=== PATIENT | female | born 1955 | race Caucasian/White ===

== ENCOUNTER 2022-12-13 09:46 | Outpatient (OUT) | payer MEDICARE, SELFPAY ==
--- NOTE | 2022-12-13 09:50 | US_ITS ---
[address] [address] Patient Name: NATHALY FOSTER MRN: [id number] date: 1955 Sex: F Assigned Patient Location: Current Patient Location: US Accession/Order Number: [id number] Exam Date: 12/13/2022 09:51 Report Date: 12/13/2022 12:19 At the request of: JULY SHAW Procedure: US abdomen complete PROCEDURE: US abdomen complete DATE: 12/13/2022 8:51 AM CDT COMPARISONS: None. INDICATION FOR EXAMINATION: 66 years Female Right Upper Quadrant Pain TECHNIQUE: Grayscale and color Doppler technique were utilized to evaluate the abdomen. FINDINGS: LIVER: There is no evidence of focal hepatic abnormalities. Hepatic echogenicity is within normal limits. PIPO HEPATIS: The common bile duct measures 3 mm in diameter. There is no evidence of intrahepatic biliary dilatation. The portal vein is patent with appropriate hepatopedal flow direction. GALLBLADDER: No calculi are identified within the gallbladder. The gallbladder wall thickness is within normal limits. There is no evidence of pericholecystic fluid. Sonographic Serrano sign is absent. PANCREAS: The visualized portions of the pancreas show no evidence of ultrasonic abnormality. KIDNEYS: The right kidney measures 10.0 x 5.0 x 4.6 cm. The left kidney measures 10.9 x 4.8 x 4.7 cm. There is no evidence of hydronephrosis. There is no ultrasonic evidence of solid focal renal masses or other significant renal parenchymal abnormalities. SPLEEN: The spleen is within normal limits in size. Spleen measures up to 9.6 cm in greatest dimension. There is no evidence of focal splenic abnormalities. THE AORTA AND INFERIOR VENA CAVA: The visualized portions of the abdominal aorta are normal in caliber. The visualized portion of the inferior vena cava is patent to Doppler interrogation. ASSESSMENT: These ultrasound images of the abdomen show no evidence of abnormalities. Electronically authenticated by: CATHERINE BE Date: 12/13/2022 12:19
== END 2022-12-13 09:47 | disposition home or self-care (01) ==
PROVIDERS: PCP Nurse Practitioner; Visit Provider Nurse Practitioner
DX: R10.11 Right upper quadrant pain (principal)
CPT/HCPCS: 76700

== ENCOUNTER 2023-04-23 07:32 | Outpatient (OUT) | payer MEDICARE, SELFPAY ==
--- NOTE | 2023-04-23 | MM_ITS ---
Patient Name: NATHALY FOSTER MR#: [id number] : 1955 Exam Date: 04/23/2023 Ordering Doctor: DR. DARRYL Crow REPORT PROCEDURE: MM TOMOSYNTHESIS SCREENING BI COMPARISON: MG MAMM SCREEN 3D [place]OR[place]ZO CAD, 04/06/2021. MG MAMM SCREEN 3D [place] CAD, 04/19/2022. INDICATIONS: Lorenzo Screening Mammogram Calculator Name NCI Breast Cancer Risk Assessment Tool 5 Year Breast Cancer Risk 1.20% Lifetime Breast Cancer Risk 4.60% Personal Breast Cancer No Personal Ovarian Cancer No Treatments None Family Cancers None LOCATION: [facility] BREAST COMPOSITION: Scattered areas fibroglandular density. FINDINGS: DIAGNOSTIC CATEGORY 2--BENIGN FINDING. NO CHANGE FROM COMPARISON. Scattered benign-appearing calcifications are present. Scattered benign-appearing lymph nodes are present. RIGHT BREAST: No significant suspicious finding. LEFT BREAST: No significant suspicious finding. RECOMMENDATIONS: ROUTINE MAMMOGRAM AND CLINICAL EVALUATION IN 12 MONTHS. PLEASE NOTE: A NORMAL MAMMOGRAM DOES NOT EXCLUDE THE POSSIBILITY OF BREAST CANCER. A CLINICALLY SUSPICIOUS PALPABLE LUMP SHOULD BE BIOPSIED. Dictated by: Shaun Patton MD on 04/23/2023 at 14:39 Approved by: Shaun Patton MD on 04/23/2023 at 14:41
== END 2023-04-23 07:33 | disposition home or self-care (01) ==
LOC: MAMMO 07:33
PROVIDERS: PCP Nurse Practitioner; Visit Provider Obstetrics & Gynecology
DX: Z12.31 Encounter for screening mammogram for malignant neoplasm of breast (principal)
CPT/HCPCS: 77063; 77067

== ENCOUNTER 2024-04-25 07:15 | Outpatient (OUT) | payer MEDICARE, SELFPAY ==
--- OUTSIDE RECORDS SUMMARY | 2024-04-25 07:17 | XMS_ITS | CCD ---
Author Organization [facility] Care Team Providers Care Metal Annealer Name Role Phone REQUEST, NONE LISTED Consulting Unavaila ble REQUEST, NONE LISTED Admitting Unavaila ble TOMPKINS, DR FELIBERTO Marte Primary Care Unavailable REQUEST, NONE LISTED Attending Unavaila ble REQUEST, NONE LISTED Admitting Unavaila ble TOMPKINS, DR FELIBERTO Marte Primary Care Unavailable REQUEST, NONE LISTED Attending Unavaila ble TOMPKINS, DR FELIBERTO Marte Primary Care Unavailable ZIEBER, DR KEN Jordan Consulting Unavailable NATAPRDARRYL MARIE Attending Unavailable NATAPRDARRYL MARIE Admitting Unavailable NATAPRAWIDARRYL FAYE Consulting Unavailable NATAPRDARRYL MARIE Attending Unavailable VIRIDIANA COLBY Attending Unavailable GLADYS MAYO Referring Unavailable JamesHelen hays Primary Care Physician Helen Ramirez Attending Unavailable JamesHelen Attending Unavailable JamesHelen Attending Unavailable JamesHelen hays Attending Unavailable Jesse Ott Attending Unavailable Helen Ramirez Referring Unavailable Ambrose Vigil Admitting Unavailable Ambrose Vigil Attending Unavailable Jesse Ott Attending Unavailable Jesse Ott Referring Unavailable Jesse Ott Admitting Unavailable MD Ambrose Vigil Admitting Unavailable MD Ambrose Vigil Attending Unavailable Jesse Ott Referring Unavailable Jesse Ott Admitting Unavailable Jesse Ott Attending Unavailable Jesse Ott Attending Unavailable Jesse Ott Attending Unavailable Jesse Ott Admitting Unavailable Jesse Ott Referring Unavailable Jesse Ott Attending Unavailable Jesse Ott Referring Unavailable Jesse tOt Attending Unavailable Jesse Ott Admitting Unavailable Allergies Allergy Classification Reported Allergen(s) Allergy Type Date of Onset Reaction(s) Facility (5 sources) Amoxicillin; Translations: [amoxicillin] Drug Allergy [facility] Repository (8 sources) Penicillin; Translations: [penicillin] Drug Allergy Eruption of skin (disorder) [facility] (3 sources) No Known Medication Allergies; Translations: [No Known Medication Allergies] Propensity to adverse reactions (disorder) [facility] Repository Medications Current Medications Medication Drug Class(es) Dates Sig (Normalized) Sig (Original) Multivitamins and Minerals (1 source) Start: 04-01-2024 Multivitamins and Minerals Oral, Daily Start Date: 04/01/24 Status: Ordered Vitamin C 500 mg Tab (1 source) Start: 04-01-2024 take 1 tablet by mouth once daily Vitamin C 500 mg Tab 500 mg = 1 tab(s), Oral, Daily Start Date: 04/01/24 Status: Ordered Vitamin D3 1000 intl units (25 mcg) Tab (1 source) Start: 04-01-2024 take 1 tablet by mouth once daily Vitamin D3 1000 intl units (25 mcg) Tab 25 mcg = 1 tab(s), Oral, Daily Start Date: 04/01/24 Status: Ordered Completed/Discontinued Medications Medication Drug Class(es) Dates Sig (Normalized) Sig (Original) hydroCHLOROthiazide 12.5 mg / irbesartan 150 mg oral tablet (5 sources) Thiazide Diuretic, Angiotensin 2 Receptor John Start: 01-15-2024 hydrochlorothiazi de-irbesartan 12.5 mg-150 mg Tab See Instructions, 90 tab(s), Refill(s) 0, TAKE 1 TABLET DAILY, [facility], 163, cm, 12/07/22 8:53:00 EDT, Height/Length Dosing, 90.2, kg, 12/07/22 8:53:00 EDT, Weight Dosing Start Date: 01/15/24 Status: Ordered Problems Problem Classification Problem Date Documented Da te Episodic/Chronic Abdominal hernia (12 sources) Hernia of anterior abdominal wall; Translations: [Ventral hernia without obstruction or gangrene] Onset: 03-03-2024 Episodic Abdominal pain (5 sources) Right upper quadrant pain 12-07-2022 Episodic Essential hypertension (5 sources) Hypertensive disorder 08-14-2022 Chronic Other bone disease and musculoskeletal deformities (1 source) Other specified disorders of bone density and structure, unspecified site; Translations: [OTH D/O BONE DEN STRUCT UNS SITE] Onset: 04-23-2022 Episodic Other nutritional; endocrine; and metabolic disorders (2 sources) Obese class I; Translations: [Body mass index (BMI) 34.0-34.9, adult] Onset: 03-03-2024 Chronic Other nutritional; endocrine; and metabolic disorders (1 source) Obesity; Translations: [Obesity, unspecified] Onset: 03-03-2024 Chronic Other nutritional; endocrine; and metabolic disorders (5 sources) Body mass index 30+ - obesity 01-28-2024 Chronic Other screening for suspected conditions (not mental disorders or infectious disease) (5 sources) Encounter for screening mammogram for malignant neoplasm of breast; Translations: [Encounter for screening for osteoporosis] Onset: 04-19-2022 Episodic Residual codes; unclassified (1 source) Asymptomatic menopausal state; Translations: [ASYMPTOMATIC MENOPAUSAL STATE] Onset: 04-23-2022 Episodic Unclassified (5 sources) Non-smoker 01-28-2024 Unclassified (10 sources) Patient encounter status 12-07-2022 Viral infection (5 sources) Disease caused by 2019-nCoV 08-14-2022 Comment on above: 04/27 Results Test Name Value Interpretation Reference Range Facility Surgical Pathology Reporton 04-18-2024 Surgical Pathology Report [address] [id number]- Surgical Pathology Report Collected Date/Time: 04/16/2024 11:59 EST Pathologist: Jared LIAO PhD, Tod Upton Date/Time: 04/16/2024 12:43 EST Tru LIAO, Jesse Ott MD, Jesse Santillan Surgical Pathology Report - 04/18/2024 12:39 EST - Auth (Verified) Final Diagnosis HERNIA SAC, HERNIORRHAPHY: - BENIGN MEMBRANOUS FIBROADIPOSE TISSUE WITH SINGLE LAYER MESOTHELIAL LINING AND FOCAL CONGESTION, CONSISTENT WITH HERNIA SACS AND CONTENTS. (Electronic Signature) Tod Coleman MD PhD 04/18/2024 12:39 Clinical Information Ventral hernia Pre-Op Diagnosis: Ventral hernia Procedure: Robot assisted ventral hernia repair Post-Op Diagnosis: Ventral hernia Specimen(s) Received Hernia sac Gross Description Received in formalin labeled with patient name, number, and hernia sac is a partially membranous light yellow/cruz/pink soft tissue measuring in aggregate 5 x 5 x 4.5 cm. Cross-section reveals no discrete mass. Director Of Search Engine Optimization section submitted in four cassettes. () [facility] Microscopic Description Microscopic examination performed unless gross only specified. Normal [facility] Comment on above: Performed By: #### [id number] #### [facility] [address] [place] [address] Main OR Intraoperative Recor don 04-17-2024 Main OR Intraoperative Record Main OR Intraoperative Record IntraOp Document Type FT Summary Primary Physician: Jesse Ott MD Finalized Date/Time: 04/17/24 09:01:48 Pt. Name: MILLY FOSTER Nae CostaB./Sex: 1955 Female Med Rec #: [id number] Physician: Jesse Ott MD Financial #: [id number] Pt. Type: A Room/Bed: [place] [address] Admit/Disch: 04/16/24 07:44:47 - 04/16/24 15:00:00 Institution: Case Times FT Entry 1 Patient Times In Room 04/16/24 09:59:00 Out Room 04/16/24 12:27:00 Procedure Times Start 04/16/24 10:21:00 Stop 04/16/24 12:21:00 Anesthesia Times Start 04/16/24 09:59:00 Stop 04/16/24 12:27:00 Last Modified By: Linda Vega RN 04/16/24 12:27:29 General Comments: Tirsoincamina robot docked at 1032, Dr. Ott seated at robot console at 1036, Dr. Ott left robot console at 1058, Davinci robot undocked at 1201. ESPINOZA Cuenca 04/17/24 Chart opened to review and send charges LRoth CSFA Case Attendance FT Entry 1 Entry 2 Entry 3 Case Attendee Dorie JUAREZ, Chicho Ott MD, Raleigh Santa CST Role Performed Anesthesiologist Surgeon - Primary INSPECTOR PACKER/SA Oil Dipper Time In 04/16/24 09:59:00 04/16/24 10:12:00 04/16/24 09:59:00 Time Out 04/16/24 12:27:00 04/16/24 12:06:00 04/16/24 12:27:00 Procedure HERNIA REPAIR, ROBOT HERNIA REPAIR, ROBOT HERNIA REPAIR, ROBOT ASSISTED(.) ASSISTED(.) ASSISTED(.) Comments Dr. Romero supervising, out for lunch at out for lunch [phone] - Dr. Romero covering lunch break. Last Modified By: Gary RN, Linda Vega RN, Linda Vega RN, Linda Marte 04/16/24 12:27:30 04/16/24 12:27:30 04/16/24 12:27:30 Entry 4 Entry 5 Entry 6 Case Attendee Enedelia Mckeon LPN RN, Linda Luong RN, Ann Goff Role Performed Scrub - Primary Pie Filler - Primary Staff - Other Time In 04/16/24 09:59:00 04/16/24 09:59:00 04/16/24 09:59:00 Time Out 04/16/24 12:27:00 04/16/24 12:27:00 04/16/24 10:15:00 Procedure HERNIA REPAIR, ROBOT HERNIA REPAIR, ROBOT HERNIA REPAIR, ROBOT ASSISTED(.) ASSISTED(.) ASSISTED(.) Comments out for lunch at out for lunch at room assist, In for [phone] luch relief at [phone] Last Modified By: Gary RN, Linda Vega RN, Linda Vega RN, Linda Marte 04/16/24 12:27:30 04/16/24 12:27:30 04/16/24 12:27:30 Entry 7 Case Attendee Nbuia Collins CST Role Performed INSPECTOR PACKER/SA Time In 04/16/24 11:07:00 Time Out 04/16/24 11:52:00 Procedure HERNIA REPAIR, ROBOT ASSISTED(.) Comments lunch relief Last Modified By: Linda Vega RN 04/16/24 12:27:30 General Comments: Jeronimo Ramos rep also present for this case. 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 operator Protocols FT Pre-Care Text: Implements protective measures prior to operative or invasive procedure, confirms identity before the operative or invasive procedure, verifies operative procedure, surgical site, and laterality Entry 1 Procedure(s) HERNIA REPAIR, ROBOT Patient Identity Birthday, ID Band ASSISTED(.) Verified (select at Check, Patient least 2): Participation Consents / H and P Anesthesia Consent, Operative Site N/A Verified H&P, Surgery/Procedure Marking Verified Consent, Transfusion Consent Surgical Site Yes Laterality Verified n/a Verified Procedure Verified Yes Correct Patient Yes Position Verified Availability Equipment, Implant, Prep Dry Yes Verified (If Medication Applicable) PreOp Antibiotic Yes Time Out Chicho Ellis Given Participants Tru Dunn MD, Jesse Shin, Raleigh Lombardi CST, Mike VIDAL, Enedelia Asher, Linda Vega RN Time Out Complete 04/16/24 10:20:00 Outcomes Met? Yes Last Modified By: Linda Vega RN 04/16/24 10:39:23 Post-Care Text: The patient is free from signs and symptoms of injury caused by extraneous objects Allergy Information FT Pre-Care Text: Verifies allergies Entry 1 Allergies Reviewed? Yes Allergies Reviewed Self/Patient With Outcomes Met? Yes Last Modified By: Linda Vega RN 04/16/24 10:39:29 Post-Care Text: The patient received appropriate medication(s) safely administered during the perioperative period Surgical Procedures FT Entry 1 Procedure Description Procedure HERNIA REPAIR, ROBOT Modifiers . ASSISTED Surgeon Description ROBOTIC ASSISTED VENTRAL HERNIA REPAIR Primary Procedure Yes Primary Surgeon Tru LIAO, Jesse Shin Start 04/16/24 10:21:00 Stop 04/16/24 12:21:00 Anesthesia Type General Surgical Service General Wound Class 1 - Clean Last Modified By: Linda Vega RN 04/16/24 12:21:15 General Case Data FT Pre-Care Text: Classifies surgical wound, implements aseptic technique, initiates traffic control Entry 1 Case Information OR OR 6 FT Case Level Level 5 Wound Class 1 - Clean Specialty General ASA Class 2 Preop Diagnosis VENTRAL HERNIA Postop Same As Preop Yes Postop Diagnosis VENTRAL HERNIA Outcomes Met? Yes Last Modified By: Linda Vega RN 04/16/24 10:39:41 Post-Care Text: The patient is free from signs and symptoms of infection Skin (more content not included)... Normal [facility] Discharge Instructionson Discharge Instructions Discharge Instructions MILLY FOSTER :1955 Visit Date:04/16/2024 Inpatient Discharge Instructions Your Care Team Admitting Physician - Jesse Ott MD. Referring Physician - Jesse Ott MD Reason for Your Visit VENTRAL HERNIA Discharge Vitals Temperature (Temporal Artery) 36.1 ???C Heart Rate (Monitored) 73 Respiratory Rate 18 Blood Pressure 125/72 What to do next Instructions From Your Doctor Event Name Event Result Discharge Instructions Freetext Okay to remove outer dressings and shower tomorrow. Do not remove Steri-Strips or submerge incision underwater is in pool or tub for 2 weeks after surgery. No if greater than 35 pounds for 6 weeks after surgery. Discharge Activity Resume normal activities in 24 hours, Expect minimal amount of drainage and/or bleeding, Activity as tolerated Discharge Restrictions No driving for 24 hrs, Do not make important decisions for 24 hours, Do not drink alcoholic beverages for 24 hours Discharge Diet(s) Regular Call Your Doctor For Persistent or heavy bleeding, Temperature above 101.5 degrees, Redness, swelling, or pus at operative site, Severe pain at the operative site Discharge Instructions Discharge Instructions Previously Scheduled Follow-Up Appointments Sunday 11:40 AM EST With: Jesse Ott MD Where: [facility] [address] [place] [address]- Sunday 8:20 AM EST With: Helen Gay Where: [address] [address]- Sunday 8:00 AM EST With: Where: [address] [address]- New Follow Up Appointments after Discharge Follow Up with Jesse Ott When: Comments: Appointment has already been scheduled Where: [address] [place] [address]- [phone] Business (1) Medications What How Much When Why Instructions Next Dose New acetaminophen-hydroco done ([place] 325 mg-5 mg oral tablet) 1 Tablets By Mouth Every 6 hours as needed for as needed for pain Ventral hernia Pickup at [facility]/pharmacy #[id number] Unchanged ascorbic acid (Vitamin C 500 mg Tab) 1 Tablets By Mouth Every day Unchanged cholecalciferol (Vitamin D3 1000 intl units (25 mcg) Tab) 1 Tablets By Mouth Every day Unchanged hydrochlorothiazide-i rbesartan (hydrochlorothiazide- irbesartan 12.5 mg-150 mg Tab) See instructions TAKE 1 TABLET DAILY Unchanged multivitamin with minerals (Multivitamins and Minerals) By Mouth Every day Pharmacy Information [facility]/pharmacy #[id number]: [address] [place], [place] [phone] Allergies penicillin (Rash) Devices Implanted/Removed This Visit Notice: You have devices implanted this visit that may not be MRI compatible. Implanted HERNIA REPAIR, ROBOT ASSISTED Abdomen MESH STEX ROUND 12CM (4.8 ) [[id number]] 04/16/2024 Education Materials Laparoscopic Ventral Hernia Repair, Care After The following information offers guidance on how to care for yourself after your procedure. Your health care provider may also give you more specific instructions. If you have problems or questions, contact your health care provider. What can I expect after the procedure? After the procedure, it is common to have pain, discomfort, or soreness. Follow these instructions at home: Medicines ??? Take coun-uex-iktdxhj and prescription medicines only as told by your health care provider. ??? Ask your health care provider if the medicine prescribed to you: ? Requires you to avoid driving or using machinery. ? Can cause constipation. You may need to take these actions to prevent or treat constipation: ? Drink enough fluid to keep your urine pale yellow. ? Take posf-ocl-dutfbbw or prescription medicines. ? Eat foods that are high in fiber, such as beans, whole grains, and fresh fruits and vegetables. ? Limit foods that are high in fat and processed sugars, such as fried or sweet foods. Incision care ??? Follow instructions from your health care provider about how to take care of your incisions. Make sure you: ? Wash your hands with soap and water for at least 20 seconds before and after you change your bandage (dressing) or before you touch your abdomen. If soap and water are not available, use hand field test engineer. ? Change your dressing as told by your health care provider. ? Leave stitches (sutures), skin glue, or adhesive strips in place. These skin closures may need to stay in place for 2 weeks or longer. If adhesive strip edges start to loosen and curl up, you may trim the loose edges. Do not remove adhesive strips completely unless your health care provider tells you to do that. ??? Check your inci (more content not included)... Normal [facility] Comment on above: Result Comment: Elec tronically Signed By: Monika DORAN, Jyothi Child\.br\Date and Time Signed: 04/16/24 12:46 EST Inpatient Patient Summaryon 04-16-2024 Inpatient Patient Summary Inpatient Patient Summary [place] [id number] [facility] Clinical Discharge Instructions PERSON INFORMATION Name: MILLY FOSTER PHYSICIANS Admitting Physician: Jesse Ott MD Attending Physician: Jesse Ott MD PCP: Helen Gay Discharge Diagnosis: Comment: PATIENT EDUCATION INFORMATION Instructions: Laparoscopic Ventral Hernia Repair, Care After Medication Leaflets: Follow up: With: Address: When: Jesse Ott [address] [place] [phone] Business (1) Comments: Appointment has already been scheduled Type Location Start [facility] Post Op [facility] 04/25/2024 11:40 AM 04/25/2024 12:00 PM Confirmed FM Open [facility] 07/09/2024 8:20 AM 07/09/2024 8:40 AM Confirmed FM Medicare Wellness Subsequent [facility] 03/16/2025 8:00 AM 03/16/2025 9:00 AM Confirmed MEDICATION LIST New Medications [id number], [address] [place], [place] [phone], [phone] acetaminophen-hydroco done ([place] 325 mg-5 mg oral tablet) 1 Tablets By Mouth every 6 hours as needed as needed for pain. Refills: 0. Medications to Continue with No Changes Other Medications ascorbic acid (Vitamin C 500 mg Tab) 1 Tablets By Mouth every day. cholecalciferol (Vitamin D3 1000 intl units (25 mcg) Tab) 1 Tablets By Mouth every day. hydrochlorothiazide-i rbesartan (hydrochlorothiazide- irbesartan 12.5 mg-150 mg Tab) TAKE 1 TABLET DAILY. Refills: 0. multivitamin with minerals (Multivitamins and Minerals) By Mouth every day. Comment: Normal [facility] Main OR PACU I Recordon 04-06 Main OR PACU I Record Main OR PACU I Rec ord PACU Phase I Document Type FT Summary Primary Physician: Jesse Ott MD Finalized Date/Time: 04/16/24 13:09:19 Pt. Name: CRISTIAN MILLYMAGDA Nelson/Sex: 1955 Female Med Rec #: [id number] Physician: Jesse Ott MD Financial #: [id number] Pt. Type: A Room/Bed: [place] [address] Admit/Disch: 04/16/24 07:44:47 - Institution: Case Times PACU I FT Pre-Care Text: Identifies barriers to communication and implements measures to provide psychological support Develops individualized plan of care, and ensures continuity of care Maintains patient's dignity and privacy, and maintains patient confidentiality Identifies and reports philosophical, cultural, and spiritual beliefs and values Identifies individual values and wishes concerning care Implements aseptic technique, and administers prescribed antibiotic therapy and immunizing agents as ordered Evaluates postoperative tissue perfusion Implements thermoregulation measures, and monitors body temperature Evaluates postoperative respiratory status Evaluates postoperative cardiac status Evaluates postoperative neurological status Assesses pain control, collaborated in initiating patient-controlled analgesia and implements alternative methods of pain control Verifies allergies, administers prescribed medications and solutions, evaluates response to medications Entry 1 In PACU I 04/16/24 12:29:00 Discharge from PACU 04/16/24 12:59:00 I Outcomes Met? Yes Last Modified By: Evelyn Vargas RN 04/16/24 13:08:52 Post-Care Text: The patient demonstrates knowledge of the expected response to the operative or invasive procedure The patient's care is consistent with the individualized perioperative plan of care The patient's right to privacy is maintained The patient's value system, lifestyle, ethnicity, and culture are considered, respected, and incorporated into the perioperative plan of care The patient participates in decisions affecting his or her perioperative plan of care The patient is free from signs and symptoms of infection The patient has wound/tissue perfusion consistent with or improved from baseline levels established preoperatively The patient is at or returning to normothermia at the conclusion of the immediate postoperative period The patient's respiratory function is consistent with or improved from baseline levels established preoperatively The patient's cardiovascular status is consistent with or improved from baseline levels established preoperatively The patient's cardiovascular status is consistent with or improved from baseline levels established preoperatively The patient demonstrates and/or reports adequate pain control throughout the perioperative period The patient received appropriate medication(s), safely administered during the perioperative period Acuity Level PACU I FT Entry 1 Start Time 04/16/24 12:29:00 Stop Time 04/16/24 12:59:00 Acuity Level Acuity Level I Last Modified By: Evelyn Vargas RN 04/16/24 13:09:12 Finalized By: Evelyn Vargas RN Document Signatures Signed By: Evelyn Vargas RN 04/16/24 13:09 Normal [facility] Main OR PACU II Recordon Main OR PACU II Record Main OR PACU II Record PACU Phase II Document Type FT Summary Primary Physician: Jesse Ott MD Finalized Date/Time: 04/16/24 15:13:34 Pt. Name: MILLY FOSTER/Sex: 1955 Female Med Rec #: [id number] Physician: Jesse Ott MD Financial #: [id number] Pt. Type: A Room/Bed: [facility]/ Admit/Disch: 04/16/24 07:44:47 - Institution: Case Times PACU II FT Pre-Care Text: Identifies barriers to communication and implements measures to provide psychological support and determines knowledge level Develops individualized plan of care, and ensures continuity of care Maintains patient's dignity and privacy, and maintains patient confidentiality Identifies and reports philosophical, cultural, and spiritual beliefs and values Identifies individual values and wishes concerning care administers prescribed antibiotic therapy and immunizing agents as ordered, Evaluates postoperative tissue perfusion Implements thermoregulation measures, and monitors body temperature Evaluates postoperative respiratory status Evaluates postoperative cardiac status Evaluates postoperative neurological status Assesses pain control, collaborated in initiating patient-controlled analgesia and implements alternative methods of pain control Verifies allergies, administers prescribed medications and solutions, evaluates response to medications Entry 1 In PACU II 04/16/24 13:00:00 Discharge from PACU 04/16/24 15:00:00 II Outcomes Met? Yes Last Modified By: Jyothi Frank RN 04/16/24 15:13:32 Post-Care Text: The patient demonstrates knowledge of the expected response to the operative or invasive procedure The patient's care is consistent with the individualized perioperative plan of care The patient's right to privacy is maintained The patient's value system, lifestyle, ethnicity, and culture are considered, respected, and incorporated into the perioperative plan of care The patient participates in decisions affecting his or her perioperative plan of care. The patient is free from signs and symptoms of infection The patient has wound/tissue perfusion consistent with or improved from baseline levels established preoperatively The patient is at or returning to normothermia at the conclusion of the immediate postoperative period The patient's respiratory function is consistent with or improved from baseline levels established preoperatively The patient's cardiovascular status is consistent with or improved from baseline levels established preoperatively The patient's neurological status is consistent with or improved from baseline levels established preoperatively The patient demonstrates and/or reports adequate pain control throughout the perioperative period The patient received appropriate medication(s), safely administered during the perioperative period Finalized By: Jyothi Frank RN Document Signatures Signed By: Jyothi Frank RN 04/16/24 15:13 Normal [facility] Main OR Preoperative Recordo n 04-16-2024 Main OR Preoperative Record Main OR Preoperative Record PreOp Document Type FT Summary Primary Physician: Jesse Ott MD Finalized Date/Time: 04/16/24 10:49:10 Pt. Name: MILLY FOSTER/Sex: 1955 Female Med Rec #: [id number] Physician: Jesse Ott MD Financial #: [id number] Pt. Type: A Room/Bed: [place] H[facility]PITAL/ Admit/Disch: 04/16/24 07:44:47 - Institution: Case Times PreOp FT Pre-Care Text: Verifies consent for planned procedure, identifies individual values and wishes concerning care, includes family members in perioperative teaching Entry 1 Patient Times. In Pre Surgery 04/16/24 07:50:00 Out Pre Surgery 04/16/24 09:57:00 Outcomes Met? Yes Last Modified By: Linda Vega RN 04/16/24 10:49:09 Post-Care Text: The patient participates in decisions affecting his or her perioperative plan of care Finalized By: Linda Vega RN Document Signatures Signed By: Linda Vega RN 04/16/24 10:49 Normal [facility] Operative Reporton 4 Operative Report Operative Report Indication for Surgery 68-year-old female with symptomatic ventral hernia here today for robotic assisted laparoscopic repair Preoperative Diagnosis VENTRAL HERNIA Postoperative Diagnosis VENTRAL HERNIA Operation Robotic repair of 5 Demeter ventral hernia with mesh using IPOM technique Surgeon(s) Tru LIAO, Jesse Shin (Surgeon - Primary) Oil Dipper [place] Anesthesia Elliot Guidry MD (Solutions Engineer) Chicho Ellis (Anesthesiologist Oil Dipper) Estimated Blood Loss 10 cc Urine Output Void prior to OR Findings 5 cm defect repaired with 12 cm Symbotex mesh in IPOM fashion Specimen(s) Pathology Tissue Exam (Hernia sac,AP Specimen) Technique After obtaining informed sent patient was taken to the operating room and positioned supine on the operating room table. General anesthesia was achieved. The patient received perioperative antibiotics. The abdomen was prepped and draped in a sterile fashion. A timeout was performed. A 5 mm incision was made in the Danielson's point. A Veress needle was inserted the peritoneal cavity was inflated to 20 mmHg. Using a 5 mm Optiview trocar the peritoneal cavity was entered. There is no evidence of injury in our entry. Under direct visualization three 8 mm robotic trochars were inserted in the right side of the abdominal wall. The robot was deployed for docking and the robotic arms were docked. The defect was found to measure 5 cm in the anterior abdominal wall. A preperitoneal pocket was done to be created however the peritoneal tissue was exceptionally thin. Multiple holes in the peritoneum were made. The decision was made to convert to from an rTAPP to an IPOM procedure. The the hernia sac was excised. The fascial edges were cleaned up. Using an 0 V-Loc suture the fascial defect was closed in a running fashion. Taking care to tack down some of the free peritoneal tissue in order to recreate the umbilicus. A 12 cm Symbotex synthetic mesh was inserted and placed against the abdominal wall with the center overlying the fascial closure. To initially tack it in place the remainder of the 0 V-Loc suture was used to through the first few stitches. The rest of the circumference of the mesh was sutured in place using a 2-0 V-Loc suture. The mesh was found to lay flat in good position. The hernia sac was removed in an Endo Catch bag. All of our needles were removed in the peritoneal cavity. All instruments removed under direct visualization. The robot was undocked and moved from the operative field. All skin incisions were closed using 4-0 Monocryl in a subcuticular fashion. Skin glue was applied. All counts were correct x2. The patient was awoken returned to the recovery room in stable condition. The patient tolerated the procedure without difficulty. Normal [facility] Comment on above: Result Comment: Elec tronically Signed By: Jesse Ott MD\.br\Date and Time Signed: 04/16/24 12:36 EST Outpatient Surgery Discharge Instructionon 04-16-2024 Outpatient Surgery Discharge Instruction Outpatient Surgery Discharge Instruction [place] [id number] Patient Discharge Instructions PERSON INFORMATION Name: MILLY FOSTER Date of : 1955 Current Date: 04/16/2024 12:33:42 PHYSICIANS Admitting Physician: Jesse Ott MD Discharge Diagnosis: MILLY FOSTER has been given the following list of follow-up instructions, prescriptions, and patient education materials: PATIENT FOLLOW-UP INFORMATION Diet: Regular Discharge Activity: Resume normal activities in 24 hours, Expect minimal amount of drainage and/or bleeding, Activity as tolerated Discharge Restrictions: No driving for 24 hrs, Do not make important decisions for 24 hours, Do not drink alcoholic beverages for 24 hours Call Your Doctor For: Persistent or heavy bleeding, Temperature above 101.5 degrees, Redness, swelling, or pus at operative site, Severe pain at the operative site Additional Instructions: Okay to remove outer dressings and shower tomorrow. Do not remove Steri-Strips or submerge incision underwater is in pool or tub for 2 weeks after surgery. No if greater than 35 pounds for 6 weeks after surgery. IF UNABLE TO CONTACT YOUR PHYSICIAN AND YOU FEEL IT IS AN EMERGENCY, GO TO THE NEAREST EMERGENCY ROOM OR CALL 911 CRISTIAN Sibley PAMELA S, have received the attached patient education materials/instruction s and have verbalized understanding: May we do a follow up call? Yes No I was present when discharge instructions were given Patient Signature Date Clinican/Nurse Signature Date Follow up: With: Address: When: Jesse Ott [address] [place] [address], [place] [address], [address] [address] [phone] Business (1) Comments: Appointment has already been scheduled Type Location Start [facility] Post Op [facility] 04/25/2024 11:40 AM 04/25/2024 12:00 PM Confirmed FM Open [facility] 07/09/2024 8:20 AM 07/09/2024 8:40 AM Confirmed FM Medicare Wellness Subsequent [facility] 03/16/2025 8:00 AM 03/16/2025 9:00 AM Confirmed Pharmacy Information: You may receive a survey from [employer] asking you to rate your care experience. Your feedback is important and will help us understand what we do well and how we can improve the quality of care we provide to you, your loved ones and our community. It???s an honor to serve you. Thank you for choosing [facility] HERE ARE THE MEDICATION CHANGES THAT OCCURRED DURING YOUR HOSPITAL STAY New Medications [id number], [address], [place] [id number], [phone] acetaminophen-hydroco done ([place] 325 mg-5 mg oral tablet) 1 Tablets By Mouth every 6 hours as needed as needed for pain. Refills: 0. Medications to Continue with No Changes Other Medications ascorbic acid (Vitamin C 500 mg Tab) 1 Tablets By Mouth every day. cholecalciferol (Vitamin D3 1000 intl units (25 mcg) Tab) 1 Tablets By Mouth every day. hydrochlorothiazide-i rbesartan (hydrochlorothiazide- irbesartan 12.5 mg-150 mg Tab) TAKE 1 TABLET DAILY. Refills: 0. multivitamin with minerals (Multivitamins and Minerals) By Mouth every day. PATIENT EDUCATION INFORMATION Instructions: Laparoscopic Ventral Hernia Repair, Care After The following information offers guidance on how to care for yourself after your procedure. Your health care provider may also give you more specific instructions. If you have problems or questions, contact your health care provider. What can I expect after the procedure? After the procedure, it is common to have pain, discomfort, or soreness. Follow these instructions at home: Medicines ??? Take utxj-rkr-lntjrxp and prescription medicines only as told by your health care provider. ??? Ask your health care provider if the medicine prescribed to you: ? Requires you to avoid driving or using machinery. ? Can cause constipation. You may need to take these actions to prevent or treat constipation: ? Drink enough fluid to keep your urine pale yellow. ? Take ewlp-iek-jiqjljr or prescription medicines. ? Eat foods that are high in fiber, such as beans, whole grains, and fresh fruits and vegetables. ? Limit foods that are high in fat and processed sugars, such as fried or sweet foods. Incision care ??? Follow instructions from your health care provider about how to take care of your incisions. Make sure you: ? Wash your hands with soap and water for at least 20 seconds before and after you change your bandage (dressing) or before you touch your abdomen. If soap and water are not available, use hand field test engineer. ? Jared (more content not included)... Normal [facility] BMPon 04-01-2024 Anion gap [Moles/Vol] 12 mmol/L Normal 6-16 [facility] Comment on above: Performed By: #### 2 [id number] #### [facility] [address] [place] [address] Calcium [Mass/Vol] 9.6 mg/dL Normal 8.9-11.1 [facility] Comment on above: Performed By: #### 2 [id number] #### [facility] [address] [place] [address] Chloride [Moles/Vol] 101 mmol/L Normal 101-111 [facility] Comment on above: Performed By: #### 2 [id number] #### [facility] [address] [place] [address] CO2 [Moles/Vol] 31 mmol/L Normal 21-31 [facility] Comment on above: Performed By: #### 2 [id number] #### [facility] [address] [place] [address] Creatinine [Mass/Vol] 0.7 mg/dL Normal 0.5-1.3 [facility] Comment on above: Performed By: #### 2 [id number] #### [facility] [address] [place] [address] Glucose [Mass/Vol] 84 mg/dL Normal 55-199 [facility] Comment on above: Performed By: #### 2 [id number] #### [facility] [address] [place] [address] Potassium [Moles/Vol] 3.5 mmol/L Normal 3.5-5.3 [facility] Comment on above: Performed By: #### 2 [id number] #### [facility] [address] [place] [address] Sodium [Moles/Vol] 140 mmol/L Normal 135-145 [facility] Comment on above: Performed By: #### 2 [id number] #### [facility] [address] [place] [address] Urea nitrogen [Mass/Vol] 15 mg/dL Normal 5-21 [facility] Comment on above: Performed By: #### 2 [id number] #### [facility] [address] [place] [address] Urea nitrogen/Creatinine [Mass ratio] 21 No Units High 10-20 [facility] Comment on above: Performed By: #### 2 [id number] #### [facility] [address] [place] [address] CBC w/ Auto Diffon 4 Basophils/100 WBC (Bld) 1.1 % Normal 0.0-2.0 [facility] Comment on above: Performed By: #### 2 [id number] #### [facility] [address] [place] [address] Basophils/Leukocytes Auto (Bld) [Pure # fraction] 0.1 E9/L Normal 0.0-0.2 [facility] Comment on above: Performed By: #### 2 [id number] #### [facility] [address] [place] [address] Eosinophils (Bld) [#/Vol] 0.4 E9/L Normal 0.0-0.5 [facility] Comment on above: Performed By: #### 2 [id number] #### [facility] [address] [place] [address] Eosinophils/100 WBC (Bld) 5.4 % Normal 0.0-8.0 [facility] Comment on above: Performed By: #### 2 [id number] #### [facility] [address] [place] [address] Erythrocyte distribution width (RBC) [Ratio] 13.1 % Normal 10.9-14.2 [facility] Comment on above: Performed By: #### 2 [id number] #### [facility] [address] [place] [address] Hematocrit (Bld) [Volume fraction] 40.5 % Normal 34.0-46.0 [facility] Comment on above: Performed By: #### 2 [id number] #### [facility] [address] [place] [address] Hemoglobin (Bld) [Mass/Vol] 13.9 g/dL Normal 12.0-16.0 [facility] Comment on above: Performed By: #### 2 [id number] #### [facility] [address] [place] [address] Lymphocytes (Bld) [#/Vol] 2.3 E9/L Normal 1.0-4.0 [facility] Comment on above: Performed By: #### 2 [id number] #### [facility] [address] [place] [address] Lymphocytes/100 WBC (Bld) 29.3 % Normal 14.0-50.0 [facility] Comment on above: Performed By: #### 2 [id number] #### [facility] [address] [place] [address] MCH (RBC) [Entitic mass] 30.6 pg Normal 27.0-34.0 [facility] Comment on above: Performed By: #### 2 [id number] #### [facility] [address] [place] [address] MCHC (RBC) [Mass/Vol] 34.4 g/dL Normal 31.4-36.0 [facility] Comment on above: Performed By: #### 2 [id number] #### [facility] [address] [place] [address] MCV (RBC) [Entitic vol] 89.1 fL Normal 80.0-100.0 [facility] Comment on above: Performed By: #### 2 [id number] #### [facility] [address] [place] [address] Monocytes (Bld) [#/Vol] 0.6 E9/L Normal 0.2-1.0 [facility] Comment on above: Performed By: #### 2 [id number] #### [facility] [address] [place] [address] Neutrophils (Bld) [#/Vol] 4.4 E9/L Normal 2.0-7.5 [facility] Comment on above: Performed By: #### 2 [id number] #### [facility] [address] [place] [address] Neutrophils/100 WBC (Bld) 56.4 % Normal 36.0-75.0 [facility] Comment on above: Performed By: #### 2 [id number] #### [facility] [address] [place] [address] Platelet 325.0 E9/L Normal 150.0-500.0 [facility] Comment on above: Performed By: #### 2 [id number] #### [facility] [address] [place] [address] Platelet mean volume (Bld) [Entitic vol] 8.0 fL Normal 6.4-10.8 [facility] Comment on above: Performed By: #### 2 [id number] #### [facility] [address] [place] [address] RBC (Bld) [#/Vol] 4.5 E12/L Normal 4.3-5.9 [facility] Comment on above: Performed By: #### 2 [id number] #### [facility] [address] [place] [address] WBC corrected for nucl RBC Auto (Bld) [#/Vol] 7.8 E9/L Normal 4.0-11.0 [facility] Comment on above: Performed By: #### 2 [id number] #### [facility] [address] [place] [address] CHEMISTRYOrdered By: SYSTEM SYSTEM on 04-01-2024 Anion gap [Moles/Vol] 12 mmol/L Normal 6 - 16 mEq/L R emisol Chem Calcium [Mass/Vol] 9.6 mg/dL Normal 8.9 - 11. 1 mg/dL Remisol Chem Chloride [Moles/Vol] 101 mmol/L Normal 101 - 1 11 mmol/L Remisol Chem CO2 [Moles/Vol] 31 mmol/L Normal 21 - 31 mmol/L Remis ol Chem Creatinine [Mass/Vol] 0.7 mg/dL Normal 0.5 - 1.3 mg/dL Remisol Chem eGFR 95 mL/min/1.73 m2 Normal >=59mL/min /1.7 3 m2 Remisol Chem Glucose [Mass/Vol] 84 mg/dL Normal 55 - 199 mg/dL Re misol Chem Potassium [Moles/Vol] 3.5 mmol/L Normal 3.5 - 5.3 mmol/L Remisol Chem Sodium [Moles/Vol] 140 mmol/L Normal 135 - 145 mmol/L Remisol Chem Urea nitrogen [Mass/Vol] 15 mg/dL Normal 5 - 21 mg/dL Remisol Chem Urea nitrogen/Creatinine [Mass ratio] 21 mg/mg High 10 - 20 Remisol Chem HEMATOLOGYOrdered By: SYSTEM SYSTEM on 04-01-2024 Basophils/100 WBC (Bld) 1.1 % Normal 0.0 - 2.0 % Remisol Heme Basophils/Leukocytes Auto (Bld) [Pure # fraction] 0.1 E9/L Normal 0.0 - 0.2 E9/L Remisol Heme Eosinophils (Bld) [#/Vol] 0.4 E9/L Normal 0.0 - 0.5 E9/L Remisol Heme Eosinophils/100 WBC (Bld) 5.4 % Normal 0.0 - 8.0 % Remisol Heme Erythrocyte distribution width (RBC) [Ratio] 13.1 % Normal 10.9 - 14.2 % Remisol Heme Hematocrit (Bld) [Volume fraction] 40.5 % Normal 34.0 - 46.0 % Remisol Heme Hemoglobin (Bld) [Mass/Vol] 13.9 g/dL Normal 12.0 - 16.0 gm/dL Remisol Heme Lymphocytes (Bld) [#/Vol] 2.3 E9/L Normal 1.0 - 4.0 E9/L Remisol Heme Lymphocytes/100 WBC (Bld) 29.3 % Normal 14.0 - 50.0 % Remisol Heme MCH (RBC) [Entitic mass] 30.6 pg Normal 27.0 - 34.0 pg Remisol Heme MCHC (RBC) [Mass/Vol] 34.4 g/dL Normal 31.4 - 36.0 gm/dL Remisol Heme MCV (RBC) [Entitic vol] 89.1 fL Normal 80.0 - 100.0 fL Remisol Heme Monocytes (Bld) [#/Vol] 0.6 E9/L Normal 0.2 - 1.0 E9/L Remisol Heme Monocytes/100 WBC (Bld) 7.8 % Normal 4.0 - 14.0 % Remisol Heme Neutrophils (Bld) [#/Vol] 4.4 E9/L Normal 2.0 - 7.5 E9/L Remisol Heme Neutrophils/100 WBC (Bld) 56.4 % Normal 36.0 - 75.0 % Remisol Heme Platelet 325.0 E9/L Normal 150.0 - 500.0 E9/L Remisol Heme Platelet mean volume (Bld) [Entitic vol] 8.0 fL Normal 6.4 - 10.8 fL Remisol Heme RBC (Bld) [#/Vol] 4.5 E12/L Normal 4.3 - 5.9 E12/L Remisol Heme WBC corrected for nucl RBC Auto (Bld) [#/Vol] 7.8 E9/L Normal 4.0 - 11.0 E9/L Remisol Heme XR Chest 2 Viewson XR Chest 2 Views Exam Date/Time: 04/01/2024 15:24 EST Reason for Exam: P.A.T. Report IMPRESSION: NO RADIOGRAPHIC EVIDENCE OF ACTIVE DISEASE IN THE CHEST. CLINICAL INFORMATION: P.A.T. COMPARISON: None available. FINDINGS: Two views of the chest were obtained. Heart and mediastinum appear normal. The lungs appear clear. Visualized bony thorax and remainder of the chest appears unremarkable. Ordering Provider: German Munroe FINAL REPORT Dictated: 04/01/2024 3:56 pm Gwyn Jordan MD Signed (Electronic Signature): 04/01/2024 3:56 pm Signed by: Gwyn Jordan MD Transcribed by: YOMI Technologist: MAGDIEL Technical Comments Radiation Dose: Ka,r in mGy = . DAP = . Normal [facility] eGFRon 04-01-2024 eGFR 95 mL/min/1.73 m2 Normal >=59 [facility] Comment on above: Performed By: #### 1 [id number] ####[facility] [id number] [facility] [place] [address] General Surgery Office/Clini c Noteon 03-24-2024 General Surgery Office/Clinic Note General Surgery Office/Clinic Note Chief Complaint Ventral hernia HPI Staff Milly is a 68 y.o. female here for review of CT Scan done 03/18/24 History of Present Illness 68-year-old female known to the general surgery service for ventral hernia, here for follow-up to discuss results of CT scan of the abdomen pelvis which showed a 3 cm defect and supraumbilical hernia which contained portion of the bowel as well as intraperitoneal fat. She remains asymptomatic and denies symptoms of obstruction, incarceration or strangulation Physical Exam Large midline ventral hernia containing bowel and intraperitoneal fat Assessment/Plan 1. 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 Ordered: E&M of Est. Patient Moderate 30-39 Min [id number] Hospital-based Procedure Pre-Surgery Testing per Anesthesia Portions of this record may have been created with voice recognition artificial intelligence software, specifically ChangePanda, Luminal and or Ebook Glue. Substitutions may have occurred due to the inherent limitations of voice recognition and artificial intelligence software. Follow-up No qualifying data available Problem List/Past Medical History Ongoing Abdominal hernia BMI 35.0-35.9,adult COVID-19 Hypertension Nonsmoker Right upper quadrant pain Screening for hyperlipidemia Ventral hernia Wellness examination Historical No qualifying data Procedure/Surgical History Cataract surgery, Colonoscopy. Medications hydrochlorothiazide-i rbesartan 12.5 mg-150 mg Tab, See Instructions Allergies penicillin (Rash) Social History Alcohol - Denies Alcohol Use, 03/03/2024 Current, Beer, Wine, 1-2 times per week, Previous treatment: None. Alcohol use interferes with work or home: No. Drinks more than intended: No. Others hurt by drinking: No. Ready to change: No. Household alcohol concerns: No., 03/10/2024 Substance Abuse - Denies Substance Abuse, 03/03/2024 Never, 03/10/2024 Tobacco - Denies Tobacco Use, 03/10/2024 Never (less than 100 in lifetime) Tobacco Use:., 03/24/2024 Family History Alcoholism: Father. Diabetes mellitus type 2: Sister and Brother. Hypertension: Sister and Brother. Immunizations Vaccine Date Status Comments influenza virus vaccine, inactivated - Not Given Patient Refuses influenza virus vaccine, inactivated 04/19/2022 Recorded influenza virus vaccine, inactivated 02/25/2020 Recorded influenza virus vaccine, inactivated 02/25/2019 Recorded influenza virus vaccine, inactivated 03/22/2018 Recorded hepatitis B adult vaccine 06/22/2000 Recorded Hep A, unspecified formulation 06/22/2000 Recorded hepatitis B adult vaccine 01/20/2000 Recorded Td(adult) unspecified formulation 12/15/1999 Recorded hepatitis B adult vaccine 12/15/1999 Recorded Hep A, unspecified formulation 12/15/1999 Recorded Normal [facility] Comment on above: Result Comment: Elec tronically Signed By: Tru LIAO, Jesse Chowdhurybr\Date and Time Signed: 03/24/24 15:[address] Abdomen/Pelvis w/ Contras ton 03-19-2024 CT Abdomen/Pelvis w/ Contrast Exam Date/Time: 03/18/2024 11:10 EST Reason for Exam: Large ventral hernia;Other (please specify) Report IMPRESSION: 3.2 CM MIDLINE VENTRAL WALL HERNIA CONTAINING FAT AND COLON. NO CT EVIDENCE INCARCERATION OR OBSTRUCTION. 4 MM PERIUMBILICAL VENTRAL WALL HERNIA JUST INFERIOR TO IT. AGAIN, NO CT EVIDENCE OF OBSTRUCTION. GRADE [address] OF THE ABDOMEN AND PELVIS WITH INTRAVENOUS CONTRAST MEDIUM. History: Large ventral hernia. Technical Factors: CT imaging of the abdomen and pelvis were obtained and formatted as 5 mm contiguous axial images from the domes of the diaphragm to the symphysis pubis. Sagittal and coronal reconstructions were also obtained. Oral contrast medium: Barium sulfate, 900 mL.. Intravenous contrast medium: Isovue-300, 100 mL.. Comparison: None. Findings: Lower chest: Lung bases clear. Cardiac size normal. No pericardial effusion. No significant coronary artery calcification evident. Liver: Normal in size, shape, and attenuation. Bile Ducts: Normal in caliber. Gallbladder: No stones or wall thickening. Pancreas: Normal without masses, cysts, ductal dilatation or calcification. Spleen: Normal in size without masses or calcifications. No splenules. Kidneys: Normal in size and enhancement. No hydronephrosis, masses, or stones. Adrenals: Normal. Small bowel: Normal in caliber. Appendix: Normal. Colon: Normal in caliber. Report Peritoneum: No ascites, free air, or fluid collections. Vessels: Aorta normal in course and caliber. Portal vein, splenic vein, superior mesenteric vein are patent. Lymph nodes: Retroperitoneal: No enlarged retroperitoneal lymph nodes. Mesenteric: No enlarged mesenteric lymph nodes. Pelvic: No enlarged pelvic lymph nodes. Ureters: Normal in course and caliber. No calcifications. Bladder: No wall thickening. Reproductive organs: No pelvic masses. Abdominal Wall: 3.2 cm midline supraumbilical anterior abdominal wall defect containing fat in colon. No associated fat stranding or bowel. Fat-containing 4 mm periumbilical anterior abdominal wall defect just caudal to it (series 4, image 44). No diastasis of rectus musculature. No edema or masses. Bones: No bone lesions. Views disc space narrowing L1-L2 through L4-L5, with small anterior osteophytes. 7 mm anterolisthesis L4 on L5. No post operative changes. All CT scans at this facility use dose modulation, iterative reconstruction, and/or weight based dosing when appropriate to reduce radiation dose to as low as reasonably achievable. Ordering Provider: Jesse Ott FINAL REPORT Dictated: 03/19/2024 11:53 am Gwyn Jordan MD Signed (Electronic Signature): 03/19/2024 11:53 am Signed by: Gwyn Jordan MD Transcribed by: YOMI Technologist: AO Technical Comments GFR (mL/min/1/73m2) >60 Contrast: Isovue 300 Contrast amount in ml's: 100 Rectal Contrast Given? No Oral contrast amount in ml's: 900 Normal [facility] CHEMISTRYOrdered By: SYSTEM SYSTEM on 03-14-2024 Creatinine [Mass/Vol] 0.9 mg/dL Normal 0.5 - 1.3 mg/dL Remisol Chem eGFR 70 mL/min/1.73 m2 Normal >=59mL/min /1.7 3 m2 Remisol Chem Creatinineon 03-14-2024 Creatinine [Mass/Vol] 0.9 mg/dL Normal 0.5-1.3 [facility] Comment on above: Performed By: #### 2 [id number] #### [facility] [address] [place] [address] eGFRon 03-14-2024 eGFR 70 mL/min/1.73 m2 Normal >=59 [facility] Comment on above: Performed By: #### 1 [id number] #### [facility] [address] [place] [address] Ambulatory Visit Summaryon 1 05-10-2023 Ambulatory Visit Summary Ambulatory Visit Summary MILLY FOSTER :1955 Visit Date:03/10/2024 Ambulatory Visit Instructions Your Diagnosis Encounter for initial annual wellness visit in Medicare patient Encounter for hepatitis C screening test for low risk patient Immunization declined Hypertension Advanced care planning/counseling discussion Ventral hernia Family history of diabetes mellitus Obesity due to excess calories Your Care Team Attending Physician - Helen Gay Primary Care Physician - Helen Gay This Is Your Medications List hydrochlorothiazide-i rbesartan (hydrochlorothiazide- irbesartan 12.5 mg-150 mg Tab) Procedures Performed Cataract surgery, Colonoscopy. Discharge Vitals Heart Rate (Peripheral) 71 Respiratory Rate 14 Blood Pressure 136/60 Height 161.5 cm Height 64 in Weight 91.5 kg Weight 201.3 lb BMI 35.08 What to do next Scheduled Follow-Up Appointments Sunday 11:00 AM EST With: Where: [facility] Sunday 8:20 AM EST With: Helen Gay Where: [address] [id number]- Sunday 8:00 AM EST With: Where: [address] [address]- You Need to Complete the Following HCV Antibody RFX to Quant PCR, Blood, Routine collect, 03/10/24, Order for future visit, Lab Collect, Encounter for hepatitis C screening test for low risk patient, Not Required, Print Label By Order Location Medications What How Much When Instructions Unchanged hydrochlorothiazide-i rbesartan (hydrochlorothiazide- irbesartan 12.5 mg-150 mg Tab) See instructions TAKE 1 TABLET DAILY Allergies penicillin (Rash) Problems Ongoing - Any problem that you are currently receiving treatment for. Abdominal hernia BMI 35.0-35.9,adult COVID-19 Hypertension Nonsmoker Right upper quadrant pain Screening for hyperlipidemia Ventral hernia Wellness examination Patient Survey You may receive a survey via text or e-mail asking about your office visit. Please share your experience with us by completing your survey. We appreciate your feedback and thank you for choosing us for your care. Education Materials Preventing Type 2 Diabetes Mellitus Type 2 diabetes, also called type 2 diabetes mellitus, is a long-term (chronic) disease that affects sugar (glucose) levels in your blood. Normally, a hormone called insulin allows glucose to enter cells in your body. The cells use glucose for energy. With type 2 diabetes, you will have one or both of these problems: ??? Your pancreas does not make enough insulin. ??? Cells in your body do not respond properly to insulin that your body makes (insulin resistance). Insulin resistance or lack of insulin causes extra glucose to build up in the blood instead of going into cells. As a result, high blood glucose (hyperglycemia) develops. That can cause many complications. Being overweight or obese and having an inactive (sedentary) lifestyle can increase your risk for diabetes. Type 2 diabetes can be delayed or prevented by making certain nutrition and lifestyle changes. How can this condition affect me? If you do not take steps to prevent diabetes, your blood glucose levels may keep increasing over time. Too much glucose in your blood for a long time can damage your blood vessels, heart, kidneys, nerves, and eyes. Type 2 diabetes can lead to chronic health problems and complications, such as: ??? Heart disease. ??? Stroke. ??? Blindness. ??? Kidney disease. ??? Depression. ??? Poor circulation in your feet and legs. In severe cases, a foot or leg may need to be surgically removed (amputated). What can increase my risk? You may be more likely to develop type 2 diabetes if you: ??? Have type 2 diabetes in your family. ??? Are overweight or obese. ??? Have a sedentary lifestyle. ??? Have insulin resistance or a history of prediabetes. ??? Have a history of -related (gestational) diabetes or polycystic ovary syndrome (PCOS). What actions can I take to prevent this? It can be difficult to recognize signs of type 2 diabetes. Taking action to prevent the disease before you develop symptoms is the best way to avoid possible damage to your body. Making certain nutrition and lifestyle changes may prevent or delay the disease and related health problems. Nutrition ??? Eat healthy meals and snacks regularly. Do not skip meals. Fruit or a handful of nuts is a healthy snack between meals. ??? Drink water throughout the day. Avoid drinks that contain added sugar, such as soda or sweetened tea. Drink enough fluid to keep your urine pale yellow. ??? Follow instructions from your health care provider about eating or drinking restricti (more content not included)... Normal [facility] Family Medicine Office/Clini c Noteon 03-10-2024 Family Medicine Office/Clinic Note Family Medicine Office/Clinic Note Chief Complaint Initial Medicare Wellness Review of Systems PHQ Score Initial Depression Screen Score: 0 SCORE Physical Exam Vitals & Measurements HR: 71(Peripheral) RR: 14 BP: 136/60 SpO2: 97% HT: 161.5 cm HT: 64 in WT: 91.5 kg WT: 201.3 lb BMI: 35.08 Assessment/Plan 1. Encounter for initial annual wellness visit in Medicare patient (Z00.00: Encounter for general adult medical examination without abnormal findings) The patient was given a customized and personalized print out of all the current AHRQ USPSTF???s recommendations for preventative services and all current CDC recommended immunizations, relevant risk recommendations and the following patient brochures were given. Reviewed Medicare Prevention Services checklist. CDC-Falls Prevention and home safety screening reviewed. Patient denies any falls in last 12 months, voices no worry about falling. Exhibits no problems with sitting, standing or ambulation. Patient aware with keeping walk way area free of clutter to prevent tripping and/or falling. [place] Advance Directives reviewed. Documents provided to patient to take home. see # 5. Patient denies any problems with ADL???s and Instrumental ADL???s. Cognitive screening completed with memory and clock face drawing. No deficits noted. Patient recited 3/3 memory words. Immunization record reviewed, discussed Shingrix vaccine with educational handout and availability. No COVID vaccines have been administered. Allergies and medications reviewed and up to date. No concerns with taking medication as prescribed. Reviewed OTC medications, medication list up to date. Blood tests were reviewed: Discussed what tests need to be updated. Labs were previously ordered by pcp, she has not had them completed yet. Patient will have completed prior to next PCP visit. [place] [facility] No concerns with bowel/ bladder. Colonoscopy last completed 09/29/2015. Reviewed pain symptoms: Patient denies pain. Reviewed all outside providers that patient follows. Last visit summary notes available in chart and/or have been requested. Patient declines any signs or symptoms of depression at this time. 8 minutes spent with screening and documentation. PHQ2 screening score 0. Patient drinks alcohol 2-3 or more times weekly 1-2 drinks, denies concerns. 8 minutes spent with screening and documentation. Audit score 3. Follow up scheduled with PCP, 07/09/2024 AWV has been scheduled, 03/16/2025 Medicare provides yearly screening for alcohol and depression concerns. This is completed during our Medicare wellness visit for those who do not have a current diagnosis of depression or concerns with alcohol use. I spent a total of 17 minutes on this date of service which included preparing to see the patient, face to face patient care, completing clinical documentation, obtaining and/or reviewing separately obtained history, counseling and educating the patient with handouts. Explanations were provided with reviewing questionnaires. AUDIT risk assessment screening completed, risk score 3 with patient denying concerns with use. Completed PHQ-2 risk assessment for depression with risk score 0, negative findings. Patient has been reminded to notify the provider if there would be a change or concerns with symptoms with fear, unable to sleep, worrying too much or feeling down and/or sad with lost of interest with daily activities. Will continue to monitor with screening yearly during Medicare wellness visits. 2. Encounter for hepatitis C screening test for low risk patient (Z11.59: Encounter for screening for other viral diseases) Discussed with patient the risk of Hepatitis C for people born between 4973-2309. Handout CDC-Hepatitis C given. Patient to have labs drawn for Hepatitis C screening based on year of . Test ordered and printed as patient requested labs done at [facility]. 3. Immunization declined (Z28.21: Immunization not carried out because of patient refusal) CDC recommendations were reviewed with the patient during today's Medicare wellness visit. Patient is due for a HIGH dose flu vaccine, patient does decline to have. Reviewed educational handout with vaccine information and What you need to know was reviewed, patient reminded with the benefits of influenza vaccination, especially now during COVID-19. Patient does voice understanding, encouraged to discuss with PCP. 4. Hypertension (I10: Essential (primary) hypertension) Patient is taking hctz- irbestartan daily as directed. Does monitor BP pressure at home. HTN stoplight reviewed with BP goal to be <140/90. Reviewed different factors that can alter blood pressure readings. Education handout provided with s/s to monitor for and report to provider. Patient is encouraged to increase portions of fruit, vegetables, fiber and increase exercise as much as tolerable. Reviewed importance with monitoring foods high in salt content and encouraged to limit intake, if unsure encouraged to (more content not included)... Normal [facility] Comment on above: Result Comment: Elec tronically Signed By: Helen Gay\.br\Date and Time Signed: 03/10/24 12:59 EST\.br\Electronically Co-Signed By: Mariola Elias\.br\Date and Time Co-Signed: 03/10/24 09:14 EST Ambulatory Visit Summaryon 0 01-28-2024 Ambulatory Visit Summary Ambulatory Visit Summary MILLY FOSTER :1955 Visit Date:01/28/2024 Ambulatory Visit Instructions Your Diagnosis Wellness examination Hypertension Screening for hyperlipidemia Abdominal hernia BMI 34.0-34.9,adult Obesity (BMI 30.0-34.9) Nonsmoker Your Care Team Attending Physician - Helen Gay Primary Care Physician - Helen Gay This Is Your Medications List hydrochlorothiazide-i rbesartan (hydrochlorothiazide- irbesartan 12.5 mg-150 mg Tab) Procedures Performed Cataract surgery, Colonoscopy. Discharge Vitals Temperature (Temporal Artery) 37.2 ?C Heart Rate (Peripheral) 66 Respiratory Rate 16 Blood Pressure 136/84 Height 163 cm Height 64 in Weight 90.7 kg Weight 199.54 lb BMI 34.14 What to do next Scheduled Follow-Up Appointments Sunday 9:30 AM EDT Where: [facility] [id number] [place] [address]- Medications What How Much When Instructions Unchanged hydrochlorothiazide-i rbesartan (hydrochlorothiazide- irbesartan 12.5 mg-150 mg Tab) See instructions TAKE 1 TABLET DAILY Allergies amoxicillin (Rash) penicillin (Rash) Problems Ongoing - Any problem that you are currently receiving treatment for. Abdominal hernia BMI 34.0-34.9,adult COVID-19 Hypertension Nonsmoker Obesity (BMI 30.0-34.9) Right upper quadrant pain Screening for hyperlipidemia Ventral hernia Wellness examination Patient Survey You may receive a survey via text or e-mail asking about your office visit. Please share your experience with us by completing your survey. We appreciate your feedback and thank you for choosing us for your care. [facility] Family Medicine Office/Clini c Noteon 01-28-2024 Family Medicine Office/Clinic Note Family Medicine Office/Clinic Note HPI Staff Milly is a 68 year old female presenting with yearly checkup & medication refills. Does nee refill of HCTZ/Irbesartan. Health Maintenance: Colonoscopy: 2017 Dexa: 04/19/22 Mammo: 04/23/23 Pap: Last Labs: 04/2022 States abdominal US was done last yr. She was not notified of results. Would like to obtain. Patient is here for follow up on hypertension. How often are you checking your blood pressure? Couple times a week What are your average readings? _120/80 Yearly BMP: _04/2022 History of Present Illness pt presents today for wellness visit. Review of Systems PHQ Score Initial Depression Screen Score: 0 SCORE Physical Exam Vitals & Measurements T: 37.2 ?C(Temporal Artery) HR: 66(Peripheral) RR: 16 BP: 136/84 SpO2: 98% HT: 64 in HT: 163 cm WT: 90.7 kg WT: 199.54 lb BMI: 34.14 General: alert, no acute distress ENMT: oral mucosa moist, no pharyngeal erythema or exudate Cardiovascular: regular rate and rhythm, normal peripheral perfusion Respiratory: Lungs CTA, respirations non labored Extremities: no deformity, no trauma Neurological: oriented x 4, LOC appropriate for age, CN II-XII intact, motor strength equal & normal bilaterally, speech normal Assessment/Plan 1. Wellness examination (Z00.00: Encounter for general adult medical examination without abnormal findings) pt presents today for annual exam. pt is doing well. has many questions about bladder surgery and hernia surgery. RTC for AMW visit Ordered: Est Preventative 65+ years 2. Hypertension (I10: Essential (primary) hypertension) BP at goal Ordered: Est Preventative 65+ years 3. Screening for hyperlipidemia (Z13.220: Encounter for screening for lipoid disorders) lipid panel order provided to be done at [facility] Ordered: Est Preventative 65+ years 4. Abdominal hernia (K46.9: Unspecified abdominal hernia without obstruction or gangrene) pt has a pretty large abdominal hernia about the size of a baseball. it is even visible through her shirt. will refer to General surgery. she would like to have her hysterectomy and bladder sling first. Ordered: Est Preventative 65+ years 5. BMI 34.0-34.9,adult (Z68.34: Body mass index [BMI] 34.0-34.9, adult) BMI education Ordered: Est Preventative 65+ years 6. Obesity (BMI 30.0-34.9) (E66.9: Obesity, unspecified) see above Ordered: Est Preventative 65+ years 7. Nonsmoker (Z78.9: Other specified health status) continue not smoking Ordered: Est Preventative 65+ years Follow-up No qualifying data available Problem List/Past Medical History Ongoing Abdominal hernia BMI 34.0-34.9,adult COVID-19 Hypertension Nonsmoker Obesity (BMI 30.0-34.9) Right upper quadrant pain Screening for hyperlipidemia Ventral hernia Wellness examination Historical No qualifying data Procedure/Surgical History Cataract surgery, Colonoscopy. Medications hydrochlorothiazide-i rbesartan 12.5 mg-150 mg Tab, See Instructions Allergies amoxicillin (Rash) penicillin (Rash) Social History Tobacco Never (less than 100 in lifetime) Tobacco Use:. Never Smokeless Tobacco Use:. Household tobacco concerns: No. Yes, 01/28/2024 Family History Alcoholism: Father. Diabetes mellitus type 2: Sister and Brother. Hypertension: Sister and Brother. Immunizations Vaccine Date Status influenza virus vaccine, inactivated 04/19/2022 Recorded influenza virus vaccine, inactivated 02/25/2020 Recorded influenza virus vaccine, inactivated 02/25/2019 Recorded influenza virus vaccine, inactivated 03/22/2018 Recorded hepatitis B adult vaccine 06/22/2000 Recorded Hep A, unspecified formulation 06/22/2000 Recorded hepatitis B adult vaccine 01/20/2000 Recorded Td(adult) unspecified formulation 12/15/1999 Recorded hepatitis B adult vaccine 12/15/1999 Recorded Hep A, unspecified formulation 12/15/1999 Recorded Normal [facility] Comment on above: Result Comment: Elec tronically Signed By: James YE, Helen Jacome\.br\Date and Time Signed: 01/28/24 09:45 EDT Outside Mammographyon 2022 Outside Mammography [id number] Normal [facility] CBC AUTO DIFFon 04-19-2022 BASO # 0.1 103/ul Normal 0.0-0.1 [facility] Comment on above: Performed By: #### D ATCBC #### [facility] [address] [address] [address] Tod Coleman Basophils/100 WBC (Bld) 1.8 % Normal 0.2-2.0 [facility] Comment on above: Performed By: #### D ATCBC #### [facility] [address] [address] [address] Tod Coleman EO # 0.4 103/ul Normal 0.0-0.7 [facility] Comment on above: Performed By: #### D ATCBC #### [facility] [address] [address] [address] Tod Coleman Eosinophils/100 WBC (Bld) 5.5 % Normal 0.9-7.0 [facility] Comment on above: Performed By: #### D ATCBC #### [facility] [address] [address] [address] Tod Coleman Erythrocyte distribution width (RBC) [Ratio] 12.3 % Normal 11.0-15.0 [facility] Comment on above: Performed By: #### D ATCBC #### [facility] [address] [address] [address] Tod Coleman Hematocrit (Bld) [Volume fraction] 39.1 % Normal 36.0-48.0 [facility] Comment on above: Performed By: #### D ATCBC #### [facility] [address] [address] [address] Tod Coleman Hemoglobin (Bld) [Mass/Vol] 13.3 g/dL Normal 12.0-16.0 [facility] Comment on above: Performed By: #### D ATCBC #### [facility] [address] [address] [address] Tod Coleman IG # 0.02 10e3/ul Normal 0.00-0.03 [facility] Comment on above: Performed By: #### D ATCBC #### [facility] [address] [address] [address] Tod Coleman IG % 0.3 % Normal 0.0-0.5 [facility] Comment on above: Performed By: #### D ATCBC #### [facility] [address] [address] [address] Tod Coleman LYMPH # 1.8 103/ul Normal 1.2-3.8 [facility] Comment on above: Performed By: #### D ATCBC #### [facility] [address] [address] [address] Tod Coleman Lymphocytes/100 WBC (Bld) 22.5 % Normal 20.5-60.0 [facility] Comment on above: Performed By: #### D ATCBC #### [facility] [address] [address] [address] Tod Coleman MCH (RBC) [Entitic mass] 30.0 pg Normal 26.7-34.0 [facility] Comment on above: Performed By: #### D ATCBC #### [facility] [address] [address] [address] Tod Coleman MCHC (RBC) [Mass/Vol] 34.0 g/dL Normal 29.9-35.2 [facility] Comment on above: Performed By: #### D ATCBC #### [facility] [address] [address] [address] Tod Coleman MCV (RBC) [Entitic vol] 88.1 fL Normal 81.0-99.0 [facility] Comment on above: Performed By: #### D ATCBC #### [facility] [address] [place] [address] Dr. Tod Coleman MONO # 0.5 103/ul Normal 0.3-0.8 [facility] Comment on above: Performed By: #### D ATCBC #### [facility] [address] [place] [address] Dr. Tod Coleman Monocytes/100 WBC (Bld) 6.2 % Normal 1.7-12.0 [facility] Comment on above: Performed By: #### D ATCBC #### [facility] [address] [place] [address] Dr. Tod Coleman NEUT # 5.0 103/ul Normal 1.4-6.5 [facility] Comment on above: Performed By: #### D ATCBC #### [facility] [address] [place] [address] Dr. Tod Coleman Neutrophils/100 WBC (Bld) 63.7 % Normal 43.0-75.0 [facility] Comment on above: Performed By: #### D ATCBC #### [facility] [address] [place] [address] Dr. Tod Coleman Platelet mean volume (Bld) [Entitic vol] 9.2 fL Critically low 9.5-13.5 [facility] Comment on above: Performed By: #### D ATCBC #### [facility] [address] [place] [address] Dr. Tod Coleman PLT 312 103/ul Normal 150-450 [facility] Comment on above: Performed By: #### D ATCBC #### [facility] [address] [place] [address] Dr. Tod Coleman RBC 4.44 106/ul Normal 4.20-5.40 [facility] Comment on above: Performed By: #### D ATCBC #### [facility] [address] [place] [address] Dr. Tod Coleman WBC 7.9 103/ul Normal 4.0-11.0 [facility] Comment on above: Performed By: #### D ATCBC #### [facility] [address] [address] [address] Tod Coleman ARIN- BMP WITH LIPIDon 2021 Anion gap [Moles/Vol] 13.0 mmol/L Normal [facility] Comment on above: Performed By: #### D ATBMP #### [facility] [address] [address] [address] Tod Coleman Calcium [Mass/Vol] 9.4 mg/dL Normal 8.5-10.1 [facility] Comment on above: Performed By: #### D ATBMP #### [facility] [address] [address] [address] Tod Coleman Chloride [Moles/Vol] 101 mmol/L Normal 98-107 [facility] Comment on above: Performed By: #### D ATBMP #### [facility] [address] [address] [address] Tod Coleman Cholesterol [Mass/Vol] 270 mg/dL Critically high <=200 [facility] Comment on above: Performed By: #### D ATBMP #### [facility] [address] [address] [address] Tod Coleman Cholesterol in HDL [Mass/Vol] 73 mg/dL Critically high 40-60 [facility] Comment on above: Performed By: #### D ATBMP #### [facility] [address] [address] [address] Tod Coleman Cholesterol in LDL [Mass/Vol] 176.8 mg/dL Normal [facility] Comment on above: Performed By: #### D ATBMP #### [facility] [address] [address] [address] Tod Coleman CO2 [Moles/Vol] 31.4 mmol/L Normal 21.0-32.0 [facility] Comment on above: Performed By: #### D ATBMP #### [facility] [address] [address] [address] Tod Coleman Creatinine [Mass/Vol] 0.78 mg/dL Normal 0.55-1.02 [facility] Comment on above: Performed By: #### D ATBMP #### [facility] [address] [address] [address] Tod Coleman EGFR-AF FILIPINO >60 Normal >=60 [facility] Comment on above: Performed By: #### D ATBMP #### [facility] [address] [address] [address] Tod Coleman EGFR-NON AF FILIPINO >60 Normal >=60 [facility] Comment on above: Performed By: #### D ATBMP #### [facility] [address] [address] [address] Tod Coleman Glucose [Mass/Vol] 99 mg/dL Normal 74-106 [facility] Comment on above: Performed By: #### D ATBMP #### [facility] [address] [address] [address] Tod Coleman HDL NORMAL > or = 60 mg/dl - LO W CARDIOVASCULAR RISK <40 mg/dl - HIGH CARDIOVASCULAR RISK Normal [facility] Comment on above: Performed By: #### D ATBMP #### [facility] [address] [address] [address] Tod Coleman LDL CALC NORMAL SEE BELOW Normal [facility] Comment on above: Result Comment: <100 mg/dl OPTIMAL 100 - 129 mg/dl NEAR OR ABOVE OPTIMAL 130 - 159 mg/dl BORDERLINE HIGH 160 - 189 mg/dl HIGH >190 mg/dl VERY HIGH Performed By: #### D ATBMP #### [facility] [address] [address] [address] Tod Coleman Potassium [Moles/Vol] 3.4 mmol/L Critically low 3.5-5.1 [facility] Comment on above: Performed By: #### D ATBMP #### [facility] [address] [address] [address] Tod Coleman Sodium [Moles/Vol] 142 mmol/L Normal 136-145 [facility] Comment on above: Performed By: #### D ATBMP #### [facility] [address] [address] [address] Tod Coleman Triglyceride [Mass/Vol] 101 mg/dL Normal <=150 [facility] Comment on above: Performed By: #### D ATBMP #### [facility] [address] [address] [address] Tdo Coleman Urea nitrogen [Mass/Vol] 19.0 mg/dL Critically high 7.0-18.0 [facility] Comment on above: Performed By: #### D ATBMP #### [facility] [address] [place] [address] Dr. Tod Coleman Urea nitrogen/Creatinine [Mass ratio] 24.4 mg/mg Normal [facility] Comment on above: Performed By: #### D ATBMP #### [facility] [address] [address] [address] Tod Coleman VLDL CALC 20.2 mg/dL Normal [facility] Comment on above: Performed By: #### D ATBMP #### [facility] [address] [address] [address] Tod Coleman MG MAMM SCREEN 3D LORENZO CADon 04-19-2022 MG MAMM SCREEN 3D LORENZO CAD Patient: MILLY FOSTER Exam Date: 04/19/2022 : 1955 Gender:F Ordering : DR. DARRYL SHAH D.O. Admission #: [id number] Family : Order #: [id number] CLICK HERE TO VIEW EXAM RADIOLOGY REPORT PROCEDURE: MAMMOGRAM SCREENING 3D BILATERAL CAD COMPARISON: MG MAMM SCREEN 3D LORENZO CAD, 04/06/2021. MG MAMM SCREEN LORENZO W CAD, 03/26/2020. INDICATIONS: Screening mammography Calculator Name NCI Breast Cancer Risk Assessment Tool 5 Year Breast Cancer Risk 1.20% Lifetime Breast Cancer Risk 4.70% Personal Breast Cancer No Personal Ovarian Cancer No Treatments None Family Cancers None LOCATION: [facility] BREAST COMPOSITION: Scattered areas fibroglandular density. FINDINGS: DIAGNOSTIC CATEGORY 2--BENIGN FINDING: RIGHT BREAST: No significant suspicious finding. Scattered benign-appearing lymph nodes are present. No significant change has occurred. LEFT BREAST: No significant suspicious finding. Scattered benign-appearing lymph nodes are present. No significant change has occurred. RECOMMENDATIONS: ROUTINE MAMMOGRAM AND CLINICAL EVALUATION IN 12 MONTHS. PLEASE NOTE: A NORMAL MAMMOGRAM DOES NOT EXCLUDE THE POSSIBILITY OF BREAST CANCER. A CLINICALLY SUSPICIOUS PALPABLE LUMP SHOULD BE BIOPSIED. Dictated by: Ken Lopez M.D. on 04/19/2022 at 14:38 Approved by: Ken Lopez M.D. on 04/19/2022 at 14:49 Normal [facility] XR DEXA BONE DENSITYon 04-19 XR DEXA BONE DENSITY EXAMINATION: XR DEX A BONE DENSITY, 04/19/2022 7:31 AM EST HISTORY: Menopause present COMPARISON: DEXA bone densitometry 03/26/2017 TECHNIQUE: Dual-energy X-ray absorptiometry (DEXA) bone density study performed for the axial skeleton. FINDINGS: SPINE ANALYSIS: Average bone mineral density is 1.490 g/cm2. T-score (standard deviation relative to young adult mean): 2.6 . +5.9% change since prior study. HIP ANALYSIS: Lowest bone mineral density is within the right femoral neck, 0.880 g/cm2. T-score (standard deviation relative to young adult mean): -1.1 . -3.5% change since prior study. IMPRESSION: [employer] Classification: Osteopenia - Moderate Fracture Risk Electronically authenticated by: KEN LOPEZ Date: 2022-04-19 08:59 Normal [facility] Vital Signs Date Time Vital Sign Value Performing Clinician Faci opal 04-01-2024 14:37-0500 Diastolic blood pressure 102 mm[Hg] Jesse ZuletaQosmos [facility] 04-01-2024 14:37-0500 Heart rate 66 /min Jesse Ott [facility] 04-01-2024 14:37-0500 Mean blood pressure 128 mm[Hg] Jesse MostLikelytaviaQosmos [facility] 04-01-2024 14:37-0500 Systolic blood pressure 178 mm[Hg] Jesse ZuletaQosmos [facility] 04-01-2024 14:36-0500 Heart rate 76 /min Jesse Mourany [facility] 04-01-2024 14:36-0500 SaO2% (BldA) [Mass fraction] 99 % Jesse Mourany [facility] 04-01-2024 14:36-0500 Body temperature 97.88 [degF] Jesse Mourany [facility] 04-01-2024 14:35-0500 Blood Pressure Location Jesse Mourany [facility] 04-01-2024 14:35-0500 Diastolic blood pressure 102 mm[Hg] Jesse Mourany [facility] 04-01-2024 14:35-0500 Mean blood pressure 126 mm[Hg] Jesse Mourany [facility] 04-01-2024 14:35-0500 Systolic blood pressure 175 mm[Hg] Jesse Mourany [facility] 04-01-2024 14:34-0500 Respiratory rate 16 /min Jesse Mourany [facility] 03-03-2024 14:08-0400 Blood Pressure Location Jesse Mourany [facility] 03-03-2024 14:08-0400 Diastolic blood pressure 92 mm[Hg] Jesse Mourany [facility] 03-03-2024 14:08-0400 Heart rate 76 /min Jesse Mourany [facility] 03-03-2024 14:08-0400 Respiratory rate 16 /min Jesse Mourany [facility] 03-03-2024 14:08-0400 Systolic blood pressure 193 mm[Hg] Jesse Mourany [facility] Encounters Encounter Date Encounter Type Care Provider Facility Start: 03-16-2025 ambulatory Helen L James Facility: [facility] Start: 07-09-2024 ambulatory Helen L Jmaes Facility: [facility] Start: 04-25-2024 ambulatory Jesse E. Merlyny Facilit y:[facility] Start: 04-16-2024 End: 04-16-2024 ambulatory Jesse E. Mourany [place] [place]: 04-01-2024 End: 04-01-2024 ambulatory Jesse E. Mourany [place] Start: 04-01-2024 End: 04-01-2024 Patient encounter procedure Jesse aMrte. Merlyny [facility] Start: 03-24-2024 End: 03-24-2024 ambulatory Jesse E. Mourany Facility:[facility] Start: 03-24-2024 End: 03-24-2024 Patient encounter procedure Jesse Marte. Motaviay [facility] Start: 03-18-2024 End: 03-18-2024 ambulatory Jesse Zuletay [place] Start: 03-18-2024 End: 03-18-2024 Patient encounter procedure Jesse Shin Motaviay [facility] Start: 03-14-2024 End: 03-14-2024 ambulatory Ambrose Vigil [place] Start: 03-14-2024 End: 03-14-2024 Patient encounter procedure Ambrose Vigil [facility] Start: 03-10-2024 End: 03-10-2024 ambulatory Helen L James Facility:[facility] Start: 03-03-2024 End: 03-03-2024 ambulatory Jesse E. Mourany Facility:[facility] Start: 03-03-2024 End: 03-03-2024 Patient encounter procedure Jesse Ott [facility] Start: 02-07-2024 ambulatory Helen James Facility:[facility] Start: 02-07-2024 ambulatory Helen James Facility:[facility] Start: 01-28-2024 End: 01-28-2024 ambulatory Helen L James Facility:[facility] Start: 10-09-2023 End: 10-09-2023 ambulatory VIRIDIANA COLBY Not Available Start: 05-02-2023 End: 05-02-2023 ambulatory DARRYL Eric SHAH Not Available Start: 04-19-2022 End: 04-20-[address] NONE LISTED REQUEST Facility: Procedures Date Procedure Procedure Detail Performing Clinician Cataract surgery Jesse love Colonoscopy Jesse Ott Comment on above: 2017 Immunizations Immunization Date Immunization Notes Care Provider Fa cili 04-19-2022 influenza virus vaccine, unspecified formulation Jesse Ott [facility] 02-25-2020 influenza virus vaccine, unspecified formulation Jesse Ott [facility] 02-25-2019 influenza virus vaccine, unspecified formulation Jesse Ott [facility] 03-22-2018 influenza virus vaccine, unspecified formulation Jesse Monitin [facility] 06-22-2000 Hep A, unspecified formulation Jesse Ott [facility] 06-22-2000 hepatitis B vaccine, adult dosage Jesse Ott [facility] 01-20-2000 hepatitis B vaccine, adult dosage Jesse Ott [facility] 12-15-1999 Hep A, unspecified formulation Jesse Pascalnitin [facility] 12-15-1999 hepatitis B vaccine, adult dosage Jesse Ott [facility] 12-15-1999 Td(adult) unspecifie d formulation Jesse Zuletaivan [facility] NEGATED: Highlighted row has not occurred!03-10-2024 influenza virus vaccine, unspecified formulation Ambrose Vigil [facility] Payers Date Payer Category Payer Unknown [id number] 2022 Medicare [id number] 2022 Private Health Insurance [id number] 1957 Self-pay [id number] 1959 Unknown [id number] 1955 Unknown [id number] 2.16.84 [id number] 1955 Unknown [id number] 2.16.84 [id number] 1955 Unknown [id number] 2.16.840 .[id number] 1955 Unknown [id number] 2.16.8 40.1.900965.3.579.2.727 1955 Unknown [id number] 2.16.8 40.1.695366.3.579.2.727 1955 Unknown [id number] 2.16.8 40.1.840125.3.579.2.727 1955 Unknown [id number] 2.16.8 40.1.726217.3.579.2.727 1955 Unknown [id number] 2.16.8 40.1.105600.3.579.2.727 1955 Unknown [id number] 2.16.8 40.1.636233.3.579.2.727 1955 Unknown [id number] 2.16.8 40.1.203931.3.579.2.727 1955 Unknown [id number] 2.16.8 40.1.755526.3.579.2.727 1955 Unknown [id number] 2.16.8 40.1.888341.3.579.2.727 1955 Unknown [id number] 2.16.8 40.1.265120.3.579.2.727 1955 Unknown [id number] 2.16.8 40.1.427610.3.579.2.727 Unknown [id number] 2.16.84 0.1.127825.3.579.2.593 Unknown [id number] 2.16.84 [id number] Social History Date Type Detail Facility Start: 03-03-2024 End: 03-24-2024 Tobacco smoking status Never smoked tobacco (finding) [facility] Comment on above: denies use. Tobacco smoking status Never [facility] Sex Assigned At Female [facility] Functional Status Date Assessment Result Facility 04-01-2024 Functional Status No [facility] 03-03-2024 Functional Status N/A 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 Optimetrix number: Optimetrix number [id number]. Anesthetic utilized: General. Health Status Allergies: Allergic Reactions (Selected) Severity Not Documented Penicillin- Rash. Physical Examination Vital Signs 04/16/2024 13:07 EST Heart Rate Monitored 72 bpm Respiratory Rate Monitored 18 br/min Systolic Blood Pressure 145 mmHg HI Diastolic Blood Pressure 82 mmHg SpO2 95 % Pain Assessment: Controlled. General: Awake, Appropriate. Respiratory: Adequate air exchange. Cardiovascular: Stable. Neurological Assessment Anesthetic outcome No anesthetic complications noted. Adequate pain relief. Review / Management Condition: Stable. Plan Transfer/Discharge: Transfer/Discharge Discharge when meets criteria ( To home ). [facility] Comment on above: Result Comment: Elec tronically Signed By: Nick LIAO, Elliot De Santiago\.br\Date and Time Signed: 04/16/24 13:41 EST 04-16-2024 Note Patient Education - Text Gastroenterology Laparoscopic Ventral Hernia Repair, Care After The following information offers guidance on how to care for yourself after your procedure. Your health care provider may also give you more specific instructions. If you have problems or questions, contact your health care provider. What can I expect after the procedure? After the procedure, it is common to have pain, discomfort, or soreness. Follow these instructions at home: Medicines ??? Take locq-kbo-yxwpbxj and prescription medicines only as told by your health care provider. ??? Ask your health care provider if the medicine prescribed to you: ? Requires you to avoid driving or using machinery. ? Can cause constipation. You may need to take these actions to prevent or treat constipation: ? Drink enough fluid to keep your urine pale yellow. ? Take rwar-yos-yjbsmoj or prescription medicines. ? Eat foods that are high in fiber, such as beans, whole grains, and fresh fruits and vegetables. ? Limit foods that are high in fat and processed sugars, such as fried or sweet foods. Incision care ??? Follow instructions from your health care provider about how to take care of your incisions. Make sure you: ? Wash your hands with soap and water for at least 20 seconds before and after you change your bandage (dressing) or before you touch your abdomen. If soap and water are not available, use hand field test engineer. ? Change your dressing as told by your health care provider. ? Leave stitches (sutures), skin glue, or adhesive strips in place. These skin closures may need to stay in place for 2 weeks or longer. If adhesive strip edges start to loosen and curl up, you may trim the loose edges. Do not remove adhesive strips completely unless your health care provider tells you to do that. ??? Check your incision areas every day for signs of infection. Check for: ? More redness, swelling, or pain. ? Fluid or blood. ? Warmth. ? Pus or a bad smell. Bathing ??? Do not take baths, swim, or use a hot tub until your health care provider approves. Ask your health care provider if you may take showers. You may only be allowed to take sponge baths. ??? Keep your dressing dry until your health care provider says it can be removed. Activity ??? Rest as told by your health care provider. ??? Avoid sitting for a long time without moving. Get up to take short walks every 1?2 hours. This is important to improve blood flow and breathing. Ask for help if you feel weak or unsteady. ??? Do not lift anything that is heavier than 10 lb (4.5 kg), or the limit that you are told, until your health care provider says that it is safe. ??? If you were given a sedative during the procedure, it can affect you for several hours. Do not drive or operate machinery until your health care provider says that it is safe. ??? Return to your normal activities as told by your health care provider. Ask your health care provider what activities are safe for you. General instructions ??? Hold a pillow over your abdomen when you cough or sneeze. This helps with pain. ??? Do not use any products that contain nicotine or tobacco. These products include cigarettes, chewing tobacco, and vaping devices, such as e-cigarettes. These can delay healing after surgery. If you need help quitting, ask your health care provider. ??? You may be asked to continue to do deep breathing exercises at home. This will help to prevent a lung infection. ??? Keep all follow-up visits. This is important. Contact a health care provider if: ??? You have any of these signs of infection: ? More redness, swelling, or pain around an incision. ? Fluid or blood coming from an incision. ? Warmth coming from an incision. ? Pus or a bad smell coming from an incision. ? A fever or chills. ??? You have pain that gets worse or does not get better with medicine. ??? You have nausea or vomiting. ??? You have a cough. ??? You have shortness of breath. ??? You have not had a bowel movement in 3 days. ??? You are not able to urinate. Get help right away if you have: ??? Severe pain in your abdomen. ??? Persistent nausea and vomiting. ??? Redness, warmth, or pain in your leg. ??? Chest pain. ??? Trouble breathing. These symptoms may represent a serious problem that is an emergency. Do not wait to see if the symptoms will go away. Get medical help right away. Call your local emergency services (911 in the [place] Do not drive yourself to the hospital. Summary ??? After this procedure, it is common to have pain, discomfort, or soreness. ??? Follow instructions from your health care provider about how to take care of your incision. ??? Check your incision area every day for signs of (more content not included)... [facility] 04-16-2024 Note H&P Update History and Physical Update H&P Reviewed. Patient seen and examined, appropriate for planned surgery, robotic umbilical hernia repair with mesh Problem List/Past Medical History Ongoing Abdominal hernia BMI 35.0-35.9,adult COVID-19 Hypertension Nonsmoker Right upper quadrant pain Screening for hyperlipidemia Ventral hernia Wellness examination Historical No qualifying data Procedure/Surgical History Cataract surgery, Colonoscopy. Medications clindamycin additive + Premix Dextrose 5% Diluent 50 mL hydrochlorothiazide-irbesartan 12.5 mg-150 mg Tab, See Instructions HYDROmorphone 1 mg/mL injectable solution, 0.4 mg= 0.4 mL, IV Push, q4min, PRN Lactated Ringers IV Ariana 1000 mL 1,000 mL, 1000 mL, IV Multivitamins and Minerals, Oral, Daily promethazine additive 12.5 mg + Sodium Chloride 0.9% IV Ariana 50 mL (INT) 50 mL Sodium Chloride 0.9% IV Ariana 1000 mL 1,000 mL, 1000 mL, IV Vitamin C 500 mg Tab, 500 mg= 1 tab(s), Oral, Daily Vitamin D3 1000 intl units (25 mcg) Tab, 25 mcg= 1 tab(s), Oral, Daily Allergies penicillin (Rash) Social History Alcohol - Denies Alcohol Use, 03/03/2024 Current, Beer, Wine, 1-2 times per week, Previous treatment: None. Alcohol use interferes with work or home: No. Drinks more than intended: No. Others hurt by drinking: No. Ready to change: No. Household alcohol concerns: No., 03/10/2024 Substance Abuse - Denies Substance Abuse, 03/03/2024 Never, 03/10/2024 Tobacco - Denies Tobacco Use, 03/10/2024 Never (less than 100 in lifetime) Tobacco Use:., 03/24/2024 Family History Alcoholism: Father. Diabetes mellitus type 2: Sister and Brother. Hypertension: Sister and Brother. 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 Anesthesia history: Patient history: None. Family history+: None. Informed consent: Signed by patient. Re-evaluation prior to induction: Initial evaluation reviewed: No significant change. Review of Systems Eye Ear/Nose/Mouth/Throat Respiratory: No shortness of breath, No cough. Cardiovascular: Negative. Gastrointestinal: No heartburn. Musculoskeletal Neurologic Health Status Allergies: Allergic Reactions (Selected) Severity Not Documented Penicillin- Rash., Allergies (1) Active Severity Reaction penicillin Rash Current medications: (Selected) Inpatient Medications Ordered HYDROmorphone 1 mg/mL injectable solution: 0.4 mg = 0.4 mL, Injection, IV Push, q4min PRN Pain for 5 dose(s), Stop date Limited # of times, Routine, Start date 04/16/24 8:38:00 EST, 04/16/24 8:38:00 EST Lactated Ringers IV Ariana 1000 mL 1,000 mL: 1,000 mL, IV, 100 mL/hr, Routine, Start date 04/16/24 8:38:00 EST, 10 hour(s), Total volume (mL): 1,000, 91.7 kg, 2.04, m2 Sodium Chloride 0.9% IV Ariana 1000 mL 1,000 mL: 1,000 mL, IV, 150 mL/hr, Routine, Start date 04/16/24 8:00:00 EST, 6.7 hour(s), Total volume (mL): 1,000, 91.7 kg, 2.04, m2 clindamycin additive + Premix Dextrose 5% Diluent 50 mL: 900 mg = 50 mL, Soln-IV, IV Piggyback, PREOP, Routine, Start date 04/16/24 8:00:00 EST, 100 mL/hr, Infuse over 30 minute(s) promethazine additive 12.5 mg + Sodium Chloride 0.9% IV Ariana 50 mL (INT) 50 mL: IV Piggyback, Once PRN Nausea/Vomiting, Routine, Start date 04/16/24 8:38:00 EST, 151.5 mL/hr, Infuse over 20 minute(s), 04/16/24 8:38:00 EST Prescriptions Prescribed hydrochlorothiazide-irbesartan 12.5 mg-150 mg Tab: See Instructions, 90 tab(s), Refill(s) 0, TAKE 1 TABLET DAILY, [facility], 162.6, cm, 04/02/24 7:11:00 EST, Height/Length Dosing, 91.7, kg, 04/02/24 7:11:00 EST, Weight Dosing Documented Medications Documented Multivitamins and Minerals: Oral, Daily Vitamin C 500 mg Tab: 500 mg = 1 tab(s), Oral, Daily Vitamin D3 1000 intl units (25 mcg) Tab: 25 mcg = 1 tab(s), Oral, Daily, Home Medications (4) Active hydrochlorothiazide-irbesartan 12.5 mg-150 mg Tab See Instructions Multivitamins and Minerals , Oral, Daily Vitamin C 500 mg Tab 500 mg = 1 tab(s), Oral, Daily Vitamin D3 1000 intl units (25 mcg) Tab 25 mcg = 1 tab(s), Oral, Daily , Medications (5) Active Scheduled: (1) clindamycin 900 mg/50 mL-D5W + Dextrose 5% Premix Diluent 50 mL 900 mg 50 mL, IV Piggyback, PREOP Continuous: (2) Lactated Ringers 1,000 mL 1,000 mL, IV, 100 mL/hr Sodium Chloride 0.9% 1,000 mL 1,000 mL, IV, 150 mL/hr PRN: (2) HYDROmorphone 1 mg/mL SOLN [F] 0.4 mg 0.4 mL, IV Push, q4min promethazine 12.5 mg + Sodium Chloride 0.9% 50 mL 12.5 mg 0.5 mL, IV Piggyback, Once Problem list: All Problems Abdominal hernia / SNOMED CT 62524202 / Confirmed BMI 35.0-35.9,adult / SNOMED CT 223495425 / Confirmed COVID-19 / SNOMED CT 5661712365 / Confirmed 04/27 Hypertension / SNOMED CT 4355997964 / Confirmed Nonsmoker / SNOMED CT 16798695 / Confirmed Right upper quadrant pain / SNOMED CT 200254653 / Confirmed Screening for hyperlipidemia / SNOMED CT 447309929 / Confirmed Ventral hernia / SNOMED CT 0255570499 / Confirmed Wellness examination / SNOMED CT 402586110 / Confirmed Canceled: BMI 34.0-34.9,adult / SNOMED CT 473274310 Canceled: Obesity (BMI 30.0-34.9) / SNOMED CT 182154129551291, Active Problems (9) Abdominal hernia BMI 35.0-35.9,adult COVID-19 Hypertension Nonsmoker Right upper quadrant pain Screening for hyperlipidemia Ventral hernia Wellness examination Histories Past Medical History: No active or resolved past medical history items have been selected or recorded. Family History: Hypertension Brother Sister Diabetes mellitus type 2 Sister Brother Alcoholism Father Procedure history: Colonoscopy ([id number]). Comments: 08/14/2022 13:52 [facility] - Anu Bruno LPN 2017 Cataract surgery ([id number]). Social History Social & Psychosocial Habits Alcohol 04/01/2024 Risk Assessment: Denies Alcohol Use Comment: Patient drinks alcohol 2-3 times a week, 1-2 drinks. - 03/10/2024 08:09 - Mariola Elias; denies use. - 03/10/2024 08:10 - Mariola Elias 04/01/2024 Use: Current Type: Beer, Wine Frequency: 1-2 times per week Previous treatment: None Has alcohol use interfered with work or home life? No Do you ever drink more than intended? No Has anyone been hurt or at risk by your drinking? No Ready to change: No Concerns about alcohol use in household: No Substance Abuse 04/01/2024 Risk Assessment: Denies Substance Abuse 04/01/2024 Use: Never Tobacco 04/01/2024 Risk A (more content not included)... [facility] Comment on above: Result Comment: Elec tronically Signed By: Nick LIAO, Elliot De Santiago\.br\Date and Time Signed: 04/16/24 08:39 EST 03-10-2024 Note Patient Education Emergency Medicine Heart Attack A heart attack occurs when blood and oxygen supply to the heart is cut off. A heart attack can cause damage to the heart that cannot be fixed. A heart attack is also called a myocardial infarction, or NE. If you think you are having a heart attack, do not wait to see if the symptoms will go away. Get medical help right away. What are the causes? This condition may be caused by: ??? A fatty substance (plaque) in the blood vessels (arteries). This can block the flow of blood to the heart. ??? A blood clot in the blood vessels that go to the heart. The blood clot blocks blood flow. ??? An abnormal heartbeat. ??? Some diseases, such as problems in red blood cells (anemia)orproblems in breathing (respiratory failure). ??? Tightening (spasm) of a blood vessel that cuts off blood to the heart. ??? A tear in a blood vessel of the heart. Other causes may include: ??? Using drugs such as cocaine or methamphetamine. ??? Low blood pressure. What increases the risk? Aging. The risk gets higher as you get older. ??? Having a personal or family history of chest pain, heart attack, stroke, or narrowing of the arteries in the legs, arms, head, or stomach (peripheral vascular disease). ??? Having taken chemotherapy or immune-suppressing medicines. ??? Being male. ??? Being overweight or obese. ??? Having any of these conditions: ? High blood pressure. ? High cholesterol. ? Diabetes. ??? Making lifestyle choices such as: ? Drinking too much alcohol. ? Not getting regular exercise. ? Smoking. What are the signs or symptoms? Chest pain. It may feel like: ? Crushing or squeezing. ? Tightness, pressure, fullness, or heaviness. ??? Pain in the arm, neck, jaw, back, or upper body. ??? Heartburn. ??? Upset stomach (indigestion). ??? Shortness of breath. ??? Feeling like you may vomit (nauseous). ??? Cold sweats. ??? Sudden light-headedness, dizziness, or passing out. ??? Feeling tired. How is this treated? A heart attack must be treated as soon as possible. Treatment may include: ??? Medicines to: ? Break up or dissolve blood clots. ? Thin your blood and help prevent blood clots. ? Treat blood pressure. ? Improve blood flow to the heart. ? Reduce pain. ? Reduce cholesterol. ??? Procedures to widen a blocked artery and keep it open. ??? Open heart surgery. ??? Making your heart strong again (cardiac rehabilitation) through exercise, education, and counseling. Follow these instructions at home: Medicines ??? Take romt-wfe-vgzcdvy and prescription medicines only as told by your doctor. ??? Do not take these medicines unless your doctor says it is okay: ? NSAIDs, such as ibuprofen, naproxen, or celecoxib. ? Any vitamins or supplements. ? Hormone replacement therapy that has estrogen with or without progestin. ??? If you are taking blood thinners: ? Talk with your doctor before taking any medicines that have aspirin or NSAIDs, such as ibuprofen. ? Take medicines exactly as told. Take them at the same time each day. ? Avoid doing things that could hurt or bruise you. Take action to prevent falls. ? Wear an alert bracelet or carry a card that shows you are taking blood thinners. Lifestyle ??? Do not smoke or use any products that contain nicotine or tobacco. If you need help quitting, ask your doctor. ??? Avoid secondhand smoke. ??? Exercise regularly. Ask your doctor about a cardiac rehab program. ??? Eat heart-healthy foods. Your doctor will tell you what foods to eat. ??? Stay at a healthy weight. ??? Learn ways to lower your stress level. ??? Do not use illegal drugs. Alcohol use ??? Do not drink alcohol if: ? Your doctor tells you not to drink. ? You are , may be , or are planning to become . ??? If you drink alcohol: ? Limit how much you have to: ? 0?1 drink a day for women. ? 0?2 drinks a day for men. ? Know how much alcohol is in your drink. In the [place] one drink equals one 12 oz bottle of beer (355 mL), one 5 oz glass of wine (148 mL), or one 1? oz glass of hard liquor (44 mL). General instructions ??? Work with your doctor to treat other problems you may have, such as diabetes or high blood pressure. ??? Get screened for depression. Get treatment if needed. ??? Keep your vaccines up to date. Get the flu shot (influenza vaccine) every year. ??? Keep all follow-up visits. Contact a doctor if: ??? You feel very sad. ??? You have trouble doing your daily activities. ??? You get light-headed or dizzy. Get help right away if: ??? You have sudden, unexplained discomfort in your chest, arms, back, neck, jaw, or upper body. ??? You have shortness of breath. ??? You have sudden sweating or clammy skin. ??? You feel like you may vomit or you vomit. ??? You fe (more content not included)... 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 female here for abdominal hernia Helen YE referring Patient presented to PCP with large abdominal hernia visible through her shirt, no previous abdominal surgeries US abdomen done 12/13/2022 (imaging requested) History of Present Illness 68-year-old female referred to us from [facility] for evaluation of an abdominal wall hernia noted on physical examination. Per review of her PCPs note the patient would like to complete the hysterectomy and bladder sling prior to undergoing her hernia repair. The patient is never tried recent hernia before it is not present for roughly 2 or 3 years she believes but has increased in size. She does state that it is uncomfortable when people push directly on it however. She denies any previous obstructive symptoms. She plans to see her LAB MANAGER for her hysterectomy consultation at the end of April just before leaving for vacation to [place] on May 07. She denies any previous abdominal surgery Review of Systems PHQ Score Initial Depression Screen Score: 0 SCORE Physical Exam Vitals & Measurements HR: 76(Peripheral) RR: 16 BP: 193/92 HT: 64 in HT: 163 cm WT: 90.9 kg WT: 199.98 lb BMI: 34.21 Reducible ventral hernia above the umbilicus roughly 3 cm defect with a fascial bridge and then a 1 cm defect hernia directly above it. There are no previous laparotomy scars or incisions in the patient's abdomen in the area of her hernia Assessment/Plan 1. Ventral hernia (K43.9: Ventral hernia without obstruction or gangrene) Will obtain CT scan of abdomen pelvis for anatomic delineation of ventral hernia because I believe I feel 2 fascial defects in close proximity making this a more complex hernia. Patient is minimally symptomatic at this time. From our standpoint she may proceed with her hysterectomy then her trip to [place] and undergo repair afterwards in the spring that is unless the CT scan shows that there is bowel in the hernia itself or she becomes symptomatic from the hernia or develop signs and symptoms of incarceration/strangulation. In which case we would proceed with a more expedient robotic repair. Ordered: CT Abdomen/Pelvis w/ Contrast E&M of New Patient Moderate 45-59 Min 39227 2. BMI 34.0-34.9,adult (Z68.34: Body mass index [BMI] 34.0-34.9, adult) Education provided Ordered: CT Abdomen/Pelvis w/ Contrast E&M of New Patient Moderate 45-59 Min 34049 3. Obesity (BMI 30.0-34.9) (E66.9: Obesity, unspecified) As above Ordered: CT Abdomen/Pelvis w/ Contrast E&M of New Patient Moderate 45-59 Min 28788 Portions of this record may have been created with voice recognition artificial intelligence software, specifically ChangePanda, Luminal and or Ebook Glue. Substitutions may have occurred due to the inherent limitations of voice recognition and artificial intelligence software. Follow-up No qualifying data available Problem List/Past Medical History Ongoing Abdominal hernia BMI 34.0-34.9,adult COVID-19 Hypertension Nonsmoker Obesity (BMI 30.0-34.9) Right upper quadrant pain Screening for hyperlipidemia Ventral hernia Wellness examination Historical No qualifying data Procedure/Surgical History Cataract surgery, Colonoscopy. Medications hydrochlorothiazide-irbesartan 12.5 mg-150 mg Tab, See Instructions Allergies penicillin (Rash) Social History Alcohol - Denies Alcohol Use, 03/03/2024 Substance Abuse - Denies Substance Abuse, 03/03/2024 Tobacco Never (less than 100 in lifetime) Tobacco Use:. Never Smokeless Tobacco Use:. Household tobacco concerns: No. Yes, 03/03/2024 Family History Alcoholism: Father. Diabetes mellitus type 2: Sister and Brother. Hypertension: Sister and Brother. Immunizations Vaccine Date Status influenza virus vaccine, inactivated 04/19/2022 Recorded influenza virus vaccine, inactivated 02/25/2020 Recorded influenza virus vaccine, inactivated 02/25/2019 Recorded influenza virus vaccine, inactivated 03/22/2018 Recorded hepatitis B adult vaccine 06/22/2000 Recorded Hep A, unspecified formulation 06/22/2000 Recorded hepatitis B adult vaccine 01/20/2000 Recorded Td(adult) unspecified formulation 12/15/1999 Recorded hepatitis B adult vaccine 12/15/1999 Recorded Hep A, unspecified formulation 12/15/1999 Recorded [facility] Comment on above: Result Comment: Elec tronically Signed By: Tru LIAO, Jesse Cheema\Date and Time Signed: 03/03/24 14:33 EDT Evaluation + Plan note Future Appointments Appointment Date:03/10/2024 08:00:00 AM Scheduled Provider: Location:[facility] Appointment Type: Medicare Wellness Subsequent Appointment Date:03/18/2024 11:00:00 AM Scheduled [facility] Type:CT Abdomen/Pelvis Combo (FT) Future Scheduled TestsCT Abdomen/Pelvis w/ Contrast 03/18/24 [facility] [place] Evaluation + Plan note Future Appointments Appointment Date:03/18/2024 11:00:00 AM Scheduled Provider: Location[facility] Appointment Type:CT Abdomen/Pelvis Combo (FT) Appointment Date:07/09/2024 08:20:00 AM Scheduled Provider:Helen Gay Location:[facility] Appointment Type: Open Appointment Date:03/16/2025 08:00:00 AM Scheduled Provider: [facility] App[facility] Type: Medicare Wellness Subsequent Future Scheduled TestsHCV Antibody RFX to Quant PCR 03/10/24CT Abdomen/Pelvis w/ Contrast 03/18/24 [facility] Evaluation + Plan note Future Appointments Appointment Date:07/09/2024 08:20:00 AM Scheduled Provider:Helen Gay [facility] App[facility] Type: Open Appointment Date:03/16/2025 08:00:00 AM Scheduled Provider: [facility] Appointment Type: Medicare Wellness Subsequent Future Scheduled TestsHCV Antibody RFX to Quant PCR 03/10/24 [facility] Evaluation + Plan note Future Appointments Appointment Date:04/16/2024 10:00:00 AM Scheduled Provider: Location:[facility] Appointment Type:Surgery FT Appointment Date:04/25/2024 11:40:00 AM Scheduled Provider:Jesse Ott MD Location:[facility] Appointment Type: Post Op 15 Appointment Date:07/09/2024 08:20:00 AM Scheduled Provider:Helen Gay [facility] Appointment Type: Open Appointment Date:03/16/2025 08:00:00 AM Scheduled Provider: [facility] Appointment Type:FM Medicare Wellness Subsequent Future Scheduled TestsHCV Antibody RFX to Quant PCR 03/10/24 [facility] Hospital course Narrative No data available for this section [facility] Discharge instructions No data available for this section [facility] Progress note No data available for this section [facility] Summary Purpose Family History No Family History Records FoundNo Family History Records Found No data available for this section No data available for this section No Family History Records FoundNo Family History Records Found No data available for this section No data available for this section No data available for this section No Family History Records FoundNo Family History Records FoundNo Family History Records FoundNo Family History Records FoundNo Family History Records FoundNo Family History Records Found Advance Directives No Advanced Directives Records FoundNo Advanced Directives Records FoundNo Advanced Directives Records FoundNo Advanced Directives Records FoundNo Advanced Directives Records FoundNo Advanced Directives Records FoundNo Advanced Directives Records FoundNo Advanced Directives Records FoundNo Advanced Directives Records FoundNo Advanced Directives Records Found Additional Source Comments INFORMATION SOURCE (unrecogn ized section and content) DATE CREATED AUTHOR 04/28/2022 [facility] DATE CREATED AUTHOR AUTHOR'S ORGANIZ ATION 10/10/2023 [facility] DATE CREATED AUTHOR AUTHOR'S ORGANIZ ATION 03/16/2024 [facility] DATE CREATED AUTHOR AUTHOR'S ORGANIZ ATION 04/04/2024 [facility] DATE CREATED AUTHOR AUTHOR'S ORGANIZ ATION 04/19/2024 [facility] DATE CREATED AUTHOR AUTHOR'S ORGANIZ ATION 04/21/2024 [facility] Patient Care team informatio n (unrecognized section and content) Personnel Name: Helen Gay Address: Address: [address] [place] [address]- Personnel Name: Helen Gay Address: Address: [address] [place] [address]- Personnel Name: Helen Gay Address: Address: [address] [place] [address]- Personnel Name: Helen Gay Address: Address: [address] [place] [address]- Personnel Name: Helen Gay Address: Address: [address] [place] [address]- FOR RECORDS PERTAINING TO PATIENTS WHO ARE OR HAVE BEEN ENROLLED IN A CHEMICAL DEPENDENCY/SUBSTANCEABUSE PROGRAM, SOME INFORMATION MAY BE OMITTED. This clinical summary was aggregated from multiple sources. Caution should be exercised in using it in the provision of clinical care. This summary normalizes information from multiple sources, and as a consequence, information in this document may materially change the coding, format and clinical context of patient data. In addition, data may be omitted in some cases. CLINICAL DECISIONS SHOULD BE BASED ON THE PRIMARY CLINICAL RECORDS. [facility] [employer] [facility]. provides no warranty or guarantee of the accuracy or completeness of information in this document.
[2024-04-25 07:35] LABS: Basophils Absolute Auto 0.1 10^3/uL (0.0-0.1); Basophils Percent Auto 1.1 % (0.2-2.0); Eosinophils Absolute Auto 0.2 10^3/uL (0.0-0.7); Eosinophils Percent Auto 1.4 % (0.9-7.0); Hematocrit 38.9 % (36.0-48.0); Hemoglobin 12.9 g/dL (12.0-16.0); Immature Granulocytes Abs Auto 0.06 10^3/uL (0.00-0.03); Immature Granulocytes Pct Auto 0.5 % (0.0-0.5); Lymphocytes Absolute Auto 1.4 10^3/uL (1.2-3.8); Lymphocytes Percent Auto 11.9 % (20.5-60.0); Mean Corpuscular HGB Conc 33.2 g/dL (29.9-35.2); Mean Corpuscular Hemoglobin 30.6 pg (26.7-34.0); Mean Corpuscular Volume 92.4 fL (81.0-99.0); Mean Platelet Volume 9.3 fL (9.5-13.5); Monocytes Percent Auto 8.8 % (1.7-12.0); Neutrophils Absolute Auto 8.9 10^3/uL (1.4-6.5); Neutrophils Percent Auto 76.3 % (43.0-75.0); Platelet Count 318 10^3/uL (150-450); Red Blood Count 4.21 10^6/uL (4.20-5.40); White Blood Count 11.7 10^3/uL (4.0-11.0)
[2024-04-25 09:07] LABS: Alanine Aminotransferase 26 U/L (14-59); Albumin Globulin Ratio 1.1; Albumin Level 3.9 g/dL (3.4-5.0); Alkaline Phosphatase 75 U/L (46-116); Anion Gap 12.5; Aspartate Amino Transferase 22 U/L (15-37); BUN Creatinine Ratio 15.2; Calcium 9.3 mg/dL (8.5-10.1); Carbon Dioxide 30.1 mmol/L (21.0-32.0); Chloride 102 mmol/L (98-107); Chol HDL Ratio 3.7; Cholesterol 292 mg/dL (<=200); Estimated GFR (African America >60 (>=60 mL/min/1.73m^2); Estimated GFR (Non-African Ame 52 (>=60 mL/min/1.73m^2); Globulin 3.4 g/dL; Glucose 106 mg/dL (74-106); HDL Cholesterol 80 mg/dL (40-60); Potassium 3.6 mmol/L (3.5-5.1); Sodium 141 mmol/L (136-145); Thyroid Stimulating Hormone 19.384 uIU/mL (0.358-3.740); Total Protein 7.3 g/dL (6.4-8.2); Triglycerides 76 mg/dL (<=150); VLDL CHOLESTEROL 15.2 mg/dL
[2024-04-26 06:08] LABS: HCV Ab Non Reactive (Non Reactive)
== END 2024-04-25 07:16 | disposition home or self-care (01) ==
LOC: LAB 07:15
PROVIDERS: PCP Nurse Practitioner; Visit Provider Nurse Practitioner
DX: Z00.00 Encounter for general adult medical examination without abnormal findings (principal); I95.9 Hypotension, unspecified
CPT/HCPCS: 36415; 80053; 80061; 84443; 85025; 86803

== ENCOUNTER 2024-04-25 07:29 | Outpatient (OUT) | payer MEDICARE, SELFPAY ==
--- OUTSIDE RECORDS SUMMARY | 2024-04-25 07:31 | XMS_ITS | CCD ---
Author Organization [facility] Care Team Providers Care Family Educator Name Role Phone REQUEST, NONE LISTED Consulting [...] Primary Care Physician Helen Ramirez Attending Unavailable JamseHelen Attending Unavailable JamesHelen Attending Unavailable JamesHelen hays [...] Ott Attending Unavailable Jesse Ott Admitting Unavailable Allergies Allergy Classification Reported Allergen(s) Allergy Type Date of Onset Reaction(s) Facility (5 sources) Amoxicillin; Translations: [amoxicillin] Drug Allergy [facility] Repository (8 sources) Penicillin; Translations: [penicillin] Drug Allergy Eruption of skin (disorder) [facility] (3 sources) No Known Medication Allergies; Translations: [No Known Medication Allergies] Propensity to adverse reactions (disorder) [facility] Repository Medications Current Medications Medication Drug Class(es) [...] tab(s), Refill(s) 0, TAKE 1 TABLET DAILY, [facility], 163, cm, 12/07/22 8:53:00 EDT, [...] Surgical Pathology Reporton 04-18-2024 Surgical Pathology Report [address] [address]- Surgical Pathology Report Collected Date/Time: 04/16/2024 11:59 [...] 4.5 cm. Cross-section reveals no discrete mass. Perishable Fruit Inspector section submitted in four cassettes. () [facility] Microscopic Description Microscopic examination performed unless gross only specified. Normal [facility] Comment on above: Performed By: #### 4 [id number] #### [facility] [address] [place] [address] Main OR Intraoperative Recor don 04-17-2024 Main OR Intraoperative Record Main OR Intraoperative Record IntraOp Document Type FT Summary Primary Physician: Jesse Ott MD Finalized Date/Time: 04/17/24 09:01:48 Pt. Name: MILLY FOSTER Nae CostaB./Sex: 1955 Female Med Rec #: [id number] Physician: Jesse Ott MD Financial #: [id number] Pt. Type: A Room/Bed: [place] [address] Admit/Disch: 04/16/24 07:44:47 - 04/16/24 15:00:00 Institution: [...] CST Role Performed Anesthesiologist Surgeon - Primary MANAGER HAIR/SA Dramatic Reader Time In 04/16/24 09:59:00 04/16/24 10:12:00 04/16/24 09:59:00 Time Out 04/16/24 12:27:00 04/16/24 12:06:00 04/16/24 12:27:00 Procedure HERNIA REPAIR, ROBOT HERNIA REPAIR, ROBOT HERNIA REPAIR, ROBOT ASSISTED(.) ASSISTED(.) ASSISTED(.) Comments Dr. Romero supervising, out for lunch at out for lunch [phone] - Dr. Romero covering lunch break. Last Modified By: Gary RN, Linda Vega RN, Linda Vega RN, Linda Marte 04/16/24 12:27:30 04/16/24 12:27:30 04/16/24 12:27:30 Entry 4 Entry 5 Entry 6 Case Attendee Enedelia Mckeon LPN RN, Linda Luong RN, Ann Goff Role Performed Scrub - Primary Account [employer] - Primary Staff - Other Time In 04/16/24 09:59:00 04/16/24 09:59:00 04/16/24 09:59:00 Time Out 04/16/24 12:27:00 04/16/24 12:27:00 04/16/24 10:15:00 Procedure HERNIA REPAIR, ROBOT HERNIA REPAIR, ROBOT HERNIA REPAIR, ROBOT ASSISTED(.) ASSISTED(.) ASSISTED(.) Comments out for lunch at out for lunch at room assist, In for [phone] luch relief at [phone] Last Modified By: Gary RN, Linda Vega RN, Linda Vega RN, Linda Marte 04/16/24 12:27:30 04/16/24 12:27:30 04/16/24 12:27:30 Entry 7 Case Attendee Nubia Collins CST Role Performed MANAGER HAIR/SA Time In 04/16/24 11:07:00 Time Out 04/16/24 11:52:00 Procedure HERNIA REPAIR, ROBOT ASSISTED(.) Comments lunch relief Last Modified By: Linda Vega RN 04/16/24 12:27:30 General Comments: Jeronimo Ramos rep also present for this case. ESPINOZA Pathakswage toolsetter Protocols FT Pre-Care Text: Implements protective measures [...] infection Skin (more content not included)... Normal [facility] Discharge Instructionson Discharge Instructions Discharge Instructions MILLY [...] AM EST With: Jesse Ott MD Where: [facility] [place] [address] [place] [address]- Sunday 8:20 AM EST With: Helen Gay Where: [address] [address]- Sunday 8:00 AM EST With: Where: [address] [address]- New Follow Up Appointments after Discharge Follow Up with Jesse Ott When: Comments: Appointment has already been scheduled Where: [address] [place] [address]- [phone] Business (1) Medications What How Much When Why Instructions Next Dose New acetaminophen-hydroco done ([place] 325 mg-5 mg oral tablet) 1 Tablets By Mouth Every 6 hours as needed for as needed for pain Ventral hernia Pickup at [facility]/pharmacy #[id number] Unchanged ascorbic acid (Vitamin C 500 mg Tab) 1 Tablets By Mouth Every day Unchanged cholecalciferol (Vitamin D3 1000 intl units (25 mcg) Tab) 1 Tablets By Mouth Every day Unchanged hydrochlorothiazide-i rbesartan (hydrochlorothiazide- irbesartan 12.5 mg-150 mg Tab) See instructions TAKE 1 TABLET DAILY Unchanged multivitamin with minerals (Multivitamins and Minerals) By Mouth Every day Pharmacy Information [facility]/pharmacy #[id number]: [address] [place], [place] [phone] Allergies penicillin (Rash) Devices Implanted/Removed This Visit [...] these instructions at home: Medicines ??? Take ymmz-bja-zqgvheu and prescription medicines only as told by your health care provider. ??? Ask your health care provider if the medicine prescribed to you: ? Requires you to avoid driving or using machinery. ? Can cause constipation. You may need to take these actions to prevent or treat constipation: ? Drink enough fluid to keep your urine pale yellow. ? Take zwju-jiv-kxustmx or prescription medicines. ? Eat foods that [...] and water are not available, use hand spaghetti press helper. ? Change your dressing as told by [...] your inci (more content not included)... Normal [facility] Comment on above: Result Comment: Elec tronically Signed By: Monika DORAN, Jyothi Child\.br\Date and Time Signed: 04/16/24 12:46 EST Inpatient Patient Summaryon 04-16-2024 Inpatient Patient Summary Inpatient Patient Summary [place] [id number] [facility] Clinical Discharge Instructions PERSON INFORMATION Name: MILLY FOSTER PHYSICIANS Admitting Physician: Jesse Ott MD Attending Physician: Jesse Ott MD PCP: Helen Gay Discharge Diagnosis: Comment: PATIENT EDUCATION INFORMATION Instructions: Laparoscopic Ventral Hernia Repair, Care After Medication Leaflets: Follow up: With: Address: When: Jesse Ott [address] [place] [id number] [phone] Business (1) Comments: Appointment has already been scheduled Type Location Start Finish [facility] Post Op [facility] 04/25/2024 11:40 AM 04/25/2024 12:00 PM Confirmed FM Open [facility] 07/09/2024 8:20 AM 07/09/2024 8:40 AM Confirmed FM Medicare Wellness Subsequent [facility] 03/16/2025 8:00 AM 03/16/2025 9:00 AM Confirmed MEDICATION LIST New Medications [id number], [address], [place] [phone], [phone] acetaminophen-hydroco done ([place] 325 mg-5 mg oral tablet) 1 Tablets [...] Minerals) By Mouth every day. Comment: Normal [facility] Main OR PACU I Recordon 04-06 Main OR PACU I Record Main OR PACU I Rec ord PACU Phase I Document Type FT Summary Primary Physician: Jesse Ott MD Finalized Date/Time: 04/16/24 13:09:19 Pt. Name: CRISTIAN MILLYMAGDA Nelson/Sex: 1955 Female Med Rec #: [id number] Physician: Jesse Ott MD Financial #: [id number] Pt. Type: A Room/Bed: [place] [address] Admit/Disch: 04/16/24 07:44:47 - Institution: Case Times [...] By: Evelyn Vargas RN 04/16/24 13:[address] [facility] Main OR PACU II Recordon Main OR PACU II Record Main OR PACU II Record PACU Phase II Document Type FT Summary Primary Physician: Jesse Ott MD Finalized Date/Time: 04/16/24 15:13:34 Pt. Name: MILLY FOSTER/Sex: 1955 Female Med Rec #: [id number] Physician: Jesse Ott MD Financial #: [id number] Pt. Type: A Room/Bed: [facility]/ Admit/Disch: 04/16/24 07:44:47 - Institution: Case Times [...] By: Jyothi Frank RN 04/16/24 15:[address] [facility] Main OR Preoperative Recordo n 04-16-2024 Main OR Preoperative Record Main OR Preoperative Record PreOp Document Type FT Summary Primary Physician: Jesse Ott MD Finalized Date/Time: 04/16/24 10:49:10 Pt. Name: MILLY FOSTER/Sex: 1955 Female Med Rec #: [id number] Physician: Jesse Ott MD Financial #: [id number] Pt. Type: A Room/Bed: [facility]/ Admit/Disch: 04/16/24 07:44:47 - Institution: Case [...] Linda Vega RN 04/16/24 10:49 Normal [facility] Operative Reporton 4 Operative Report Operative Report Indication for Surgery 68-year-old female with symptomatic ventral hernia here today for robotic assisted laparoscopic repair Preoperative Diagnosis VENTRAL HERNIA Postoperative Diagnosis VENTRAL HERNIA Operation Robotic repair of 5 [place]eter ventral hernia with mesh using IPOM technique Surgeon(s) Tru LIAO, Jesse Shin (Surgeon - Primary) Dramatic Reader [place] Anesthesia Elliot Guidry MD (Food Trades Assistants) Chicho Ellis (Anesthesiologist Dramatic Reader) Estimated Blood Loss 10 cc Urine Output [...] patient tolerated the procedure without difficulty. Normal [facility] Comment on above: Result Comment: Elec tronically Signed By: Jesse Ott MD\.br\Date and Time Signed: 04/16/24 12:36 EST Outpatient Surgery Discharge Instructionon 04-16-2024 Outpatient Surgery Discharge Instruction Outpatient Surgery Discharge Instruction [place] [id number] Patient Discharge Instructions PERSON INFORMATION Name: MILLY [...] Follow up: With: Address: When: Jesse Ott [address] [place] [address], [place] [address], [address] [phone] Business (1) Comments: Appointment has already been scheduled Type Location Start Finish [facility] Post Op [facility] 04/25/2024 11:40 AM 04/25/2024 12:00 PM Confirmed FM [facility] 07/09/2024 8:20 AM 07/09/2024 8:40 AM Confirmed FM Medicare Wellness Subsequent [facility] 03/16/2025 8:00 AM 03/16/2025 9:00 AM Confirmed Pharmacy Information: You may receive a survey from [employer] asking you to rate your care experience. Your feedback is important and will help us understand what we do well and how we can improve the quality of care we provide to you, your loved ones and our community. It???s an honor to serve you. Thank you for choosing [facility] HERE ARE THE MEDICATION CHANGES THAT OCCURRED DURING YOUR HOSPITAL STAY New Medications [id number], [address], [place] [phone], [phone] acetaminophen-hydroco done ([place] 325 mg-5 mg oral tablet) 1 Tablets [...] these instructions at home: Medicines ??? Take ipzb-mul-wdbsjnl and prescription medicines only as told by your health care provider. ??? Ask your health care provider if the medicine prescribed to you: ? Requires you to avoid driving or using machinery. ? Can cause constipation. You may need to take these actions to prevent or treat constipation: ? Drink enough fluid to keep your urine pale yellow. ? Take bycj-mls-mslnavw or prescription medicines. ? Eat foods that [...] and water are not available, use hand spaghetti press helper. ? Jared (more content not included)... Normal [facility] BMPon 04-01-2024 Anion gap [Moles/Vol] 12 mmol/L Normal 6-16 [facility] Comment on above: Performed By: #### 2 [id number] #### [facility] [address] [place] [address] Calcium [Mass/Vol] 9.6 mg/dL Normal 8.9-11.1 [facility] Comment on above: Performed By: #### 2 [id number] #### [facility] [address] [place] [address] Chloride [Moles/Vol] 101 mmol/L Normal 101-111 [facility] Comment on above: Performed By: #### 2 [id number] #### [facility] [address] [place] [address] CO2 [Moles/Vol] 31 mmol/L Normal 21-31 [facility] Comment on above: Performed By: #### 2 [id number] #### [facility] [address] [place] [address] Creatinine [Mass/Vol] 0.7 mg/dL Normal 0.5-1.3 [facility] Comment on above: Performed By: #### 2 [id number] #### [facility] [address] [place] [address] Glucose [Mass/Vol] 84 mg/dL Normal 55-199 [facility] Comment on above: Performed By: #### 2 [id number] #### [facility] [address] [place] [address] Potassium [Moles/Vol] 3.5 mmol/L Normal 3.5-5.3 [facility] Comment on above: Performed By: #### 2 [id number] #### [facility] [address] [place] [address] Sodium [Moles/Vol] 140 mmol/L Normal 135-145 [facility] Comment on above: Performed By: #### 2 [id number] #### [facility] [address] [place] [address] Urea nitrogen [Mass/Vol] 15 mg/dL Normal 5-21 [facility] Comment on above: Performed By: #### 2 [id number] #### [facility] [address] [place] [address] Urea nitrogen/Creatinine [Mass ratio] 21 No Units High 10-20 [facility] Comment on above: Performed By: #### 2 [id number] #### [facility] [address] [place] [address] CBC w/ Auto Diffon 4 Basophils/100 WBC (Bld) 1.1 % Normal 0.0-2.0 [facility] Comment on above: Performed By: #### 2 [id number] #### [facility] [address] [place] [address] Basophils/Leukocytes Auto (Bld) [Pure # fraction] 0.1 E9/L Normal 0.0-0.2 [facility] Comment on above: Performed By: #### 2 [id number] #### [facility] [address] [place] [address] Eosinophils (Bld) [#/Vol] 0.4 E9/L Normal 0.0-0.5 [facility] Comment on above: Performed By: #### 2 [id number] #### [facility] [address] [place] [address] Eosinophils/100 WBC (Bld) 5.4 % Normal 0.0-8.0 [facility] Comment on above: Performed By: #### 2 [id number] #### [facility] [address] [place] [address] Erythrocyte distribution width (RBC) [Ratio] 13.1 % Normal 10.9-14.2 [facility] Comment on above: Performed By: #### 2 [id number] #### [facility] [address] [place] [address] Hematocrit (Bld) [Volume fraction] 40.5 % Normal 34.0-46.0 [facility] Comment on above: Performed By: #### 2 [id number] #### [facility] [address] [place] [address] Hemoglobin (Bld) [Mass/Vol] 13.9 g/dL Normal 12.0-16.0 [facility] Comment on above: Performed By: #### 2 [id number] #### [facility] [address] [place] [address] Lymphocytes (Bld) [#/Vol] 2.3 E9/L Normal 1.0-4.0 [facility] Comment on above: Performed By: #### 2 039010 #### [facility] [address] [place] [address] Lymphocytes/100 WBC (Bld) 29.3 % Normal 14.0-50.0 [facility] Comment on above: Performed By: #### 2 [id number] #### [facility] [address] [place] [address] MCH (RBC) [Entitic mass] 30.6 pg Normal 27.0-34.0 [facility] Comment on above: Performed By: #### 2 [id number] #### [facility] [address] [place] [address] MCHC (RBC) [Mass/Vol] 34.4 g/dL Normal 31.4-36.0 [facility] Comment on above: Performed By: #### 2 363589 #### [facility] [address] [place] [address] MCV (RBC) [Entitic vol] 89.1 fL Normal 80.0-100.0 [facility] Comment on above: Performed By: #### 2 076934 #### [facility] [address] [place] [address] Monocytes (Bld) [#/Vol] 0.6 E9/L Normal 0.2-1.0 [facility] Comment on above: Performed By: #### 2 [id number] #### [facility] [address] [place] [address] Neutrophils (Bld) [#/Vol] 4.4 E9/L Normal 2.0-7.5 [facility] Comment on above: Performed By: #### 2 100518 #### [facility] [address] [place] [address] Neutrophils/100 WBC (Bld) 56.4 % Normal 36.0-75.0 [facility] Comment on above: Performed By: #### 2 [id number] #### [facility] [address] [place] [address] Platelet 325.0 E9/L Normal 150.0-500.0 [facility] Comment on above: Performed By: #### 2 941653 #### [facility] [address] [place] [address] Platelet mean volume (Bld) [Entitic vol] 8.0 fL Normal 6.4-10.8 [facility] Comment on above: Performed By: #### 2 [id number] #### [facility] [address] [place] [address] RBC (Bld) [#/Vol] 4.5 E12/L Normal 4.3-5.9 [facility] Comment on above: Performed By: #### 2 [id number] #### [facility] [address] [place] [address] WBC corrected for nucl RBC Auto (Bld) [#/Vol] 7.8 E9/L Normal 4.0-11.0 [facility] Comment on above: Performed By: #### 2 427958 #### [facility] [address] [place] [address] CHEMISTRYOrdered By: SYSTEM SYSTEM on 04-01-2024 Anion [...] mGy = . DAP = . Normal [facility] eGFRon 04-01-2024 eGFR 95 mL/min/1.73 m2 Normal >=59 [facility] Comment on above: Performed By: #### 1 [id number] ####[facility] [address] Thor[facility] [address] General Surgery Office/Clini c Noteon 03-24-2024 General [...] discussed case with Dr. 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 Ordered: E&M of Est. Patient Moderate 30-39 Min 09967 Hospital-based Procedure Pre-Surgery Testing per Anesthesia Portions of this record may have been created with voice recognition artificial intelligence software, specifically [employer], [employer] and or [employer]. Substitutions may have occurred due to the [...] Hep A, unspecified formulation 12/15/[address] [facility] Comment on above: Result Comment: Elec tronically [...] Oral contrast amount in ml's: [address] [facility] CHEMISTRYOrdered By: SYSTEM SYSTEM on 03-14-2024 Creatinine [Mass/Vol] 0.9 mg/dL Normal 0.5 - 1.3 mg/dL Remisol Chem eGFR 70 mL/min/1.73 m2 Normal >=59mL/min /1.7 3 m2 Remisol Chem Creatinineon 03-14-2024 Creatinine [Mass/Vol] 0.9 mg/dL Normal 0.5-1.3 [facility] Comment on above: Performed By: #### 2 [id number] #### [facility] [address] [place] [address] eGFRon 03-14-2024 eGFR 70 mL/min/1.73 m2 Normal >=59 [facility] Comment on above: Performed By: #### 1 [id number] #### [facility] [address] [place] [address] Ambulatory Visit Summaryon 1 05-10-2023 Ambulatory Visit [...] 8:20 AM EST With: Helen Gay Where: [address] [id number]- Sunday 8:00 AM EST With: Where: [address] [address]- You Need to Complete the [...] drinking restricti (more content not included)... Normal [facility] Family Medicine Office/Clini c Noteon 03-10-2024 Family [...] of clutter to prevent tripping and/or falling. [place] Advance Directives reviewed. Documents provided to patient [...] PCP visit. Labs to be completed with [facility]. No concerns with bowel/ bladder. [...] of Hepatitis C for people born between 1882-3624. Handout CDC-Hepatitis C given. Patient to have labs drawn for Hepatitis C screening based on year of . Test ordered and printed as patient requested labs done at [facility]. 3. Immunization declined (Z28.21: Immunization not [...] encouraged to (more content not included)... Normal [facility] Comment on above: Result Comment: Elec tronically [...] Follow-Up Appointments Sunday 9:30 AM EDT Where: [facility] [place] [address] [place] [address]- Medications What How Much When Instructions Unchanged [...] choosing us for your care. Bib[facility] Family Medicine Office/Clini c Noteon 01-28-2024 Family [...] panel order provided to be done at [facility] Ordered: Est Preventative 65+ years 4. [...] Hep A, unspecified formulation 12/15/[address] [facility] Comment on above: Result Comment: Elec tronically Signed By: James YE, Helen Jacome\.br\Date and Time Signed: 01/28/24 09:45 EDT Outside Mammographyon 2022 Outside Mammography [id number] [facility] CBC AUTO DIFFon 04-19-2022 BASO # 0.1 103/ul Normal 0.0-0.1 [facility] Comment on above: Performed By: #### D ATCBC #### [facility] [address] [place] [address] [address] Tod Coleman Basophils/100 WBC (Bld) 1.8 % Normal 0.2-2.0 [facility] Comment on above: Performed By: #### D ATCBC #### [facility] [address] [place] [address] [address] Tod Coleman EO # 0.4 103/ul Normal 0.0-0.7 [facility] Comment on above: Performed By: #### D ATCBC #### [facility] [address] [place] [address] [address] Tod Coleman Eosinophils/100 WBC (Bld) 5.5 % Normal 0.9-7.0 [facility] Comment on above: Performed By: #### D ATCBC #### [facility] [address] [place] [address] [address] Tod Coleman Erythrocyte distribution width (RBC) [Ratio] 12.3 % Normal 11.0-15.0 [facility] Comment on above: Performed By: #### D ATCBC #### [facility] [address] [place] [address] [address] Tod Coleman Hematocrit (Bld) [Volume fraction] 39.1 % Normal 36.0-48.0 [facility] Comment on above: Performed By: #### D ATCBC #### [facility] [address] [place] [address] [address] Tod Coleman Hemoglobin (Bld) [Mass/Vol] 13.3 g/dL Normal 12.0-16.0 [facility] Comment on above: Performed By: #### D ATCBC #### [facility] [address] [place] [address] [address] Tod Coleman IG # 0.02 10e3/ul Normal 0.00-0.03 [facility] Comment on above: Performed By: #### D ATCBC #### [facility] [address] [place] [address] [address] Tod Coleman IG % 0.3 % Normal 0.0-0.5 [facility] Comment on above: Performed By: #### D ATCBC #### [facility] [address] [place] [address] [address] Tod Coleman LYMPH # 1.8 103/ul Normal 1.2-3.8 [facility] Comment on above: Performed By: #### D ATCBC #### [facility] [address] [place] [address] [address] Tod Coleman Lymphocytes/100 WBC (Bld) 22.5 % Normal 20.5-60.0 [facility] Comment on above: Performed By: #### D ATCBC #### [facility] [address] [place] [address] [address] Tod Coleman MCH (RBC) [Entitic mass] 30.0 pg Normal 26.7-34.0 [facility] Comment on above: Performed By: #### D ATCBC #### [facility] [address] [place] [address] [address] Tod Coleman MCHC (RBC) [Mass/Vol] 34.0 g/dL Normal 29.9-35.2 [facility] Comment on above: Performed By: #### D ATCBC #### [facility] [address] [place] [address] [address] Tod Coleman MCV (RBC) [Entitic vol] 88.1 fL Normal 81.0-99.0 [facility] Comment on above: Performed By: #### D ATCBC #### [facility] [address] [place] [address] Dr. Tod Coleman MONO # 0.5 103/ul Normal 0.3-0.8 [facility] Comment on above: Performed By: #### D ATCBC #### [facility] [address] [place] [address] Dr. Tod Coleman Monocytes/100 WBC (Bld) 6.2 % Normal 1.7-12.0 [facility] Comment on above: Performed By: #### D ATCBC #### [facility] [address] [place] [address] Dr. Tod Coleman NEUT # 5.0 103/ul Normal 1.4-6.5 [facility] Comment on above: Performed By: #### D ATCBC #### [facility] [address] [place] [address] Dr. Tod Coleman Neutrophils/100 WBC (Bld) 63.7 % Normal 43.0-75.0 [facility] Comment on above: Performed By: #### D ATCBC #### [facility] [address] [place] [address] Dr. Tod Coleman Platelet mean volume (Bld) [Entitic vol] 9.2 fL Critically low 9.5-13.5 [facility] Comment on above: Performed By: #### D ATCBC #### [facility] [facility] [address] [place] [address] Dr. Tod Coleman PLT 312 103/ul Normal 150-450 [facility] Comment on above: Performed By: #### D ATCBC #### [facility] [address] [place] [address] Dr. Tod Coleman RBC 4.44 106/ul Normal 4.20-5.40 [facility] Comment on above: Performed By: #### D ATCBC #### [facility] [address] [place] [address] Dr. Tod Coleman WBC 7.9 103/ul Normal 4.0-11.0 [facility] Comment on above: Performed By: #### D ATCBC #### [facility] [address] [address] [address] Tod Coleman ARIN- BMP WITH LIPIDon 2021 Anion gap [Moles/Vol] 13.0 mmol/L Normal [facility] Comment on above: Performed By: #### D ATBMP #### [facility] [address] [address] [address] Tod Coleman Calcium [Mass/Vol] 9.4 mg/dL Normal 8.5-10.1 [facility] Comment on above: Performed By: #### D ATBMP #### [facility] [address] [address] [address] Tod Coleman Chloride [Moles/Vol] 101 mmol/L Normal 98-107 [facility] Comment on above: Performed By: #### D ATBMP #### [facility] [address] [address] [address] Tod Coleman Cholesterol [Mass/Vol] 270 mg/dL Critically high <=200 [facility] Comment on above: Performed By: #### D ATBMP #### [facility] [address] [address] [address] Tod Coleman Cholesterol in HDL [Mass/Vol] 73 mg/dL Critically high 40-60 [facility] Comment on above: Performed By: #### D ATBMP #### [facility] [address] [address] [address] Tod Coleman Cholesterol in LDL [Mass/Vol] 176.8 mg/dL Normal [facility] Comment on above: Performed By: #### D ATBMP #### [facility] [address] [address] [address] Tod Coleman CO2 [Moles/Vol] 31.4 mmol/L Normal 21.0-32.0 [facility] Comment on above: Performed By: #### D ATBMP #### [facility] [address] [address] [address] Tod Coleman Creatinine [Mass/Vol] 0.78 mg/dL Normal 0.55-1.02 [facility] Comment on above: Performed By: #### D ATBMP #### [facility] [address] [address] [address] Tod Coleman EGFR-AF HAITIAN >60 Normal >=60 [facility] Comment on above: Performed By: #### D ATBMP #### [facility] [address] [address] [address] Tod Coleman EGFR-NON AF HAITIAN >60 Normal >=60 [facility] Comment on above: Performed By: #### D ATBMP #### [facility] [address] [address] [address] Tod Coleman Glucose [Mass/Vol] 99 mg/dL Normal 74-106 [facility] Comment on above: Performed By: #### D ATBMP #### [facility] [address] [address] [address] Tod Coleman HDL NORMAL > or = 60 mg/dl - LO W CARDIOVASCULAR RISK <40 mg/dl - HIGH CARDIOVASCULAR RISK Normal [facility] Comment on above: Performed By: #### D ATBMP #### [facility] [address] [address] [address] Tod Coleman LDL CALC NORMAL SEE BELOW Normal [facility] Comment on above: Result Comment: <100 mg/dl OPTIMAL 100 - 129 mg/dl NEAR OR ABOVE OPTIMAL 130 - 159 mg/dl BORDERLINE HIGH 160 - 189 mg/dl HIGH >190 mg/dl VERY HIGH Performed By: #### D ATBMP #### [facility] [address] [address] [address] Tod Coleman Potassium [Moles/Vol] 3.4 mmol/L Critically low 3.5-5.1 [facility] Comment on above: Performed By: #### D ATBMP #### [facility] [address] [address] [address] Tod Coleman Sodium [Moles/Vol] 142 mmol/L Normal 136-145 [facility] Comment on above: Performed By: #### D ATBMP #### [facility] [address] [address] [address] Tod Coleman Triglyceride [Mass/Vol] 101 mg/dL Normal <=150 [facility] Comment on above: Performed By: #### D ATBMP #### [facility] [address] [address] [address] Tod Coleman Urea nitrogen [Mass/Vol] 19.0 mg/dL Critically high 7.0-18.0 [facility] Comment on above: Performed By: #### D ATBMP #### [facility] [address] [address] [address] Tod Coleman Urea nitrogen/Creatinine [Mass ratio] 24.4 mg/mg Normal [facility] Comment on above: Performed By: #### D ATBMP #### [facility] [address] [address] [address] Tod Coleman VLDL CALC 20.2 mg/dL Normal [facility] Comment on above: Performed By: #### D ATBMP #### [facility] [address] [address] [address] Tod Coleman MG MAMM SCREEN 3D LORENZO CADon 04-19-2022 MG MAMM SCREEN 3D LORENZO CAD Patient: MILLY FOSTER Exam Date: 04/19/2022 : 1955 Gender:F Ordering : DR. DARRYL SHAH D.O. Admission #: [id number] Family : Order #: [id number] CLICK HERE TO VIEW EXAM RADIOLOGY REPORT [...] Treatments None Family Cancers None LOCATION: [facility] BREAST COMPOSITION: Scattered areas fibroglandular density. FINDINGS: [...] Lopez M.D. on 04/19/2022 at 14:49 Normal [facility] XR DEXA BONE DENSITYon 04-19 XR DEXA [...] by: KEN LOPEZ Date: 2022-04-19 08:59 Normal [facility] Vital Signs Date Time Vital Sign Value Performing Clinician Faci opal 04-01-2024 14:37-0500 Diastolic blood pressure 102 mm[Hg] Jesse ZuletaChaoWIFI [facility] 04-01-2024 14:37-0500 Heart rate 66 /min Jesse Ott [facility] 04-01-2024 14:37-0500 Mean blood pressure 128 mm[Hg] Jesse VyoptataviaChaoWIFI [facility] 04-01-2024 14:37-0500 Systolic blood pressure 178 mm[Hg] Jesse ZuletaChaoWIFI [facility] 04-01-2024 14:36-0500 Heart rate 76 /min Jesse Mourany [facility] 04-01-2024 14:36-0500 SaO2% (BldA) [Mass fraction] 99 % Jesse Mourany [facility] 04-01-2024 14:36-0500 Body temperature 97.88 [degF] Jesse Mourany [facility] 04-01-2024 14:35-0500 Blood Pressure Location Jesse Mourany [facility] 04-01-2024 14:35-0500 Diastolic blood pressure 102 mm[Hg] Jesse Mourany [facility] 04-01-2024 14:35-0500 Mean blood pressure 126 mm[Hg] Jesse Mourany [facility] 04-01-2024 14:35-0500 Systolic blood pressure 175 mm[Hg] Jesse Mourany [facility] 04-01-2024 14:34-0500 Respiratory rate 16 /min Jesse Mourany [facility] 03-03-2024 14:08-0400 Blood Pressure Location Jesse Mourany [facility] 03-03-2024 14:08-0400 Diastolic blood pressure 92 mm[Hg] Jesse Mourany [facility] 03-03-2024 14:08-0400 Heart rate 76 /min Jesse Mourany [facility] 03-03-2024 14:08-0400 Respiratory rate 16 /min Jesse Mourany [facility] [place] 03-03-2024 14:08-0400 Systolic blood pressure 193 mm[Hg] Jesse Mourany [facility] Encounters Encounter Date Encounter Type Care Provider Facility Start: 03-16-2025 ambulatory Helen L James Facility: [facility] Start: 07-09-2024 ambulatory Helen L James Facility: [facility] Start: 04-25-2024 ambulatory Jesse E. Merlyny Facilit y:[facility] Start: 04-16-2024 End: 04-16-2024 ambulatory Jesse E. Mourany Facility:[facility] Start: 04-01-2024 End: 04-01-2024 ambulatory Jesse E. Mourany Facility:[facility] Start: 04-01-2024 End: 04-01-2024 Patient encounter procedure Jesse Marte. Merlyny [facility] Start: 03-24-2024 End: 03-24-2024 ambulatory Jesse E. Mourany Facility:[facility] Start: 03-24-2024 End: 03-24-2024 Patient encounter procedure Jesse Marte. Motaviay [facility] Start: 03-18-2024 End: 03-18-2024 ambulatory Jesse Zuletay Facility:[facility] Start: 03-18-2024 End: 03-18-2024 Patient encounter procedure Jesse Shin Motaviay [facility] Start: 03-14-2024 End: 03-14-2024 ambulatory Ambrose Vigil Facility:[facility] Start: 03-14-2024 End: 03-14-2024 Patient encounter procedure Ambrose Vigil [facility] Start: 03-10-2024 End: 03-10-2024 ambulatory Helen L James Facility:[facility] Start: 03-03-2024 End: 03-03-2024 ambulatory Jesse E. Mourany Facility:[facility] Start: 03-03-2024 End: 03-03-2024 Patient encounter procedure Jesse Ott [facility] Start: 02-07-2024 ambulatory Helen James Facility:[facility] [...] influenza virus vaccine, unspecified formulation Jesse Ott [facility] 02-25-2020 influenza virus vaccine, unspecified formulation Jesse Ott [facility] 02-25-2019 influenza virus vaccine, unspecified formulation Jesse Ott [facility] 03-22-2018 influenza virus vaccine, unspecified formulation Jesse Monitin [facility] 06-22-2000 Hep A, unspecified formulation Jesse Ott [facility] 06-22-2000 hepatitis B vaccine, adult dosage Jesse Ott [facility] 01-20-2000 hepatitis B vaccine, adult dosage Jesse Ott [facility] 12-15-1999 Hep A, unspecified formulation Jesse Pascalnitin [facility] 12-15-1999 hepatitis B vaccine, adult dosage Jesse Ott [facility] 12-15-1999 Td(adult) unspecifie d formulation Jesse Zuletaivan [facility] NEGATED: Highlighted row has not occurred!03-10-2024 influenza virus vaccine, unspecified formulation Ambrose Vigil [facility] Payers Date Payer Category Payer Unknown [id number] 2022 Medicare [id number] 2022 Private Health Insurance [id number] 1957 Self-pay [id number] 1957 Unknown [id number] 1955 Unknown [id number] 2.16.84 [id number] 1955 Unknown [id number] 2.16.84 0.1.968533.3.579.2.9 1955 Unknown [id number] 2.16.840 .1.575877.3.579.2.1259 1955 Unknown [id number] 2.16.8 40.1.646322.3.579.2.727 1955 Unknown [id number] 2.16.8 40.1.247338.3.579.2.727 1955 Unknown [id number] 2.16.8 40.1.484644.3.579.2.727 1955 Unknown [id number] 2.16.8 40.1.399874.3.579.2.727 1955 Unknown [id number] 2.16.8 40.1.319204.3.579.2.727 1955 Unknown [id number] 2.16.8 40.1.244788.3.579.2.727 1955 Unknown [id number] 2.16.8 40.1.073654.3.579.2.727 1955 Unknown [id number] 2.16.8 40.1.303608.3.579.2.727 1955 Unknown [id number] 2.16.8 40.1.539843.3.579.2.727 1955 Unknown [id number] 2.16.8 40.1.289110.3.579.2.727 1955 Unknown [id number] 2.16.8 40.1.089080.3.579.2.727 Unknown [id number] 2.16.84 0.1.662716.3.579.2.593 Unknown [id number] 2.16.84 0.1.443904.3.579.2.593 Social History Date Type Detail Facility Start: 03-03-2024 End: 03-24-2024 Tobacco smoking status Never smoked tobacco (finding) [facility] Comment on above: denies use. Tobacco smoking status Never [facility] Sex Assigned At Female [facility] Functional Status Date Assessment Result Facility 04-01-2024 Functional Status No [facility] 03-03-2024 Functional Status N/A [facility] Clinical Notes 03-03-2024 to 04-16-2024 [facility] Note Date & Type Note Facility 04-16-2024 Note Progress Note-Physic sean Patient: MILLY FOSTER Age: 68 years Sex: Female : 1955 Associated Diagnoses: None Author: Elliot Romero MD Postoperative Information Postoperative disposition: Postoperative disposition: To PACU. Optimetrix number: Optimetrix number [id number]. Anesthetic utilized: General. Health Status Allergies: Allergic [...] when meets criteria ( To home ). [facility] Comment on above: Result Comment: Elec tronically [...] these instructions at home: Medicines ??? Take bovg-eum-wuubkqb and prescription medicines only as told by your health care provider. ??? Ask your health care provider if the medicine prescribed to you: ? Requires you to avoid driving or using machinery. ? Can cause constipation. You may need to take these actions to prevent or treat constipation: ? Drink enough fluid to keep your urine pale yellow. ? Take dtjw-lnh-uyombrt or prescription medicines. ? Eat foods that [...] and water are not available, use hand spaghetti press helper. ? Change your dressing as told by [...] for signs of (more content not included)... [facility] 04-16-2024 Note H&P Update History and Physical [...] Sister and Brother. Hypertension: Sister and Brother. [facility] 04-16-2024 Note Progress Note-Physic sean Patient: MILLY [...] tab(s), Refill(s) 0, TAKE 1 TABLET DAILY, [facility], 162.6, cm, 04/02/24 7:11:00 EST, [...] All Problems Abdominal hernia / SNOMED CT 03711104 / Confirmed BMI 35.0-35.9,adult / SNOMED CT 861492254 / Confirmed COVID-19 / SNOMED CT 4505441867 / Confirmed 04/27 Hypertension / SNOMED CT 0065634157 / Confirmed Nonsmoker / SNOMED CT 83654243 / Confirmed Right upper quadrant pain / SNOMED CT 190431931 / Confirmed Screening for hyperlipidemia / SNOMED CT 994851579 / Confirmed Ventral hernia / SNOMED CT 5488876919 / Confirmed Wellness examination / SNOMED CT 073509925 / Confirmed Canceled: BMI 34.0-34.9,adult / SNOMED CT 046669603 Canceled: Obesity (BMI 30.0-34.9) / SNOMED CT 254089882610251, Active Problems (9) Abdominal hernia BMI 35.0-35.9,adult COVID-19 Hypertension Nonsmoker Right upper quadrant pain Screening for hyperlipidemia Ventral hernia Wellness examination Histories Past Medical History: No active or resolved past medical history items have been selected or recorded. Family History: Hypertension Brother Sister Diabetes mellitus type 2 Sister Brother Alcoholism Father Procedure history: Colonoscopy ([id number]). Comments: 08/14/2022 13:52 ALTONT - Anu Bruno LPN 2017 Cataract surgery ([id number]). Social History Social & Psychosocial Habits Alcohol [...] 04/01/2024 Risk A (more content not included)... [facility] Comment on above: Result Comment: Elec tronically [...] is also called a myocardial infarction, or NV. If you think you are having a [...] these instructions at home: Medicines ??? Take rfmt-dsa-vyucmki and prescription medicines only as told by [...] ??? You fe (more content not included)... [facility] 03-03-2024 Note General Surgery Offi ce/Clinic Note Chief Complaint consultation for hernia HPI Staff CHICKEN BONER Milly is a 68 y.o. female here for abdominal hernia Helen YE referring Patient presented to PCP with large abdominal hernia visible through her shirt, no previous abdominal surgeries US abdomen done 12/13/2022 (imaging requested) History of Present Illness 68-year-old female referred to us from [place] primary care for evaluation of an abdominal [...] obstructive symptoms. She plans to see her ENVIRONMENTAL SCIENCE TECHNICIAN for her hysterectomy consultation at the end of April just before leaving for vacation to [place] on May 07. She denies any previous [...] with her hysterectomy then her trip to [place] and undergo repair afterwards in the spring that is unless the CT scan shows that there is bowel in the hernia itself or she becomes symptomatic from the hernia or develop signs and symptoms of incarceration/strangulation. In which case we would proceed with a more expedient robotic repair. Ordered: CT Abdomen/Pelvis w/ Contrast E&M of New Patient Moderate 45-59 Min 35317 2. BMI 34.0-34.9,adult (Z68.34: Body mass index [BMI] 34.0-34.9, adult) Education provided Ordered: CT Abdomen/Pelvis w/ Contrast E&M of New Patient Moderate 45-59 Min 52720 3. Obesity (BMI 30.0-34.9) (E66.9: Obesity, unspecified) As above Ordered: CT Abdomen/Pelvis w/ Contrast E&M of New Patient Moderate 45-59 Min 40273 Portions of this record may have been created with voice recognition artificial intelligence software, specifically [employer], [employer] and or [employer]. Substitutions may have occurred due to the [...] Recorded Hep A, unspecified formulation 12/15/[address] [facility] Comment on above: Result Comment: Elec tronically Signed By: Tru LIAO, Jesse Cheema\Date and Time Signed: 03/03/24 14:33 EDT Evaluation + Plan note Future Appointments Appointment Date:03/10/2024 08:00:00 AM Scheduled Provider: Location:[facility] Appointment Type: Medicare Wellness Subsequent Appointment Date:03/18/2024 11:00:00 AM Scheduled [facility] Type:CT Abdomen/Pelvis Combo (FT) Future Scheduled TestsCT Abdomen/Pelvis w/ Contrast 03/18/24 [facility] Evaluation + Plan note Future Appointments Appointment Date:03/18/2024 11:00:00 AM Scheduled Provider: Location[facility] Appointment Type:CT Abdomen/Pelvis Combo (FT) Appointment Date:07/09/2024 08:20:00 AM Scheduled Provider:Helen Gay Location:[facility] Appointment Type: Open Appointment Date:03/16/2025 08:00:00 AM Scheduled Provider: [facility] Appoint[facility] Type: Medicare Wellness Subsequent Future Scheduled TestsHCV Antibody RFX to Quant PCR 03/10/24CT Abdomen/Pelvis w/ Contrast 03/18/24 [facility] Evaluation + Plan note Future Appointments Appointment Date:07/09/2024 08:20:00 AM Scheduled Provider:Helen Gay [facility] App[facility] Type: Open Appointment Date:03/16/2025 08:00:00 AM Scheduled Provider: [facility] Appointment Type: Medicare Wellness Subsequent Future Scheduled TestsHCV Antibody RFX to Quant PCR 03/10/24 [facility] Evaluation + Plan note Future Appointments Appointment Date:04/16/2024 10:00:00 AM Scheduled Provider: Location:[facility] Appointment Type:Surgery FT Appointment Date:04/25/2024 11:40:00 AM Scheduled Provider:Jesse Ott MD Location:[facility] Appointment Type: Post Op 15 Appointment Date:07/09/2024 08:20:00 AM Scheduled Provider:Helen Gay [facility] Appointment Type: Open Appointment Date:03/16/2025 08:00:00 AM Scheduled Provider: [facility] Appointment Type:FM Medicare Wellness Subsequent Future Scheduled TestsHCV Antibody RFX to Quant PCR 03/10/24 [facility] Hospital course Narrative No data available for this section [facility] Discharge instructions No data available for this section [facility] Progress note No data available for this section [facility] Summary Purpose Family History No Family History [...] and content) DATE CREATED AUTHOR 04/28/2022 [facility] DATE CREATED AUTHOR AUTHOR'S ORGANIZ ATION 10/10/2023 [facility] DATE CREATED AUTHOR AUTHOR'S ORGANIZ ATION 03/16/2024 [facility] DATE CREATED AUTHOR AUTHOR'S ORGANIZ ATION 04/04/2024 [facility] DATE CREATED AUTHOR AUTHOR'S ORGANIZ ATION 04/19/2024 [facility] DATE CREATED AUTHOR AUTHOR'S ORGANIZ ATION 04/21/2024 [facility] Center Patient Care team informatio n (unrecognized section and content) Personnel Name: Helen Gay Address: Address: [address] [place] [address]- Personnel Name: Helen Gay Address: Address: [address] [place] [address]- Personnel Name: Helen Gay Address: Address: [address] [place] [address]- Personnel Name: Helen Gay Address: Address: [address] [place] [address]- Personnel Name: Helen Gay Address: Address: [address] [place] [address]- FOR RECORDS PERTAINING TO PATIENTS WHO ARE [...] BE BASED ON THE PRIMARY CLINICAL RECORDS. [facility] 2020 [facility]. provides no warranty or guarantee of the accuracy or completeness of information in this document.
--- NOTE | 2024-04-25 07:55 | MM_ITS ---
Patient Name: NATHALY FOSTER MR#: [id number] : 1955 Exam Date: 04/25/2024 Ordering Doctor: DR. DRARYL SHAH D.O. RADIOLOGY REPORT PROCEDURE: MM TOMOSYNTHESIS SCREENING BI COMPARISON: MG MAMM SCREEN 3D LORENZO CAD, 04/19/2022. MM TOMOSYNTHESIS SCREENING BI, 04/23/2023. INDICATIONS: Screening Calculator Name NCI Breast Cancer Risk Assessment Tool 5 Year Breast Cancer Risk 1.20% Lifetime Breast Cancer Risk 4.40% Personal Breast Cancer No Personal Ovarian Cancer No Treatments None Family Cancers None LOCATION: [facility] BREAST COMPOSITION: There are scattered areas of fibroglandular density. FINDINGS: DIAGNOSTIC CATEGORY 2--BENIGN FINDING. NO CHANGE FROM COMPARISON. Scattered benign-appearing nodules are present. Scattered benign-appearing calcifications are present. Scattered benign-appearing lymph nodes are present. RIGHT BREAST: No significant suspicious finding. LEFT BREAST: No significant suspicious finding. RECOMMENDATIONS: ROUTINE MAMMOGRAM AND CLINICAL EVALUATION IN 12 MONTHS. PLEASE NOTE: A NORMAL MAMMOGRAM DOES NOT EXCLUDE THE POSSIBILITY OF BREAST CANCER. A CLINICALLY SUSPICIOUS PALPABLE LUMP SHOULD BE BIOPSIED. Dictated by: Shaun Patton MD on 04/25/2024 at 09:05 Approved by: Shaun Patton MD on 04/25/2024 at 09:14
== END 2024-04-25 07:30 | disposition home or self-care (01) ==
LOC: MAMMO 07:29
PROVIDERS: PCP Nurse Practitioner; Visit Provider Obstetrics & Gynecology
DX: Z12.31 Encounter for screening mammogram for malignant neoplasm of breast (principal)
CPT/HCPCS: 77063; 77067

== ENCOUNTER 2024-08-06 07:10 | Outpatient (OUT) | payer MEDICARE, SELFPAY ==
--- OUTSIDE RECORDS SUMMARY | 2024-08-06 07:13 | XMS_ITS | CCD ---
Author Organization [facility] Care Team Providers Care Medical Physics Professor Name Role Phone REQUEST, NONE LISTED Consulting Unavaila ble REQUEST, NONE LISTED Admitting Unavaila ble FLORES, DR FELIBERTO Marte Primary Care Unavailable REQUEST, NONE LISTED Attending Unavaila ble REQUEST, NONE LISTED Admitting Unavaila ble FLORES, DR FELIBERTO Marte Primary Care Unavailable REQUEST, NONE LISTED Attending Unavaila ble FLORES, DR FELIBERTO Marte Primary Care Unavailable ZIEBER, DR GIANNA Jordan Consulting Unavailable NATAPRFAINA MARIE Attending Unavailable NATAPRFAINA MARIE Admitting Unavailable NATAPRFAINA MARIE Consulting Unavailable Helen Ramirez Primary Care Physician [phone] Jesse Ott Admitting Unavailable MoJesse taveras Referring Unavailable MoJesse taveras Attending Unavailable Jesse Ott Referring Unavailable MoJesse taveras Attending Unavailable Jesse Ott Admitting Unavailable Jesse Ott Attending Unavailable Jesse Ott Referring Unavailable Jesse Ott Admitting Unavailable MD Ambrose Vigil Admitting Unavailable MD Ambrose Vigil Attending Unavailable Jesse Ott Referring Unavailable Jesse Ott Admitting Unavailable Jesse Ott Attending Unavailable Jesse Ott Attending Unavailable Jesse Ott Attending Unavailable Feliberto Flores MD Primary Care Provider Faina Mendoza DO Unavailable VIRIDIANA COLBY Attending Unavailable GLADYS MAYO Referring Unavailable NATAPRFAINA MARIE Attending Unavailable Jackson, Rakan Attending Unavailable Jackson, Rakan Attending Unavailable JamesHelen Admitting Unavailable JamesHelen Attending Unavailable JamesHelen Attending Unavailable James, DROSS SKIMMER Helen L Attending Unavailable James, DROSS SKIMMER Helen L Admitting Unavailable James, Helen Jacome Attending Unavailable James, Helen Jacome Attending Unavailable James, Helen Jacome Attending Unavailable James, Helen Jacome Attending Unavailable Jesse Ott Attending Unavailable James, Helen Jacome Referring Unavailable Ambrose Vigil Admitting Unavailable Ambrose Vigil Attending Unavailable Allergies Allergy Classification Reported Allergen(s) Allergy Type Date of Onset Reaction(s) Facility (7 sources) Amoxicillin; Translations: [amoxicillin] Drug Allergy 6 [place] Repository (13 sources) Penicillin; Translations: [penicillin] Drug Allergy Eruption of skin (disorder) [facility] (5 sources) No Known Medication Allergies; Translations: [No Known Medication Allergies] Propensity to adverse reactions (disorder) [facility] Repository (3 sources) Amoxicillin Drug Allergy 3 Unknown [facility] (3 sources) Penicillin G Drug Allergy 4 Rash [facility] Work Phone: Medications Current Medications Medication Drug Class(es) Dates Sig (Normalized) Sig (Original) levothyroxine sodium 0.05 mg oral tablet (2 sources) l-Thyroxine Start: 05-20-2024 take 1 tablet by mouth once daily Synthroid 50 mcg Tab 50 mcg = 1 tab(s), Oral, Daily, # 90 tab(s), Refills(s) 0, Pharmacy: [facility]/pharmacy #[id number], 162.6, cm, 04/02/24 7:11:00 EST, Height/Length Dosing, 91.7, kg, 04/02/24 7:11:00 EST, Weight Dosing Start Date: 05/20/24 Status: Ordered Multivitamins and Minerals (4 sources) Start: 04-01-2024 Multivitamins and Minerals Oral, Daily Start Date: 04/01/24 Status: Ordered Vitamin C 500 mg Tab (4 sources) Start: 04-01-2024 take 1 tablet by mouth once daily Vitamin C 500 mg Tab 500 mg = 1 tab(s), Oral, Daily Start Date: 04/01/24 Status: Ordered Vitamin D3 1000 intl units (25 mcg) Tab (4 sources) Start: 04-01-2024 take 1 tablet by mouth once daily Vitamin D3 1000 intl units (25 mcg) Tab 25 mcg = 1 tab(s), Oral, Daily Start Date: 04/01/24 Status: Ordered Completed/Discontinued Medications Medication Drug Class(es) Dates Sig (Normalized) Sig (Original) hydroCHLOROthiazide 12.5 mg / irbesartan 150 mg oral tablet (11 sources) Thiazide Diuretic, Angiotensin 2 Receptor John Start: 02-27-2023 hydrochlorothiazi de-irbesartan 12.5 mg-150 mg Tab See Instructions, 90 tab(s), Refill(s) 0, TAKE 1 TABLET DAILY, [employer] [facility], 162.6, cm, 04/02/24 7:11:00 EST, Height/Length Dosing, 91.7, kg, 04/02/24 7:11:00 EST, Weight Dosing Start Date: 04/02/24 Status: Ordered Problems Problem Classification Problem Date Documented Da te Episodic/Chronic Abdominal hernia (19 sources) Hernia of anterior abdominal wall; Translations: [Ventral hernia without obstruction or gangrene] Onset: 03-03-2024 Episodic Abdominal pain (8 sources) Right upper quadrant pain 12-07-2022 Episodic Cataract (3 sources) After-cataract of bilateral eyes; Translations: [Other secondary cataract, bilateral] Onset: 10-09-2023 10-09-2023 Chronic Essential hypertension (9 sources) Hypertensive disorder; Translations: [Essential hypertension] Onset: 06-07-2024 08-14-2022 Chronic Immunizations and screening for infectious disease (2 sources) Patient encounter status; Translations: [Encounter for screening for human papillomavirus (HPV)] 04-24-2024 Episodic Other bone disease and musculoskeletal deformities (1 [...] Chronic Other nutritional; endocrine; and metabolic disorders (8 sources) Body mass index 30+ - obesity 01-28-2024 Chronic Other screening for suspected conditions (not mental disorders or infectious disease) (9 sources) Encounter for screening mammogram for malignant neoplasm of breast; Translations: [Encounter for screening for osteoporosis] Onset: 04-19-2022 Episodic Prolapse of female genital organs (4 sources) Midline cystocele; Translations: [Cystocele, midline] 05-05-2024 Chronic Residual codes; unclassified (1 source) Asymptomatic menopausal state; Translations: [ASYMPTOMATIC MENOPAUSAL STATE] Onset: 04-23-2022 Episodic Residual codes; unclassified (2 sources) Postmenopausal state; Translations: [Asymptomatic menopausal state] 04-24-2024 Episodic Thyroid disorders (1 source) Hypothyroidism 06-11-2024 Chronic Unclassified (8 sources) Non-smoker 01-28-2024 Unclassified (16 sources) Patient encounter status 12-07-2022 Viral infection (8 sources) Disease caused by 2019-nCoV 08-14-2022 Comment on above: 04/27 Results Test Name Value Interpretation Reference Range Facility Reminderson 06-19-2024 Reminders Reminders - From: Helen Gay To: [facility] - Clinical; Sent: 06/13/2024 13:38:48 EST Show up: 06/13/2024 13:38:00 EST Subject: Ambulatory Reminder Due Date/Time: 06/14/2024 13:37:00 EST TSH is still elevated. I encourage her to start levothyroxine. she is very hesitant about starting it. will recheck TSH 6 weeks after she starts it. she will need to schedule appointment for that. (if she actually starts taking it) Results: Date Result Name Ind Value Ref Range 06/11/2024 11:29 TSH ((H)) 8.16 mcIU/mL (0.34 - 5.60) - From: Tete Bonilla ([facility] - Clinical) To: Helen Gay; Sent: 06/13/2024 14:02:16 EST Show up: 06/13/2024 14:02:00 EST Subject: RE: Ambulatory Reminder spoke with patient she wants to know how her TSH can go from 19 something now to 8.16. She said she will probably start medication. - From: Helen Gay To: [facility] - Clinical; Sent: 06/19/2024 12:34:10 EST Show up: 06/19/2024 12:33:00 EST Subject: RE: Ambulatory Reminder thyroid levels can change very easily. she informed me she was very sick when it was 19. stress/illness can cause it to fluctuate. Pt has been notified. Normal [facility] ED Note-Physicianon 06-17-19 ED Note-Physician ED Note-Physician Basic Information Time Seen: Blayne Ragsdale PA-C 06/07/2024 13:19 Chief Complaint PT REPORTS SHE HAS СВЕТЛАНА MEASURIG HER BP AT HOME AND HAS NOTICED IT GOING UP AND DOWN.DENIES ANY CURRENT SYMPTOMS. History of Present Illness 68-year-old female comes to the ED for evaluation of hypertension. She has a history of hypertension. States she checked her blood pressure today found it to be elevated and she comes to the ED for evaluation. She does states has been compliant with her blood pressure medication, however she states she was recently started on Synthroid which she has not yet started. She has no acute chest pain or shortness of breath. No headache or visual changes. No recent cough, congestion, fever, chills. No nausea or vomiting. Review of Systems A 10 point review of systems is negative except as noted above. Medical and Surgical History: Reviewed and noted Social history: Lives at home Tobacco: Denies Physical Exam Vitals & Measurements T: 37 ???C(Oral) HR: 102(Peripheral) RR: 20 BP: 181/101 SpO2: 96% HT: 162 cm WT: 91.7 kg BMI: 34.94 Nurses notes and vital signs reviewed and patient is not hypoxic. General: The patient appears well and in no significant distress Patient is resting comfortably on the exam bed. Skin: Warm, dry, no pallor noted. Head: Atraumatic. Neck: No JVD. Eye: Normal conjunctiva. Ears, Nose, Mouth, and Throat: Moist mucous members. Cardiovascular: Strong distal pulses. Normal cardiac rate. No peripheral edema. Chest wall: Respiratory: Respirations are nonlabored. Back: Normal range of motion, no CVA tenderness. Musculoskeletal: Normal ROM with no gross deformity. Gastrointestinal: Soft and nontender. Urological: Neurological: Awake and alert. No focal deficits. Follows commands. GCS 15. Psychiatric: Cooperative. Medical Decision Making Patient is overall well-appearing examination. She does appear to be somewhat anxious and she agrees with this. She is worried about her high blood pressure. She is essentially asymptomatic with this. She has no headache or vision changes. There is no chest pain or shortness of breath. She was recently prescribed Synthroid but has not yet started that may be contributory to her high blood pressure. She is slightly tachycardic here. Overall her cardiac workup is reassuring. EKG without ischemic changes. Troponin within normal limits. Stable renal function. Results are discussed at length with her. She only noted elevated blood pressure today. This has not been a pattern. She is educated to monitor blood pressure at home, continue with her current medical regimen, and to contact her PCP on Sunday morning for follow-up and possible medication adjustments if her blood pressure remains persistently elevated. Did stressed importance of starting her Synthroid as well. Patient was encouraged to return to the ED if symptoms worsen or change. Assessment/Plan Hypertension (I10: Essential (primary) hypertension) Disposition Plan Patient Discharge Condition Disposition: Discharged home Condition: Improved and stable Counseled: Patient and/or family were counseled to workup, results, treatment plan and follow-up recommendations Discharge Prescription List Prescriptions No active prescription medications Follow-up With When Contact Information Helen Ramirez In 3 days 06/10/[address] [facility] (1) Additional Instructions: Patient Education Hypertension, Adult Attestation I performed a substantive part of the MDM during the patient???s E/M visit. I personally made or approved the documented management plan and acknowledge its risk of complications. (Independent Interpretation) My (EKG/X-Ray/US/CT) interpretation as above. (Discussion) Management/test interpretation discussed with APC. This report was transcribed using voice recognition software. Every effort was made to ensure accuracy, however, inadvertently computerized internal controls analyst mistakes may be present. Appropriate healthcare PPE was used in evaluating this patient. Problem List/Past Medical History Ongoing Abdominal hernia BMI 35.0-35.9,adult COVID-19 Hypertension Nonsmoker Right upper quadrant pain Screening for hyperlipidemia Ventral hernia Wellness examination Historical No qualifying data Procedure/Surgical History Hernia (04/16/2024), Cataract surgery, Colonoscopy. Medications Inpatient No active inpatient medications Home hydrochlorothiazide- irbesartan 12.5 mg-150 mg Tab, See Instructions Multivitamins and Minerals, Oral, Daily Synthroid 50 mcg Tab, 50 mcg= 1 tab(s), Oral, Daily Vitamin C 500 mg Tab, 500 mg= 1 tab(s), Oral, Daily Vitamin D3 1000 intl units (25 mcg) Tab, 25 mcg= 1 tab(s), Oral, Daily Allergies penicillin (Rash) Social History Alcohol - Denies Alcohol Use, 03/03/2024 Current, Beer, Wine, 1-2 times per week, Previous treatment: None. Alcohol use inte (more content not included)... Normal [facility] Comment on above: Result Comment: Elec tronically Signed By: Blayne Ragsdale PA-C\.br\Date and Time Signed: 06/07/24 14:16 EST\.br\Electronically Co-Signed By: Rakan Paz MD\.br\Date and Time Co-Signed: 06/17/24 11:41 EST CHEMISTRYOrdered By: SYSTEM SYSTEM on 06-11-2024 TSH Qn 8.16 m[IU]/L High 0.34 - 5.60 mcIU/mL Remisol Chem Family Medicine Office/Clini c Noteon 06-11-2024 Family Medicine Office/Clinic Note Family Medicine Office/Clinic Note HPI Staff Milly is a 68 year old female presenting for ER follow up ER followup: Hospital: [facility] Visit date: 06/07/24 Symptoms the patient presented with: elevated blood pressure Symptom onset/injury onset: Testing Performed: labs, ekg Current concerns: Pt has been checking blood pressure at home and did bring in the last 2 days of blood pressures. pt states she has been checking blood pressure 3 times a day and first one she would take right away and then other ones would be sitting for 2-3 minutes before taking. Pt states since April she hasn't been feeling well. Pt was prescribed Levothyroxine on 05/01/24 and pt states she never started it due to she read the side effects. History of Present Illness pt presents today for ER follow up BP was elevated Review of Systems PHQ Score Initial Depression Screen Score: 0 SCORE Physical Exam Vitals & Measurements HR: 84(Peripheral) RR: 18 BP: 132/86 SpO2: 97% HT: 64 in HT: 162.0 cm WT: 85.3 kg WT: 188.054 lb BMI: 32.5 General: alert, no acute distress ENMT: oral mucosa moist, no pharyngeal erythema or exudate Cardiovascular: regular rate and rhythm, normal peripheral perfusion Respiratory: Lungs CTA, respirations non labored Extremities: no deformity, no trauma Neurological: oriented x 4, LOC appropriate for age, CN II-XII intact, motor strength equal & normal bilaterally, speech normal Assessment/Plan 1. Hypothyroid (E03.9: Hypothyroidism, unspecified) TSH was 19 in April. I sent in Synthroid but pt never started it after reading the side effects. but did not inform provider she didn't start it. she ended up in ER with elevated BP. they did cardiac work up and sent her home. she brought in BP log and all are normal. and it is normal in office today. discussed that untreated hypothyroid can cause high blood pressure and many other issues throughout the body. pt would like to have her thyroid checked again today. RTC 3 months Ordered: Lab Specimen Collect [id number] Thyroid Stimulating Hormone 2. Hypertension (I10: Essential (primary) hypertension) BP WNL in office today. 3. BMI 32.0-32.9,adult (Z68.32: Body mass index [BMI] 32.0-32.9, adult) BMI education given Ordered: Thyroid Stimulating Hormone 4. Non-smoker (Z78.9: Other specified health status) continue not smoking Ordered: Thyroid Stimulating Hormone Follow-up No qualifying data available Patient Education Hypothyroidism Problem List/Past Medical History Ongoing Abdominal hernia BMI 35.0-35.9,adult COVID-19 Hypertension Hypothyroid Nonsmoker Right upper quadrant pain Screening for hyperlipidemia Ventral hernia Wellness examination Historical No qualifying data Procedure/Surgical History Hernia (04/16/2024), Cataract surgery, Colonoscopy. Medications hydrochlorothiazide- irbesartan 12.5 mg-150 mg Tab, See Instructions Multivitamins and Minerals, Oral, Daily Synthroid 50 mcg Tab, 50 mcg= 1 tab(s), Oral, Daily, Not taking Vitamin C 500 mg Tab, 500 mg= [...] (less than 100 in lifetime) Tobacco Use:., 04/25/2024 Family History Alcoholism: Father. Diabetes mellitus type [...] Hep A, unspecified formulation 12/15/1999 Recorded Normal [facility] Comment on above: Result Comment: Elec tronically Signed By: Helen Gay\.br\Date and Time Signed: 06/11/24 13:05 EST TSHon 06-11-2024 TSH Qn 8.16 m[IU]/L High 0.34-5.60 [facility] Comment on above: Performed By: #### 2 [id number] #### [facility] [address] [place] [address] BMPon 06-07-2024 Anion gap [Moles/Vol] 16 mmol/L Normal 6-16 [facility] Comment on above: Performed By: #### 2 [id number] #### [facility] [address] [place] [address] Calcium [Mass/Vol] 9.8 mg/dL Normal 8.9-11.1 [facility] Comment on above: Performed By: #### 2 [id number] #### [facility] [address] [place] [address] Chloride [Moles/Vol] 101 mmol/L Normal 101-111 [facility] Comment on above: Performed By: #### 2 [id number] #### [facility] [address] [place] [address] CO2 [Moles/Vol] 27 mmol/L Normal 21-31 [facility] Comment on above: Performed By: #### 2 [id number] #### [facility] [address] [place] [address] Creatinine [Mass/Vol] 0.8 mg/dL Normal 0.5-1.3 [facility] Comment on above: Performed By: #### 2 [id number] #### [facility] [address] [place] [address] Glucose [Mass/Vol] 115 mg/dL Normal 55-199 [facility] Comment on above: Performed By: #### 2 [id number] #### [facility] [address] [place] [address] Potassium [Moles/Vol] 3.6 mmol/L Normal 3.5-5.3 [facility] Comment on above: Performed By: #### 2 [id number] #### [facility] [address] [place] [address] Sodium [Moles/Vol] 140 mmol/L Normal 135-145 [facility] Comment on above: Performed By: #### 2 [id number] #### [facility] [address] [place] [address] Urea nitrogen [Mass/Vol] 13 mg/dL Normal 5-21 [facility] Comment on above: Performed By: #### 2 [id number] #### [facility] [address] [place] [address] Urea nitrogen/Creatinine [Mass ratio] 16 No Units Normal 10-20 [facility] Comment on above: Performed By: #### 2 [id number] #### [facility] [address] [place] [address] CBC w/ Auto Diffon 5 Basophils/100 WBC (Bld) 1.1 % Normal 0.0-2.0 [facility] Comment on above: Performed By: #### 2 [id number] #### [facility] [address] [place] [address] Basophils/Leukocytes Auto (Bld) [Pure # fraction] 0.1 E9/L Normal 0.0-0.2 [facility] Comment on above: Performed By: #### 2 [id number] #### [facility] [address] [place] [address] Eosinophils (Bld) [#/Vol] 0.2 E9/L Normal 0.0-0.5 [facility] Comment on above: Performed By: #### 2 [id number] #### [facility] [address] [place] [address] Eosinophils/100 WBC (Bld) 2.1 % Normal 0.0-8.0 [facility] Comment on above: Performed By: #### 2 [id number] #### [facility] [address] [place] [address] Erythrocyte distribution width (RBC) [Ratio] 13.3 % Normal 10.9-14.2 [facility] Comment on above: Performed By: #### 2 [id number] #### [facility] [address] [place] [address] Hematocrit (Bld) [Volume fraction] 41.9 % Normal 34.0-46.0 [facility] Comment on above: Performed By: #### 2 [id number] #### [facility] [address] [place] [address] Hemoglobin (Bld) [Mass/Vol] 14.4 g/dL Normal 12.0-16.0 [facility] Comment on above: Performed By: #### 2 [id number] #### [facility] [address] [place] [address] [place] [address] Lymphocytes (Bld) [#/Vol] 1.1 E9/L Normal 1.0-4.0 [facility] Comment on above: Performed By: #### 2 [id number] #### [facility] [address] [place] [address] Lymphocytes/100 WBC (Bld) 13.5 % Low 14.0-50.0 [facility] Comment on above: Performed By: #### 2 [id number] #### [facility] [address] [place] [address] MCH (RBC) [Entitic mass] 30.9 pg Normal 27.0-34.0 [facility] Comment on above: Performed By: #### 2 [id number] #### [facility] [address] [place] [address] MCHC (RBC) [Mass/Vol] 34.4 g/dL Normal 31.4-36.0 [facility] Comment on above: Performed By: #### 2 [id number] #### [facility] [address] [place] [address] MCV (RBC) [Entitic vol] 89.8 fL Normal 80.0-100.0 [facility] Comment on above: Performed By: #### 2 [id number] #### [facility] [address] [place] [address] Monocytes (Bld) [#/Vol] 0.6 E9/L Normal 0.2-1.0 [facility] Comment on above: Performed By: #### 2 [id number] #### [facility] [address] [place] [address] Neutrophils (Bld) [#/Vol] 6.4 E9/L Normal 2.0-7.5 [facility] Comment on above: Performed By: #### 2 [id number] #### [facility] [address] [place] [address] Neutrophils/100 WBC (Bld) 76.5 % High 36.0-75.0 [facility] Comment on above: Performed By: #### 2 [id number] #### [facility] [address] [place] [address] Platelet mean volume (Bld) [Entitic vol] 7.8 fL Normal 6.4-10.8 [facility] Comment on above: Performed By: #### 2 [id number] #### [facility] [address] [place] [address] Platelets (Bld) [#/Vol] 345.0 E9/L Normal 150.0-500.0 [facility] Comment on above: Performed By: #### 2 [id number] #### [facility] [address] [place] [address] RBC (Bld) [#/Vol] 4.7 E12/L Normal 4.3-5.9 [facility] Comment on above: Performed By: #### 2 [id number] #### [facility] [address] [place] [address] WBC corrected for nucl RBC Auto (Bld) [#/Vol] 8.3 E9/L Normal 4.0-11.0 [facility] Comment on above: Performed By: #### 2 [id number] #### [facility] [address] [place] [address] CHEMISTRYOrdered By: SYSTEM SYSTEM on 06-07-2024 Troponin HS 19.50 pg/mL Normal 10.10 - 27.10 pg/mL [facility] Comment on above: Interpretive Data: T he 95% CI (Confidence Interval) PPV (Positive Predictive Value) for myocardial infarction in females is 38 pg/mL, in males 51 pg/mL. The results should be used in conjunction with clinical conditions of myocardial infarction. (Access High Sensitivity Troponin I Instructions For Use, Joy Altagracia, December 2017) Anion gap [Moles/Vol] 16 mmol/L Normal 6 - 16 mEq/L R emisol Chem Calcium [Mass/Vol] 9.8 mg/dL Normal 8.9 - 11. 1 mg/dL [facility] Chloride [Moles/Vol] 101 mmol/L Normal 101 - 1 11 mmol/L [facility] CO2 [Moles/Vol] 27 mmol/L Normal 21 - 31 mmol/L [facility] Creatinine [Mass/Vol] 0.8 mg/dL Normal 0.5 - 1.3 mg/dL [facility] eGFR 81 mL/min/1.73 m2 Normal >=59mL/min /1 .73 m2 [facility] Glucose [Mass/Vol] 115 mg/dL Normal 55 - 199 mg/dL [facility] Potassium [Moles/Vol] 3.6 mmol/L Normal 3.5 - 5.3 mmol/L [facility] Sodium [Moles/Vol] 140 mmol/L Normal 135 - 145 mmol/L [facility] Troponin HS 20.90 pg/mL Normal 10.10 - 27.10 pg/mL [facility] Comment on above: Interpretive Data: T he 95% CI (Confidence Interval) PPV (Positive Predictive Value) for myocardial infarction in females is 38 pg/mL, in males 51 pg/mL. The results should be used in conjunction with clinical conditions of myocardial infarction. (Access High Sensitivity Troponin I Instructions For Use, Joy Altagracia, December 2017) Urea nitrogen [Mass/Vol] 13 mg/dL Normal 5 - 21 mg/dL [facility] Urea nitrogen/Creatinine [Mass ratio] 16 mg/mg Normal 10 - 20 [facility] COAGULATIONOrdered By: Guerda Veliz on 06-07-2024 aPTT Coag (PPP) [Time] 36.0 s Normal 25.1 - 36.5 second(s) [facility] Comment on above: Interpretive Data: P arameter 15 days - 4 weeks 1 - 5 months 6 - 11 months 1 - 5 years 6 - 10 years 11 - 17 years PTT Mean: 35.4 (27.6-45.6) Mean: 33.5 (24.8-40.7) Mean: 32.4 (25.1-40.7) Mean: 31.6 (24.0-39.2) Mean: 31.6 (26.9-38.7) Mean: 31.0 (24.6-38.4) Pediatric Reference ranges were obtained from a study by Corey Doyle et al. prepared from 1437 samples obtained at 7 different centers using the same coagulation reagent and instrumentation as [facility]. Currently there are no coagulation studies available worldwide for children to 14 days, and no normal ranges. Heparin therapeutic range (represented by Anti-Factor Xa activity of 0.2 - 0.4 U/mL) corresponds to PTT of 56.6 - 109.0 sec. INR Coag (PPP) [Relative time] 0.96 {INR} Invalid Interpretation Code [facility] Auto Coag Comment on above: Interpretive Data: I NR results are specifically intended to assess patients stabilized on long-term Anticoagulation therapy suggested INR s Less Intensive Anticoagulation 2.0 3.0 Conventional Range 3.0 4.5 PT Coag (PPP) [Time] 10.8 s Normal 9.4 - 1 2.5 second(s) [facility] Auto Coag Comment on above: Interpretive Data: 1 5 days - 4 weeks 1 - 5 months 6 -11 months 1 5 years 6 10 years 11 -17 years Mean: 11.2 (9.5 12.6) Mean: 11.0 (9.7 12.8) Mean: 11.0 (9.8 13.0) Mean: 11.3 (9.9 13.4) Mean: 11.7 (10.0 14.6) Mean: 11.8 (10.0 - 14.1) Pediatric Reference ranges were obtained from a study by Corey Doyle et al. prepared from 1437 samples obtained at 7 different centers using the same coagulation reagent and instrumentation as [facility]. Currently there are no coagulation studies available worldwide for children to 14 days, and no normal ranges. ED Clinical Summaryon 2024 ED Clinical Summary ED Clinical Summary [place] [id number] ED Clinical Summary Person Information Name: MILLY SALAZAR/[facility] Age: 68 Years : 1955 Sex: Female Language: Greenlandic PCP: Helen Gay Marital Status: Visit Id: Visit Reason: Hypertension; HIGH BLOOD PRESSURE Speciality: Acuity: 3 Enc Type: Emergency Med Service: Emergency Arrival: 06/07/2024 12:14:50 Discharge: 06/07/2024 13:55:25 LOS: 000 01:41 Checkin: 06/07/2024 12:14:50 Checkout: 06/07/2024 13:55:25 Dispo Type: Home (Routine DC) EVENTS: Event Name Event Status Request Date/Time Start Date/Time Complete Date/Time Arrive Complete 06/07/2024 12:14:50 06/07/2024 12:14:50 06/07/2024 12:14:50 Document Home Meds Request 06/07/2024 12:14:50 Triage Complete 06/07/2024 12:14:50 06/07/2024 12:22:55 06/07/2024 12:22:55 Registration Complete 06/07/2024 12:18:57 06/07/2024 12:18:57 06/07/2024 12:18:57 Reg Complete Request 06/07/2024 12:18:57 Reg Bed Request Complete 06/07/2024 12:18:57 06/07/2024 12:18:57 06/07/2024 12:18:57 EKG Complete 06/07/2024 12:21:37 06/07/2024 12:27:14 Pending Labs Inlab 06/07/2024 12:23:35 Lab Complete 06/07/2024 12:23:35 06/07/2024 13:08:44 X-Ray Complete 06/07/2024 12:23:35 06/07/2024 12:37:58 06/07/2024 12:45:03 Pending Labs Complete 06/07/2024 12:36:02 06/07/2024 12:36:02 06/07/2024 13:08:44 Lab Complete 06/07/2024 12:36:02 06/07/2024 12:36:02 06/07/2024 13:08:44 Pending Labs Complete 06/07/2024 12:36:42 06/07/2024 12:36:42 06/07/2024 12:36:43 Wet Read Request 06/07/2024 12:45:03 Bed Assign Complete 06/07/2024 12:58:37 06/07/2024 12:58:37 06/07/2024 12:58:37 Dr Exam Complete 06/07/2024 12:58:37 06/07/2024 13:19:47 06/07/2024 13:19:47 RN Exam Complete 06/07/2024 12:58:37 06/07/2024 13:03:32 06/07/2024 13:03:32 Registration Request 06/07/2024 13:19:47 Dr Exam Complete 06/07/2024 13:44:54 06/07/2024 13:44:54 06/07/2024 13:44:54 Discharge Complete 06/07/2024 13:50:34 06/07/2024 13:55:29 06/07/2024 13:55:29 Transfer Complete 06/07/2024 13:55:29 06/07/2024 13:55:29 06/07/2024 13:55:29 ADDRESS: [address] [place] [phone] PHYS DOC NOTES: MEDICAL INFORMATION: Prescriptions Given: Medications to Continue with No Changes Other Medications ascorbic acid (Vitamin C 500 mg Tab) 1 Tablets By Mouth every day. cholecalciferol (Vitamin D3 1000 intl units (25 mcg) Tab) 1 Tablets By Mouth every day. hydrochlorothiazide- irbesartan (hydrochlorothiazide -irbesartan 12.5 mg-150 mg Tab) TAKE 1 TABLET DAILY. Refills: 0. levothyroxine (Synthroid 50 mcg Tab) 1 Tablets By Mouth every day. Refills: 0. multivitamin with minerals (Multivitamins and Minerals) By Mouth every day. PATIENT EDUCATION INFORMATION: Instructions: Hypertension, Adult Follow up: With: Address: When: Helen Ramirez [address] [place] [address] [facility] ([employer] In 3 days 06/10/2024 DIAGNOSIS: Hypertension Normal [facility] ED Patient Summaryon 025 ED Patient Summary ED Patient Summary [address] [address] Patient Discharge Instructions Person Information Name: MILLY SALAZAR Age: 68 Years Arrival Date: 06/07/2024 12:14:50 Discharge Diagnosis: Hypertension Primary Care Physician: Helen Gay Provider Information Primary Provider: Rakan Paz MD Advanced Kettle Skimmer:Blayne Ragsdale PA-C The exam and treatment you received in the Emergency Department were for an urgent problem and are not intended as complete care. It is important that you follow up with a doctor, nurse practitioner, or physician???s preschool teacher assistant for ongoing care. If your symptoms become worse or you do not improve as expected and you are unable to reach your usual health care provider, you should return to the Emergency Department. We are available 24 hours a day. MILLY SALAZAR has been given the following list of patient education materials, prescriptions and follow-up instructions: Follow-up Instructions: With: Address: When: Helen Ramirez [address] [place] [address] Business (1) In 3 days 06/10/2024 In the event that this physician does not participate in your insurance network, please consult with your insurance company to find a nearby participating provider. Patient Education Materials: Hypertension, Adult A MESSAGE TO ALL PATIENTS REGARDING OPIOIDS PRESCRIPTION OPIOIDS: WHAT YOU NEED TO KNOW Prescription opioids can be used to help relieve pchtcgog-up-rsurcn pain and are often prescribed following a surgery or injury, or for certain health conditions. These medications can be an important part of the treatment but also come with serious risks. It is important to work with your healthcare provider to make sure you are getting the safest, most effective care. WHAT ARE THE RISKS AND SIDE EFFECTS OF OPIOID USE? Prescription opioids carry serious risks of addiction and overdose, especially with prolonged use. An opioid overdose, often marked by slowed breathing, can cause sudden . The use of prescription opioids can have a number of side effects as well, even when taken as directed: ??? Tolerance???meaning you might need to take more of the medication for the same pain relief ??? Physical dependence???meaning you have symptoms of withdrawal when a medication is stopped ??? Increased sensitivity to pain ??? Constipation ??? Nausea, vomiting, and dry mouth ??? Sleepiness and dizziness ??? Confusion ??? Depression ??? Low levels of testosterone that can result in lower sex drive, energy, and strength ??? Itching and sweating RISKS ARE GREATER WITH: ??? History of drug misuse, substance use disorder, or overdose ??? Mental health conditions (such as depression or anxiety) ??? Sleep apnea ??? Older age (65 years and older) ??? Avoid alcohol while taking prescription opioids. Also, unless specifically advised by your health care provider, medications to avoid include: ??? Benzodiazepines (such as Xanax or Valium) ??? Muscle relaxants (such as Soma or Flexeril) ??? Hypnotics (such as Ambien or Lunesta) ??? Other prescription opioids KNOW YOUR OPTIONS Talk to your health care provider about ways to manage your pain that don???t involve prescription opioids. Some of these options may actually work better and have fewer risks and side effects. Options may include: ??? Pain relievers such as acetaminophen, ibuprofen, and naproxen ??? Some medication that are also used for depression or seizures ??? Physical therapy and exercise ??? Cognitive behavioral therapy, a psychological, goal-directed approach, in which patients learn how to modify physical, behavioral, and emotional triggers of pain and stress. IF YOU ARE PRESCRIBED OPIOIDS FOR PAIN: ??? Never take opioids in greater amounts or more often than prescribed. ??? Follow up with your primary health care provider. o Work together to create a plan on how to manage your pain. o Talk about ways to help manage your pain that don???t involve prescription opioids. o Talk about any and all concerns and side effects. ??? Help prevent misuse and abuse o Never sell or share prescription opioids. o Never use another person???s prescription opioids. ??? Store prescription opioids in a secure place and out of reach of others (this may include visitors, children, friends, and family). ??? Safely dispose of unused prescription opioids: Find your community drug take-back program or your pharmacy mail-back program, or flush them down the toilet, following guidance from the Food and Drug Administration (www.fda.gov/Drugs/R esourcesForYou). ??? Visit www.cdc.gov/drugover dose to learn about the risks of opioids abuse and overdose. ??? If you believe you may be struggling with addiction, tell your health child care provider and ask for joe (more content not included)... Normal [facility] HEMATOLOGYOrdered By: SYSTEM SYSTEM on 06-07-2024 Basophils/100 WBC (Bld) 1.1 % Normal 0.0 - 2.0 % Remisol Heme Basophils/Leukocytes Auto (Bld) [Pure # fraction] 0.1 E9/L Normal 0.0 - 0.2 E9/L Remisol Heme Eosinophils (Bld) [#/Vol] 0.2 E9/L Normal 0.0 - 0.5 E9/L Remisol Heme Eosinophils/100 WBC (Bld) 2.1 % Normal 0.0 - 8.0 % Remisol Heme Erythrocyte distribution width (RBC) [Ratio] 13.3 % Normal 10.9 - 14.2 % Remisol Heme Hematocrit (Bld) [Volume fraction] 41.9 % Normal 34.0 - 46.0 % Remisol Heme Hemoglobin (Bld) [Mass/Vol] 14.4 g/dL Normal 12.0 - 16.0 gm/dL Remisol Heme Lymphocytes (Bld) [#/Vol] 1.1 E9/L Normal 1.0 - 4.0 E9/L Remisol Heme Lymphocytes/100 WBC (Bld) 13.5 % Low 14.0 - 50.0 % Remisol Heme MCH (RBC) [Entitic mass] 30.9 pg Normal 27.0 - 34.0 pg Remisol Heme MCHC (RBC) [Mass/Vol] 34.4 g/dL Normal 31.4 - 36.0 gm/dL Remisol Heme MCV (RBC) [Entitic vol] 89.8 fL Normal 80.0 - 100.0 fL Remisol Heme Monocytes (Bld) [#/Vol] 0.6 E9/L Normal 0.2 - 1.0 E9/L Remisol Heme Monocytes/100 WBC (Bld) 6.8 % Normal 4.0 - 14.0 % Remisol Heme Neutrophils (Bld) [#/Vol] 6.4 E9/L Normal 2.0 - 7.5 E9/L Remisol Heme Neutrophils/100 WBC (Bld) 76.5 % High 36.0 - 75.0 % Remisol Heme Platelet mean volume (Bld) [Entitic vol] 7.8 fL Normal 6.4 - 10.8 fL Remisol Heme Platelets (Bld) [#/Vol] 345.0 E9/L Normal 150.0 - 500.0 E9/L Remisol Heme RBC (Bld) [#/Vol] 4.7 E12/L Normal 4.3 - 5.9 E12/L Remisol Heme WBC corrected for nucl RBC Auto (Bld) [#/Vol] 8.3 E9/L Normal 4.0 - 11.0 E9/L Remisol Heme PT & PTTon 06-07-2024 aPTT Coag (PPP) [Time] 36.0 second(s) Normal 25.1-36.5 [facility] Comment on above: Result Comment: Para meter 15 days - 4 weeks 1 - 5 months 6 - 11 months 1 - 5 years 6 - 10 years 11 - 17 years PTT Mean: 35.4 (27.6-45.6) Mean: 33.5 (24.8-40.7) Mean: 32.4 (25.1-40.7) Mean: 31.6 (24.0-39.2) Mean: 31.6 (26.9-38.7) Mean: 31.0 (24.6-38.4) Pediatric Reference ranges were obtained from a study by vicki Schneider al. prepared from 1437 samples obtained at 7 different centers using the same coagulation reagent and instrumentation as [facility]. Currently there are no coagulation studies available worldwide for children to 14 days, and no normal ranges. Heparin therapeutic range (represented by Anti-Factor Xa activity of 0.2 - 0.4 U/mL) corresponds to PTT of 56.6 - 109.0 sec. Performed By: #### 1 [id number] #### [facility] [address] [place] [address] INR Coag (PPP) [Relative time] 0.96 {INR} Invalid Interpretation Code [facility] Comment on above: Result Comment: INR results are specifically intended to assess patients stabilized on long-term Anticoagulation therapy suggested INR???s ???Less Intensive Anticoagulation??? 2.0 ??? 3.0 Conventional Range 3.0 ??? 4.5 Performed By: #### 1 [id number] #### [facility] [address] [place] [address] PT Coag (PPP) [Time] 10.8 second(s) Normal 9.4-12.5 [facility] Comment on above: Result Comment: 15 d ays - 4 weeks 1 - 5 months 6 -11 months 1 ??? 5 years 6 ??? 10 years 11 -17 years Mean: 11.2 (9.5 ??? 12.6) Mean: 11.0 (9.7 ??? 12.8) Mean: 11.0 (9.8 ??? 13.0) Mean: 11.3 (9.9 ??? 13.4) Mean: 11.7 (10.0 ??? 14.6) Mean: 11.8 (10.0 - 14.1) Pediatric Reference ranges were obtained from a study by vicki Schneider al. prepared from 1437 samples obtained at 7 different centers using the same coagulation reagent and instrumentation as [facility]. Currently there are no coagulation studies available worldwide for children to 14 days, and no normal ranges. Performed By: #### 1 [id number] #### [facility] [address] [place] [address] Troponin 0 Hr.on 06-07-2024 Troponin HS 20.90 pg/mL Normal 10.10-27.10 [facility] Comment on above: Result Comment: The 95% CI (Confidence Interval) PPV (Positive Predictive Value) for myocardial infarction in females is 38 pg/mL, in males 51 pg/mL. The results should be used in conjunction with clinical conditions of myocardial infarction. (Access High Sensitivity Troponin I Instructions For Use, [employer], December 2017) Performed By: #### 1 [id number] #### [facility] [address] [place] [address] Troponin 1 Hr.on 06-07-2024 Troponin HS 19.50 pg/mL Normal 10.10-27.10 [facility] Comment on above: Order Comment: 1330 Result Comment: The 95% CI (Confidence Interval) PPV (Positive Predictive Value) for myocardial infarction in females is 38 pg/mL, in males 51 pg/mL. The results should be used in conjunction with clinical conditions of myocardial infarction. (Access High Sensitivity Troponin I Instructions For Use, [employer], December 2017) Performed By: #### 1 [id number] #### [facility] [address] [place] [address] XR Chest Single Viewon 06-07 XR Chest Single View Exam Date/Time: 06/07/2024 12:45 EST Reason for Exam: Chest pain Report IMPRESSION: No acute findings by portable radiography. EXAMINATION/TECHNIQU E: XR Chest Single View HISTORY: Chest pain. COMPARISON: 04/01/2024. RESULT: Elevation of the right hemidiaphragm with probable scarring/atelectasis at the right lung base. No distinct focal consolidation. No large pleural effusion. No pneumothorax. Stable cardiomediastinal silhouette. No acute osseous findings. Ordering Provider: Rakan Paz FINAL REPORT Dictated: 06/07/2024 1:28 pm Beni Parnell MD Signed (Electronic Signature): 06/07/2024 1:28 pm Signed by: Beni Parnell MD Transcribed by: YOMI Technologist: WILLIAM Mccarty [facility] eGFRon 06-07-2024 eGFR 81 mL/min/1.73 m2 Normal >=59 [facility] Comment on above: Performed By: #### 1 [id number] #### [facility] [address] [place] [address] THINPREP TIS PAP AND HPV mRN A E6/E7 WITH REFLEX TO HPV 16,18/45on 05-06-2024 CLINICAL INFORMATION: Normal [facility] Comment on above: Result Comment: None given Performed By: #### 9 1414 #### [facility] [address], [address] [place], [place] [id number] Media Production Operator: Bret Olsen MD COMMENT Normal [facility] Comment on above: Result Comment: EXPL ANATORY NOTE: The Pap is a screening test for cervical cancer. It is not a diagnostic test and is subject to false negative and false positive results. It is most reliable when a satisfactory sample, regularly obtained, is submitted with relevant clinical findings and history, and when the Pap result is evaluated along with historic and current clinical information. Performed By: #### 9 1414 #### [facility] [address], [address] [place] [id number] Media Production Operator: Bret Olsen MD COMMENT: Normal [facility] Comment on above: Result Comment: This Pap test has been evaluated with computer assisted technology. Parabasal cells in smears that lack maturation due to atrophy or other hormonal reasons cannot be differentiated from transformation zone cells. Accordingly, presence or absence of endocervical or transformation zone components cannot be reported in this patient. Performed By: #### 9 1414 #### [facility] of [address], [address] [place] [address] Media Production Operator: Bret Olsen MD INSPECTOR GRAIN MILL PRODUCTS: Normal [facility] Comment on above: Result Comment: BLM, CT(ASCP) CT Screening Location: [place] [address] Performed By: #### 9 1414 #### [facility] of [address], [address] [place] [address] Media Production Operator: Bret Olsen MD HPV mRNA E6/E7 Not detected Normal Not Detected [facility] Comment on above: Result Comment: Meth odology: Bull Fiddle Player-Mediated Amplification This assay detects E6/E7 viral messenger RNA (mRNA) from 14 high-risk HPV types (16,18,31,33,35,39,45,51,52,56,58,59,66,68). Cervical sources are required for HPV testing. If a vaginal source from a patient who has had a total hysterectomy with removal of cervix was submitted, please contact the testing laboratory for alternative testing options. For additional information, please refer to http://education.Travel Desiya/faq/ADP067n8 (This link if provided for information/ educational purposes only.) Performed By: #### 9 1414 #### [facility] [address], [address] [place] [address] Media Production Operator: Bret Olsen MD INTERPRETATION/RESULT: Normal [facility] Comment on above: Result Comment: Cyto logy Results: Negative for intraepithelial lesion or malignancy. Atrophic pattern; predominantly parabasal cells Performed By: #### 9 1414 #### [facility] of [address], [address] [place] [address] Media Production Operator: Bret Olsen MD LMP: Normal [facility] Comment on above: Result Comment: None given Performed By: #### 9 1414 #### [facility] [address], [address] [place] [address] Media Production Operator: Bret Olsen MD PREV. BX: Normal [facility] Comment on above: Result Comment: None given Performed By: #### 9 1414 #### [facility] of [address], [address] [place] [address] Media Production Operator: Bret Olsen MD PREV. PAP: Normal [facility] Comment on above: Result Comment: None given Performed By: #### 9 1414 #### [facility] of [address], [address] [place] [address] Media Production Operator: Bret Olsen MD SOURCE: Normal [facility] Comment on above: Result Comment: None given Performed By: #### 9 1414 #### [facility] of [address], [address] [place] [address] Media Production Operator: Bret lOsen MD STATEMENT OF ADEQUACY: Normal [facility] Comment on above: Result Comment: SATI SFACTORY FOR EVALUATION Performed By: #### 9 1414 #### [facility] of [address], [address] [place] [address] Media Production Operator: Bret Olsen MD General Surgery Office/Clini c Noteon 04-25-2024 General Surgery Office/Clinic Note General Surgery Office/Clinic Note HPI Staff Milly is a 68 y.o. female here for s/p ventral hernia repair done 04/16/24 Patient denies excessive bleeding/pain/discha rge/fever/chills. History of Present Illness 68-year-old female status post robotic ventral hernia repair with mesh using IPOM technique. Patient doing well from surgery noted some bruising near the port sites but denies any issues is tolerating regular diet. Physical Exam Abdomen soft nontender nondistended incisions clean dry intact supraumbilical ventral hernia site is nontender to palpation, no evidence of recurrence on examination Assessment/Plan 1. Ventral hernia (K43.9: Ventral hernia without obstruction or gangrene) No lifting pushing pulling greater than 35 pounds for 6 weeks after surgery. Patient follow-up with us as needed. Ordered: E&M of Est. Patient Low 20-29 Min [address] Portions of this record may have been created with voice recognition artificial intelligence software, specifically Ofelia Feliz, [employer] and or [employer]. Substitutions may have occurred due to the inherent limitations of voice recognition and artificial intelligence software. Follow-up No qualifying data available Problem List/Past Medical History Ongoing Abdominal hernia BMI 35.0-35.9,adult COVID-19 Hypertension Nonsmoker Right upper quadrant pain Screening for hyperlipidemia Ventral hernia Wellness examination Historical No qualifying data Procedure/Surgical History Hernia (04/16/2024), Cataract surgery, Colonoscopy. Medications hydrochlorothiazide- irbesartan 12.5 mg-150 mg Tab, See Instructions Multivitamins and Minerals, Oral, Daily Vitamin C 500 mg Tab, 500 mg= [...] (less than 100 in lifetime) Tobacco Use:., 04/25/2024 Family History Alcoholism: Father. Diabetes mellitus type [...] Hep A, unspecified formulation 12/15/1999 Recorded Normal [facility] Comment on above: Result Comment: Elec tronically Signed By: MouranJesse love MD\.br\Date and Time Signed: 04/25/24 12:04 EST Surgical Pathology Reporton 04-18-2024 Surgical Pathology Report [address] [place] [address]- Surgical Pathology Report Collected Date/Time: 04/16/2024 11:59 EST Pathologist: Jared LIAO PhD, Tod Jacome Received Date/Time: 04/16/2024 12:43 EST Tru LIAO, Jesse [...] 4.5 cm. Cross-section reveals no discrete mass. Shag Truck Driver section submitted in four cassettes. () [facility] Microscopic Description Microscopic examination performed unless gross only specified. Normal [facility] Comment on above: Performed By: #### 4 [id number] #### [facility] [address] [place] [id number] Main OR Intraoperative Recor don 04-17-2024 Main OR Intraoperative Record Main OR Intraoperative Record IntraOp Document Type FT Summary Primary Physician: Jesse Ott MD Finalized Date/Time: 04/17/24 09:01:48 Pt. Name: MILLY SALAZAR/Sex: 1955 Female Med Rec #: [id number] Physician: Jesse Ott MD Financial #: [id number] Pt. Type: A Room/Bed: [place] [address] Admit/Disch: 04/16/24 07:44:47 - 04/16/24 15:00:00 Institution: [...] Case Attendee Dorie JUAREZ, Chicho Ott MD, Jesse Lombardi CST, Raleigh Ward Role Performed Anesthesiologist Surgeon - Primary THERAPY DIRECTOR/SA System Support Developer Time In 04/16/24 09:59:00 04/16/24 10:12:00 04/16/24 09:59:00 Time Out 04/16/24 12:27:00 04/16/24 12:06:00 04/16/24 12:27:00 Procedure HERNIA REPAIR, ROBOT HERNIA REPAIR, ROBOT HERNIA REPAIR, ROBOT ASSISTED(.) ASSISTED(.) ASSISTED(.) Comments Dr. Whitehead supervising, out for lunch at out for lunch [phone] - Dr. Whitehead covering lunch break. Last Modified By: Gary RN, Linda Vega RN, Linda Mercedes RN 04/16/24 12:27:30 04/16/24 12:27:30 04/16/24 12:27:30 Entry 4 Entry 5 Entry 6 Case Attendee Mike CLARKEN, Enedelia Vega RN, Linda Luong RN, Ann Goff Role Performed Scrub - Primary Courtesy Clerk - Primary Staff - Other Time In 04/16/24 09:59:00 04/16/24 09:59:00 04/16/24 09:59:00 Time Out 04/16/24 12:27:00 04/16/24 12:27:00 04/16/24 10:15:00 Procedure HERNIA REPAIR, ROBOT HERNIA REPAIR, ROBOT HERNIA REPAIR, ROBOT ASSISTED(.) ASSISTED(.) ASSISTED(.) Comments out for lunch at out for lunch at room assist, In for [id number] luc relief at [id number] Last Modified By: Linda Vega RN, RN, Leann E Ott RN, Leann E 04/16/24 12:27:30 04/16/24 12:27:30 04/16/24 12:27:30 Entry 7 Case Attendee Nubia Collins CST Performed THERAPY DIRECTOR/SA Time In 04/16/24 11:07:00 Time Out 04/16/24 11:52:00 Procedure HERNIA REPAIR, ROBOT ASSISTED(.) Comments lunch relief Last Modified By: Linda Vega RN 04/16/24 12:27:30 General Comments: Jeronimo Ramos rep also present for this case. ESPINOZA [employer] maintenance Protocols FT Pre-Care Text: Implements protective measures [...] Medication Applicable) PreOp Antibiotic Yes Time Out Dorie JUAREZ, Chicho Given Participants Tru Dunn MD, Maria C Bernard CST, Mike Colin LPN, Jessica D, Linda Vega RN Time Out Complete 04/16/24 [...] HERNIA REPAIR Primary Procedure Yes Primary Surgeon Jesse Ott MD Start 04/16/24 10:21:00 Stop 04/16/24 12:21:00 Anesthesia [...] infection Skin (more content not included)... Normal [facility] Discharge Instructionson Discharge Instructions Discharge Instructions MILLY SALAZAR :1955 Visit Date:04/16/2024 Inpatient Discharge Instructions Your Care Team Admitting Physician - Jesse Ott MD Referring Physician - Jesse Ott MD Reason [...] AM EST With: Jesse Ott MD Where: [facility] [place] [address], [address] [place] [address]- Sunday 8:20 AM EST With: Helen Gay Where: [address] [address]- Sunday 8:00 AM EST With: Where: [facility] [address] [place] [address]- New Follow Up Appointments after Discharge Follow Up with Jesse Ott When: Comments: Appointment has already been scheduled Where: [address], [place] [address] [facility] [address] [place] [phone] Business (1) Medications What How Much When Why Instructions Next Dose New acetaminophen-hydroc odone (Stratford 325 mg-5 mg oral tablet) 1 Tablets By Mouth Every 6 hours as needed for as needed for pain Ventral hernia Pickup at [facility]/pharmacy #[id number] Unchanged ascorbic acid (Vitamin C 500 mg Tab) 1 Tablets By Mouth Every day Unchanged cholecalciferol (Vitamin D3 1000 intl units (25 mcg) Tab) 1 Tablets By Mouth Every day Unchanged hydrochlorothiazide- irbesartan (hydrochlorothiazide -irbesartan 12.5 mg-150 mg Tab) See instructions TAKE 1 TABLET DAILY Unchanged multivitamin with minerals (Multivitamins and Minerals) By Mouth Every day Pharmacy Information [facility]/pharmacy #[id number]: [address], [place] [phone] Allergies penicillin (Rash) Devices Implanted/Removed This Visit [...] these instructions at home: Medicines ??? Take puan-wxp-yzzogru and prescription medicines only as told by your health care provider. ??? Ask your health care provider if the medicine prescribed to you: ? Requires you to avoid driving or using machinery. ? Can cause constipation. You may need to take these actions to prevent or treat constipation: ? Drink enough fluid to keep your urine pale yellow. ? Take prtb-vsg-vmfwmdk or prescription medicines. ? Eat foods that [...] and water are not available, use hand biomedical scientist. ? Change your dressing as told by [...] your inci (more content not included)... Normal [facility] Comment on above: Result Comment: Elec tronically Signed By: Monika DORAN, Jyothi Child\.br\Date and Time Signed: 04/16/24 12:46 EST Inpatient Patient Summaryon 04-16-2024 Inpatient Patient Summary Inpatient Patient Summary [place] [id number] [facility] Clinical Discharge Instructions PERSON INFORMATION Name: MILLY SALAZAR PHYSICIANS Admitting Physician: Jesse Ott MD Attending Physician: Jesse Ott MD PCP: Helen Gay Discharge Diagnosis: Comment: PATIENT EDUCATION INFORMATION Instructions: Laparoscopic Ventral Hernia Repair, Care After Medication Leaflets: Follow up: With: Address: When: Jesse Ott [address], [address] [facility] [place] [address] [place] [phone] Business (1) Comments: Appointment has already been scheduled Type Location Start Finish State GS Post Op 15 [facility] [place] 04/25/2024 11:40 AM 04/25/2024 12:00 PM Confirmed FM Open [facility] 07/09/2024 8:20 AM 07/09/2024 8:40 AM Confirmed FM Medicare Wellness Subsequent [facility] 03/16/2025 8:00 AM 03/16/2025 9:00 AM Confirmed MEDICATION LIST New Medications [id number], [address], [place] [phone], [phone] acetaminophen-hydroc odone (Stratford 325 mg-5 mg oral tablet) 1 Tablets By Mouth every 6 hours as needed as needed for pain. Refills: 0. Medications to Continue with No Changes Other Medications ascorbic acid (Vitamin C 500 mg Tab) 1 Tablets By Mouth every day. cholecalciferol (Vitamin D3 1000 intl units (25 mcg) Tab) 1 Tablets By Mouth every day. hydrochlorothiazide- irbesartan (hydrochlorothiazide -irbesartan 12.5 mg-150 mg Tab) TAKE 1 TABLET DAILY. Refills: 0. multivitamin with minerals (Multivitamins and Minerals) By Mouth every day. Comment: Normal [facility] Main OR PACU I Recordon 04-06 Main OR PACU I Record Main OR PACU I Record PACU Phase I Document Type FT Summary Primary Physician: Jesse Ott MD Finalized Date/Time: 04/16/24 13:09:19 Pt. Name: MILLY SALAZAR/Sex: 1955 Female Med Rec #: [id number] Physician: Jesse Ott MD Financial #: [id number] Pt. Type: A Room/Bed: [facility]/ Admit/Disch: 04/16/24 07:44:47 - Institution: Case [...] By: Evelyn Vargas RN 04/16/24 13:09 Normal [facility] Main OR PACU II Recordon Main OR PACU II Record Main OR PACU II Record PACU Phase II Document Type FT Summary Primary Physician: Jesse Ott MD Finalized Date/Time: 04/16/24 15:13:34 Pt. Name: MILLY SALAZAR /Sex: 1955 Female Med Rec #: [id number] Physician: Jesse Ott MD Financial #: [id number] Pt. Type: A Room/Bed: [place] [address] Admit/Disch: 04/16/24 07:44:47 - Institution: Case Times [...] By: Jyothi Frank RN 04/16/24 15:13 Normal [facility] Main OR Preoperative Recordo n 04-16-2024 Main OR Preoperative Record Main OR Preoperative Record PreOp Document Type FT Summary Primary Physician: Jesse Ott MD Finalized Date/Time: 04/16/24 10:49:10 Pt. Name: MILLY SALAZAR /Sex: 1955 Female Med Rec #: [id number] Physician: Jesse Ott MD Financial #: [id number] Pt. Type: A Room/Bed: [place] [address] Admit/Disch: 04/16/24 07:44:47 - Institution: Case Times [...] By: Linda Vega RN 04/16/24 10:49 Normal [facility] Operative Reporton 4 Operative Report Operative Report Indication for Surgery 68-year-old female with symptomatic ventral hernia here today for robotic assisted laparoscopic repair Preoperative Diagnosis VENTRAL HERNIA Postoperative Diagnosis VENTRAL HERNIA Operation Robotic repair of 5 Demeter ventral hernia with mesh using IPOM technique Surgeon(s) Jesse Ott MD (Surgeon - Primary) System Support Developer Elliot Bolton MD (Docketing Specialist) Chicho Ellis (Anesthesiologist System Support Developer) Estimated Blood Loss 10 cc Urine Output [...] 5 mm incision was made in the Danielsno's point. A Veress needle was inserted the [...] patient tolerated the procedure without difficulty. Normal [facility] Comment on above: Result Comment: Elec tronically Signed By: Tru LIAO, Jesse Villalba.tenzin\Date and Time Signed: 04/16/24 12:36 EST Outpatient Surgery Discharge Instructionon 04-16-2024 Outpatient Surgery Discharge Instruction Outpatient Surgery Discharge Instruction [address] [address] Patient Discharge Instructions PERSON INFORMATION Name: MILLY SALAZAR Date of : 1955 Current Date: 04/16/2024 12:33:42 PHYSICIANS Admitting Physician: Jesse Ott MD Discharge Diagnosis: MILLY SALAZAR has been given the following list of [...] THE NEAREST EMERGENCY ROOM OR CALL 911 I, MILLY SALAZAR, have received the attached patient education materials/instructio ns and have verbalized understanding: May we do a follow up call? Yes No I was present when discharge instructions were given Patient Signature Date Clinican/Nurse Signature Date Follow up: With: Address: When: Jesse Ott [address] [place] [address], [place] [address], [address] [phone] Business (1) Comments: Appointment has already been scheduled Type Location Start Finish State GS Post Op 15 [facility] [place] 04/25/2024 11:40 AM 04/25/2024 12:00 PM Confirmed FM Open [facility] [place] 07/09/2024 8:20 AM 07/09/2024 8:40 AM Confirmed FM Medicare Wellness Subsequent [facility] 03/16/2025 8:00 AM 03/16/2025 9:00 AM Confirmed Pharmacy Information: You may receive a survey from Brenda Gonzalez asking you to rate your care experience. Your feedback is important and will help us understand what we do well and how we can improve the quality of care we provide to you, your loved ones and our community. It???s an honor to serve you. Thank you for choosing [facility] HERE ARE THE MEDICATION CHANGES THAT OCCURRED DURING YOUR HOSPITAL STAY New Medications [id number], [address], [place] [phone], [phone] acetaminophen-hydroc odone (Stratford 325 mg-5 mg oral tablet) 1 Tablets By Mouth every 6 hours as needed as needed for pain. Refills: 0. Medications to Continue with No Changes Other Medications ascorbic acid (Vitamin C 500 mg Tab) 1 Tablets By Mouth every day. cholecalciferol (Vitamin D3 1000 intl units (25 mcg) Tab) 1 Tablets By Mouth every day. hydrochlorothiazide- irbesartan (hydrochlorothiazide -irbesartan 12.5 mg-150 mg Tab) TAKE 1 TABLET [...] these instructions at home: Medicines ??? Take wrzd-nay-kwtjckn and prescription medicines only as told by your health care provider. ??? Ask your health care provider if the medicine prescribed to you: ? Requires you to avoid driving or using machinery. ? Can cause constipation. You may need to take these actions to prevent or treat constipation: ? Drink enough fluid to keep your urine pale yellow. ? Take hwvc-yqr-mpvvpgf or prescription medicines. ? Eat foods that [...] and water are not available, use hand biomedical scientist. ? Jared (more content not included)... Normal [facility] BMPon 04-01-2024 Anion gap [Moles/Vol] 12 mmol/L Normal 6-16 [facility] Comment on above: Performed By: #### 2 [id number] #### [facility] [address] [place] [address] Calcium [Mass/Vol] 9.6 mg/dL Normal 8.9-11.1 [facility] Comment on above: Performed By: #### 2 680231 #### [facility] [address] [place] [address] Chloride [Moles/Vol] 101 mmol/L Normal 101-111 [facility] Comment on above: Performed By: #### 2 [id number] #### [facility] [address] [place] [address] CO2 [Moles/Vol] 31 mmol/L Normal 21-31 [facility] Comment on above: Performed By: #### 2 549606 #### [facility] [address] [place] [address] Creatinine [Mass/Vol] 0.7 mg/dL Normal 0.5-1.3 [facility] Comment on above: Performed By: #### 2 [id number] #### [facility] [address] [place] [address] Glucose [Mass/Vol] 84 mg/dL Normal 55-199 [facility] Comment on above: Performed By: #### 2 [id number] #### [facility] [address] [place] [address] Potassium [Moles/Vol] 3.5 mmol/L Normal 3.5-5.3 [facility] Comment on above: Performed By: #### 2 008425 #### [facility] [address] [place] [address] Sodium [Moles/Vol] 140 mmol/L Normal 135-145 [facility] Comment on above: Performed By: #### 2 075850 #### [facility] [address] [place] [address] Urea nitrogen [Mass/Vol] 15 mg/dL Normal 5-21 [facility] Comment on above: Performed By: #### 2 [id number] #### [facility] [address] [place] [address] Urea nitrogen/Creatinine [Mass ratio] 21 No Units High 10-20 [facility] Comment on above: Performed By: #### 2 761303 #### [facility] [address] [place] [address] CBC w/ Auto Diffon 4 Basophils/100 WBC (Bld) 1.1 % Normal 0.0-2.0 [facility] Comment on above: Performed By: #### 2 712858 #### [facility] [address] [place] [address] Basophils/Leukocytes Auto (Bld) [Pure # fraction] 0.1 E9/L Normal 0.0-0.2 [facility] Comment on above: Performed By: #### 2 510912 #### [facility] [address] [place] [address] Eosinophils (Bld) [#/Vol] 0.4 E9/L Normal 0.0-0.5 [facility] Comment on above: Performed By: #### 2 [id number] #### [facility] [address] [place] [address] Eosinophils/100 WBC (Bld) 5.4 % Normal 0.0-8.0 [facility] Comment on above: Performed By: #### 2 788005 #### [facility] [address] [place] [address] Erythrocyte distribution width (RBC) [Ratio] 13.1 % Normal 10.9-14.2 [facility] Comment on above: Performed By: #### 2 781926 #### [facility] [address] [place] [address] Hematocrit (Bld) [Volume fraction] 40.5 % Normal 34.0-46.0 [facility] Comment on above: Performed By: #### 2 155134 #### [facility] [address] [place] [address] Hemoglobin (Bld) [Mass/Vol] 13.9 g/dL Normal 12.0-16.0 [facility] Comment on above: Performed By: #### 2 584654 #### [facility] [address] [place] [address] Lymphocytes (Bld) [#/Vol] 2.3 E9/L Normal 1.0-4.0 [facility] Comment on above: Performed By: #### 2 610814 #### [facility] [address] [place] [address] Lymphocytes/100 WBC (Bld) 29.3 % Normal 14.0-50.0 [facility] Comment on above: Performed By: #### 2 529109 #### [facility] [address] [place] [address] MCH (RBC) [Entitic mass] 30.6 pg Normal 27.0-34.0 [facility] Comment on above: Performed By: #### 2 093663 #### [facility] [address] [place] [address] MCHC (RBC) [Mass/Vol] 34.4 g/dL Normal 31.4-36.0 [facility] Comment on above: Performed By: #### 2 456648 #### [facility] [address] [place] [address] MCV (RBC) [Entitic vol] 89.1 fL Normal 80.0-100.0 [facility] Comment on above: Performed By: #### 2 088676 #### [facility] [address] [place] [address] Monocytes (Bld) [#/Vol] 0.6 E9/L Normal 0.2-1.0 [facility] Comment on above: Performed By: #### 2 010281 #### [facility] [address] [place] [address] Neutrophils (Bld) [#/Vol] 4.4 E9/L Normal 2.0-7.5 [facility] Comment on above: Performed By: #### 2 298171 #### [facility] [address] [place] [address] Neutrophils/100 WBC (Bld) 56.4 % Normal 36.0-75.0 [facility] Comment on above: Performed By: #### 2 331732 #### [facility] [address] [place] [address] Platelet 325.0 E9/L Normal 150.0-500.0 [facility] Comment on above: Performed By: #### 2 675690 #### [facility] [address] [place] [address] Platelet mean volume (Bld) [Entitic vol] 8.0 fL Normal 6.4-10.8 [facility] Comment on above: Performed By: #### 2 207336 #### [facility] [address] [place] [address] RBC (Bld) [#/Vol] 4.5 E12/L Normal 4.3-5.9 [facility] Comment on above: Performed By: #### 2 587674 #### [facility] [address] [place] [address] WBC corrected for nucl RBC Auto (Bld) [#/Vol] 7.8 E9/L Normal 4.0-11.0 [facility] Comment on above: Performed By: #### 2 129206 #### [facility] [address] [place] [address] CHEMISTRYOrdered By: SYSTEM SYSTEM on 04-01-2024 Anion gap [Moles/Vol] 12 mmol/L Normal 6 - 16 mEq/L R emisol Chem Calcium [Mass/Vol] 9.6 mg/dL Normal 8.9 - 11. 1 mg/dL [facility] Chloride [Moles/Vol] 101 mmol/L Normal 101 - 1 11 mmol/L [facility] CO2 [Moles/Vol] 31 mmol/L Normal 21 - 31 mmol/L [facility] Creatinine [Mass/Vol] 0.7 mg/dL Normal 0.5 - 1.3 mg/dL [facility] eGFR 95 mL/min/1.73 m2 Normal >=59mL/min /1 .73 m2 [facility] Glucose [Mass/Vol] 84 mg/dL Normal 55 - 199 mg/dL [facility] Potassium [Moles/Vol] 3.5 mmol/L Normal 3.5 [...] mGy = . DAP = . Normal [facility] eGFRon 04-01-2024 eGFR 95 mL/min/1.73 m2 Normal >=59 [facility] Comment on above: Performed By: #### 1 [id number] ####[facility] [address] [place] [address] General Surgery Office/Clini c Noteon 03-24-2024 General [...] discussed case with Dr. Eisenberg the patient's SUPERVISOR OF OFFICIALS who will plan to do the hysterectomy and bladder fixation at a later point in time. Ordered: E&M of Est. Patient Moderate 30-39 Min [address] Hospital-based Procedure Pre-Surgery Testing per Anesthesia Portions of this record may have been created with voice recognition artificial intelligence software, specifically Ofelia Feliz, [employer] and or [employer]. Substitutions may have occurred due to the inherent limitations of voice recognition and artificial intelligence software. Follow-up No qualifying data available Problem List/Past Medical History Ongoing Abdominal hernia BMI 35.0-35.9,adult COVID-19 Hypertension Nonsmoker Right upper quadrant pain Screening for hyperlipidemia Ventral hernia Wellness examination Historical No qualifying data Procedure/Surgical History Cataract surgery, Colonoscopy. Medications hydrochlorothiazide- irbesartan 12.5 mg-150 mg Tab, See Instructions Allergies [...] Hep A, unspecified formulation 12/15/1999 Recorded Normal [facility] Comment on above: Result Comment: Elec tronically Signed By: Tru LIAO, Jesse Cheema\Date and Time Signed: 03/24/24 15:[address] [...] Gwyn Jordan MD Transcribed by: YOMI Technologist: KATY Technical Comments GFR (mL/min/1/73m2) >60 Contrast: Isovue 300 Contrast amount in ml's: 100 Rectal Contrast Given? No Oral contrast amount in ml's: 900 Normal [facility] CHEMISTRYOrdered By: SYSTEM SYSTEM on 03-14-2024 Creatinine [Mass/Vol] 0.9 mg/dL Normal 0.5 - 1.3 mg/dL Remisol Chem eGFR 70 mL/min/1.73 m2 Normal >=59mL/min /1 .73 m2 Remisol Chem Creatinineon 03-14-2024 Creatinine [Mass/Vol] 0.9 mg/dL Normal 0.5-1.3 [facility] Comment on above: Performed By: #### 2 [id number] #### [facility] [address] [place] [address] eGFRon 03-14-2024 eGFR 70 mL/min/1.73 m2 Normal >=59 [facility] Comment on above: Performed By: #### 1 [id number] #### [facility] [address] [place] [address] Ambulatory Visit Summaryon 1 05-10-2023 Ambulatory Visit Summary Ambulatory Visit Summary MILLY SALAZAR :1955 Visit Date:03/10/2024 Ambulatory Visit Instructions Your [...] Helen Gay This Is Your Medications List hydrochlorothiazide- irbesartan (hydrochlorothiazide -irbesartan 12.5 mg-150 mg Tab) Procedures Performed Cataract surgery, Colonoscopy. Discharge Vitals Heart Rate (Peripheral) 71 Respiratory Rate 14 Blood Pressure 136/60 Height 161.5 cm Height 64 in Weight 91.5 kg Weight 201.3 lb BMI 35.08 What to do next Scheduled Follow-Up Appointments Sunday 11:00 AM EST With: Where: [facility] Sunday 8:20 AM EST With: Helen Gay Where: [address] [address]- Sunday 8:00 AM EST With: Where: [address] [address]- You Need to Complete the Following HCV Antibody RFX to Quant PCR, Blood, Routine collect, 03/10/24, Order for future visit, Lab Collect, Encounter for hepatitis C screening test for low risk patient, Not Required, Print Label By Order Location Medications What How Much When Instructions Unchanged hydrochlorothiazide- irbesartan (hydrochlorothiazide -irbesartan 12.5 mg-150 mg Tab) See instructions TAKE [...] drinking restricti (more content not included)... Normal [facility] Family Medicine Office/Clini c Noteon 03-10-2024 Family [...] of clutter to prevent tripping and/or falling. [place] Advance Directives reviewed. Documents provided to patient [...] PCP visit. Labs to be completed with [facility]. No concerns with bowel/ bladder. Colonoscopy last [...] of Hepatitis C for people born between 7927-7027. Handout [facility]-Hepatitis C given. Patient to have labs drawn for Hepatitis C screening based on year of . Test ordered and printed as patient requested labs done at [facility]. 3. Immunization declined (Z28.21: Immunization not [...] encouraged to (more content not included)... Normal [facility] Comment on above: Result Comment: Elec tronically Signed By: Helen Gay\.br\Date and Time Signed: 03/10/24 12:59 EST\.br\Electronically Co-Signed By: Mariola Elias\.br\Date and Time Co-Signed: 03/10/24 09:14 EST Ambulatory Visit Summaryon 0 01-28-2024 Ambulatory Visit Summary Ambulatory Visit Summary MILLY SALAZAR :1955 Visit Date:01/28/2024 Ambulatory Visit Instructions Your Diagnosis Wellness examination Hypertension Screening for hyperlipidemia Abdominal hernia BMI 34.0-34.9,adult Obesity (BMI 30.0-34.9) Nonsmoker Your Care Team Attending Physician - Helen Gay Primary Care Physician - Helen Gay This Is Your Medications List hydrochlorothiazide- irbesartan (hydrochlorothiazide -irbesartan 12.5 mg-150 mg Tab) Procedures Performed Cataract surgery, Colonoscopy. Discharge Vitals Temperature (Temporal Artery) 37.2 ?C Heart Rate (Peripheral) 66 Respiratory Rate 16 Blood Pressure 136/84 Height 163 cm Height 64 in Weight 90.7 kg Weight 199.54 lb BMI 34.14 What to do next Scheduled Follow-Up Appointments Sunday 9:30 AM EDT Where: [address] [address]- Medications What How Much When Instructions Unchanged hydrochlorothiazide- irbesartan (hydrochlorothiazide -irbesartan 12.5 mg-150 mg Tab) See instructions TAKE [...] you for choosing us for your care. Normal [facility] Medicine Office/Clini c Noteon 01-28-2024 Family Medicine [...] AMW visit Ordered: Est Preventative 65+ years [address] 2. Hypertension (I10: Essential (primary) hypertension) BP at goal Ordered: Est Preventative 65+ years [address] 3. Screening for hyperlipidemia (Z13.220: Encounter for screening for lipoid disorders) lipid panel order provided to be done at [facility] Ordered: Est Preventative 65+ years [address] 4. Abdominal hernia (K46.9: Unspecified abdominal hernia without obstruction or gangrene) pt has a pretty large abdominal hernia about the size of a baseball. it is even visible through her shirt. will refer to General surgery. she would like to have her hysterectomy and bladder sling first. Ordered: Est Preventative 65+ years [address] 5. BMI 34.0-34.9,adult (Z68.34: Body mass index [BMI] 34.0-34.9, adult) BMI education Ordered: Est Preventative 65+ years [address] 6. Obesity (BMI 30.0-34.9) (E66.9: Obesity, unspecified) see above Ordered: Est Preventative 65+ years [address] 7. Nonsmoker (Z78.9: Other specified health status) continue not smoking Ordered: Est Preventative 65+ years [address] Follow-up No qualifying data available Problem List/Past Medical History Ongoing Abdominal hernia BMI 34.0-34.9,adult COVID-19 Hypertension Nonsmoker Obesity (BMI 30.0-34.9) Right upper quadrant pain Screening for hyperlipidemia Ventral hernia Wellness examination Historical No qualifying data Procedure/Surgical History Cataract surgery, Colonoscopy. Medications hydrochlorothiazide- irbesartan 12.5 mg-150 mg Tab, See Instructions Allergies [...] Hep A, unspecified formulation 12/15/1999 Recorded Normal [facility] Comment on above: Result Comment: Elec tronically Signed By: Helen Gay\.br\Date and Time Signed: 01/28/24 09:45 EDT CBC AUTO DIFFon 04-19-2022 BASO # 0.1 103/ul Normal 0.0-0.1 [place] Comment on above: Performed By: #### D ATCBC #### [facility] [address] [place] [address] [address] Tod Cloeman Basophils/100 WBC (Bld) 1.8 % Normal 0.2-2.0 [place] Comment on above: Performed By: #### D ATCBC #### [facility] [address] [place] [address] [address] Tod Coleman EO # 0.4 103/ul Normal 0.0-0.7 [place] Comment on above: Performed By: #### D ATCBC #### [facility] [address] [place] [address] Dr. Tod Coleman Eosinophils/100 WBC (Bld) 5.5 % Normal 0.9-7.0 [place] Comment on above: Performed By: #### D ATCBC #### [facility] [address] [place] [address] Dr. Tod Coleman Erythrocyte distribution width (RBC) [Ratio] 12.3 % Normal 11.0-15.0 [place] Comment on above: Performed By: #### D ATCBC #### [facility] [address] [place] [address] Dr. Tod Coleman Hematocrit (Bld) [Volume fraction] 39.1 % Normal 36.0-48.0 [place] Comment on above: Performed By: #### D ATCBC #### [facility] [facility] [address] [place] [address] Dr. Tod Coleman Hemoglobin (Bld) [Mass/Vol] 13.3 g/dL Normal 12.0-16.0 [place] Comment on above: Performed By: #### D ATCBC #### [facility] [address] [place] [address] Dr. Tod Coleman IG # 0.02 10e3/ul Normal 0.00-0.03 [place] Comment on above: Performed By: #### D ATCBC #### [facility] [address] [place] [address] Dr. Tod Coleman IG % 0.3 % Normal 0.0-0.5 [facility] Comment on above: Performed By: #### D ATCBC #### [facility] [address] [place] [address] Dr. Tod Coleman LYMPH # 1.8 103/ul Normal 1.2-3.8 [facility] Comment on above: Performed By: #### D ATCBC #### [facility] [address] [place] [address] Dr. Tod Coleman Lymphocytes/100 WBC (Bld) 22.5 % Normal 20.5-60.0 [facility] Comment on above: Performed By: #### D ATCBC #### [facility] [address] [address] [address] Tod Coleman MCH (RBC) [Entitic mass] 30.0 pg Normal 26.7-34.0 [facility] Comment on above: Performed By: #### D ATCBC #### [facility] [address] [place] [address] Dr. Tod Coleman MCHC (RBC) [Mass/Vol] 34.0 g/dL Normal 29.9-35.2 [facility] Comment on above: Performed By: #### D ATCBC #### [facility] [address] [place] [address] Dr. Tod Coleman MCV (RBC) [Entitic vol] 88.1 fL Normal 81.0-99.0 [place] Comment on above: Performed By: #### D ATCBC #### [facility] [address] [place] [address] Dr. Tod Coleman MONO # 0.5 103/ul Normal 0.3-0.8 [facility] Comment on above: Performed By: #### D ATCBC #### [facility] [address] [place] [address] Dr. Tod Coleman Monocytes/100 WBC (Bld) 6.2 % Normal 1.7-12.0 [place] Comment on above: Performed By: #### D ATCBC #### [facility] [address] [place] [address] Dr. Tod Coleman NEUT # 5.0 103/ul Normal 1.4-6.5 [facility] Comment on above: Performed By: #### D ATCBC #### [facility] [address] [place] [address] Dr. Tod Coleman Neutrophils/100 WBC (Bld) 63.7 % Normal 43.0-75.0 [facility] Comment on above: Performed By: #### D ATCBC #### [facility] [address] [place] [address] Dr. Tod Coleman Platelet mean volume (Bld) [Entitic vol] 9.2 fL Critically low 9.5-13.5 [facility] Comment on above: Performed By: #### D ATCBC #### [facility] [address] [address] [address] Tod Coleman PLT 312 103/ul Normal 150-450 [place] Comment on above: Performed By: #### D ATCBC #### [facility] [address] [address] [address] Tod Coleman RBC 4.44 106/ul Normal 4.20-5.40 [place] Comment on above: Performed By: #### D ATCBC #### [facility] [address] [address] [address] Tod Coleman WBC 7.9 103/ul Normal 4.0-11.0 [place] Comment on above: Performed By: #### D ATCBC #### [facility] [address] [address] [address] Tod Coleman ARIN- BMP WITH LIPIDon 2021 Anion gap [Moles/Vol] 13.0 mmol/L Normal [facility] Comment on above: Performed By: #### D ATBMP #### [facility] [address] [address] [address] Tod Coleman Calcium [Mass/Vol] 9.4 mg/dL Normal 8.5-10.1 [facility] Comment on above: Performed By: #### D ATBMP #### [facility] [address] [address] [address] Tod Coleman Chloride [Moles/Vol] 101 mmol/L Normal 98-107 [place] Comment on above: Performed By: #### D ATBMP #### [facility] [address] [address] [address] Tod Coleman Cholesterol [Mass/Vol] 270 mg/dL Critically high <=200 [place] Comment on above: Performed By: #### D ATBMP #### [facility] [address] [address] [address] Tod Coleman Cholesterol in HDL [Mass/Vol] 73 mg/dL Critically high 40-60 [place] Comment on above: Performed By: #### D ATBMP #### [facility] [address] [address] [address] Tod Coleman Cholesterol in LDL [Mass/Vol] 176.8 mg/dL Normal [place] Comment on above: Performed By: #### D ATBMP #### [facility] [address] [address] [address] Tod Coleman CO2 [Moles/Vol] 31.4 mmol/L Normal 21.0-32.0 [facility] Comment on above: Performed By: #### D ATBMP #### [facility] [address] [address] [address] Tod Coleman Creatinine [Mass/Vol] 0.78 mg/dL Normal 0.55-1.02 [place] Comment on above: Performed By: #### D ATBMP #### [facility] [address] [address] [address] Tod Coleman EGFR-AF DUTCH >60 Normal >=60 [facility] Comment on above: Performed By: #### D ATBMP #### [facility] [address] [address] [address] Tod Coleman EGFR-NON AF DUTCH >60 Normal >=60 [place] Comment on above: Performed By: #### D ATBMP #### [facility] [address] [address] [address] Tod Coleman Glucose [Mass/Vol] 99 mg/dL Normal 74-106 [facility] Comment on above: Performed By: #### D ATBMP #### [facility] [address] [address] [address] Tod Coleman HDL NORMAL > or = 60 mg/dl - LOW CARDIOVASCULAR RISK <40 mg/dl - HIGH CARDIOVASCULAR RISK Normal [place] Comment on above: Performed By: #### D ATBMP #### [facility] [address] [address] [address] Tod Coleman LDL CALC NORMAL SEE BELOW Normal [facility] Comment on above: Result Comment: <100 mg/dl OPTIMAL 100 - 129 mg/dl NEAR OR ABOVE OPTIMAL 130 - 159 mg/dl BORDERLINE HIGH 160 - 189 mg/dl HIGH >190 mg/dl VERY HIGH Performed By: #### D ATBMP #### [facility] [address] [address] [address] Tod Coleman Potassium [Moles/Vol] 3.4 mmol/L Critically low 3.5-5.1 [place] Comment on above: Performed By: #### D ATBMP #### [facility] [address] [address] [address] Tod Coleman Sodium [Moles/Vol] 142 mmol/L Normal 136-145 [facility] Comment on above: Performed By: #### D ATBMP #### [facility] [address] [place] [address] Dr. Tod Coleman Triglyceride [Mass/Vol] 101 mg/dL Normal <=150 [place] Comment on above: Performed By: #### D ATBMP #### [facility] [address] [address] [address] Tod Coleman Urea nitrogen [Mass/Vol] 19.0 mg/dL Critically high 7.0-18.0 [place] Comment on above: Performed By: #### D ATBMP #### [facility] [address] [place] [address] Dr. Tod Coleman Urea nitrogen/Creatinine [Mass ratio] 24.4 mg/mg Normal [place] Comment on above: Performed By: #### D ATBMP #### [facility] [address] [place] [address] Dr. Tod Coleman VLDL CALC 20.2 mg/dL Normal [place] Comment on above: Performed By: #### D ATBMP #### [facility] [address] [place] [address] Dr. Tod Coleman MG MAMM SCREEN 3D WILLIAM CADon 04-19-2022 MG MAMM SCREEN 3D WILLIAM CAD Patient: MILLY SALAZAR Exam Date: 04/19/2022 : 1955 Gender:F Ordering : DR. FAINA MENDOZA D.O. Admission #: [id number] Family : Order #: [id number] CLICK HERE TO VIEW EXAM RADIOLOGY REPORT PROCEDURE: MAMMOGRAM SCREENING 3D BILATERAL CAD COMPARISON: MG MAMM SCREEN 3D WILLIAM CAD, 04/06/2021. MG MAMM SCREEN WILLIAM W CAD, 03/26/2020. INDICATIONS: Screening mammography Calculator Name NCI Breast Cancer Risk Assessment Tool 5 Year Breast Cancer Risk 1.20% Lifetime Breast Cancer Risk 4.70% Personal Breast Cancer No Personal Ovarian Cancer No Treatments None Family Cancers None LOCATION: [facility] BREAST COMPOSITION: Scattered areas fibroglandular density. FINDINGS: [...] PALPABLE LUMP SHOULD BE BIOPSIED. Dictated by: Gianna Perez M.D. on 04/19/2022 at 14:38 Approved by: Gianna Perez M.D. on 04/19/2022 at 14:49 Normal [place] XR DEXA BONE DENSITYon 04-19 XR DEXA [...] - Moderate Fracture Risk Electronically authenticated by: GIANNA PEREZ Date: 2022-04-19 08:59 Normal [place] Vital Signs Date Time Vital Sign Value Performing Clinician Hector joseph 06-07-2024 13:54-0500 Diastolic blood pressure 101 mm[Hg] Rakan Paz [facility] 06-07-2024 13:54-0500 Systolic blood pressure 181 mm[Hg] Rakan Paz [facility] 06-07-2024 12:21-0500 Body temperature 98.6 [degF] Rakan Paz [facility] 06-07-2024 12:21-0500 Diastolic blood pressure 103 mm[Hg] Rakan Paz [facility] 06-07-2024 12:21-0500 Heart rate 102 /min Rakan Paz [facility] 06-07-2024 12:21-0500 Respiratory rate 20 /min Rakan Paz [facility] 06-07-2024 12:21-0500 SaO2% (BldA) [Mass fraction] 96 % Rakan Paz [facility] 06-07-2024 12:21-0500 Systolic blood pressure 190 mm[Hg] Rakan Paz [facility] 05-05-2024 10:13-0500 Body mass index (BMI) [Ratio] 33.19 kg/m2 Faina Nataprawira DO Work Phone: [facility] 05-05-2024 10:13-0500 Body weight 89.09 kg Faina Nataprawira DO Work Phone: [facility] 05-05-2024 10:13-0500 Diastolic blood pressure 104 mm[Hg] Faina Nataprawira DO Work Phone: [facility] 05-05-2024 10:13-0500 Systolic blood pressure 186 mm[Hg] Faina Nataprawira DO Work Phone: [facility] 04-01-2024 14:37-0500 Diastolic blood pressure 102 mm[Hg] Jesse Ott [facility] 04-01-2024 14:37-0500 Heart rate 66 /min Jesse Mourany [facility] 04-01-2024 14:37-0500 Mean blood pressure 128 mm[Hg] Jesse Mourany [facility] 04-01-2024 14:37-0500 Systolic blood pressure 178 mm[Hg] Jesse Mourany [facility] 04-01-2024 14:36-0500 Heart rate 76 /min Jesse Mourany [facility] 04-01-2024 14:36-0500 SaO2% (BldA) [Mass fraction] 99 % Jesse Mourany [facility] 04-01-2024 14:36-0500 Body temperature 97.88 [degF] Jesse Mourany [facility] 04-01-2024 14:35-0500 Blood Pressure Location Jesse Mourany [facility] 04-01-2024 14:35-0500 Diastolic blood pressure 102 mm[Hg] Jesse Mourany [facility] 04-01-2024 14:35-0500 Mean blood pressure 126 mm[Hg] Jesse Mourany [facility] 04-01-2024 14:35-0500 Systolic blood pressure 175 mm[Hg] Jesse Mourany [facility] 04-01-2024 14:34-0500 Respiratory rate 16 /min Jesse Mourany [facility] 03-03-2024 14:08-0400 Blood Pressure Location Jesse Mourany [facility] [place] 03-03-2024 14:08-0400 Diastolic blood pressure 92 mm[Hg] Jesse Ott [facility] 03-03-2024 14:08-0400 Heart rate 76 /min Jesse Ott [facility] 03-03-2024 14:08-0400 Respiratory rate 16 /min Jesse Ott [facility] 03-03-2024 14:08-0400 Systolic blood pressure 193 mm[Hg] Jesse Ott [facility] Encounters Encounter Date Encounter Type Care Provider Facility Start: 03-16-2025 ambulatory Helen L James Facility: [facility] Start: 07-09-2024 End: 07-09-2024 ambulatory Helen L James Facility: [facility] Start: 06-11-2024 End: 06-11-2024 Lab Drop off Helen L James [facility] Start: 06-11-2024 End: 06-11-2024 ambulatory Helen L James Facility: [facility] Start: 06-09-2024 End: 06-09-2024 Telephone encounter Faina Mendoza DO Work Phone: [facility] Start: 06-07-2024 End: 06-07-2024 Emergency department patient visit Rakan Paz [facility] Start: 05-05-2024 End: 05-05-2024 Patient encounter procedure Faina Mendoza DO Work Phone: [facility] Comment on above: Encounter for gyneco logical examination (general) (routine) with abnormal findings (Primary Dx); Cystocele, midline; Rectocele; Screening for malignant neoplasm of cervix; Encounter for screening for human papillomavirus (HPV); Other screening mammogram; Postmenopausal Start: 05-05-2024 End: 05-05-2024 Patient encounter status Faina Mendoza DO Work Phone: [facility] Work Phone: Start: 05-05-2024 End: 05-05-2024 ambulatory FAINA MENDOZA Not Available Start: 04-25-2024 End: 04-25-2024 ambulatory Jesse Zuletay Facility:[facility] Start: 04-25-2024 End: 04-25-2024 Patient encounter procedure Jesse Zuletay [facility] Start: 04-16-2024 End: 04-16-2024 ambulatory Jesse Zuletay Facility:[facility] Start: 04-01-2024 End: 04-01-2024 ambulatory Jesse Zuletay Facility:[facility] Start: 04-01-2024 End: 04-01-2024 Patient encounter procedure Jesse Zuletay [facility] Start: 03-24-2024 End: 03-24-2024 ambulatory Jesse Zuletay Facility:[facility] Start: 03-24-2024 End: 03-24-2024 Patient encounter procedure Jesse Zuletay [facility] Start: 03-18-2024 End: 03-18-2024 ambulatory Jesse Zuletay Facility:[facility] Start: 03-18-2024 End: 03-18-2024 Patient encounter procedure Jesse Zuletay [facility] Start: 03-14-2024 End: 03-14-2024 ambulatory MD Ambrose Vigil Facility:[facility] Start: 03-14-2024 End: 03-14-2024 Patient encounter procedure Ambrose Vigil [facility] Start: 03-10-2024 End: 03-10-2024 ambulatory Helen L James [facility]: [facility] Start: 03-03-2024 End: 03-03-2024 ambulatory Jesse Ott Facility: [place] Start: 03-03-2024 End: 03-03-2024 Patient encounter procedure Jesse Ott [facility] [place] Start: 02-07-2024 ambulatory Helen James Facility:[facility] Start: 02-07-2024 ambulatory Helen James Facility:[facility] Start: 01-28-2024 End: 01-28-2024 ambulatory Helen L James Facility:[facility] Start: 10-09-2023 End: 10-09-2023 ambulatory VIRIDIANA COLBY Not Available Start: 04-19-2022 End: 04-20-[address] NONE LISTED REQUEST Facility:[facility] Procedures Date Procedure Procedure Detail Performing Clinician Start: 04-16-2024 Herniated structure (morphologic abnormality) Jesse Ott Cataract surgery Jesse love Colonoscopy Jesse Ott Comment on above: 2016 Plan of Treatment Date Care Activity Detail Author Start: 07-20-2025 End: 07-20-2025 Patient encounter procedure 07/20/2025 8:30 AM EDT Office Visit [facility] [address] [facility] [address] [address] Faina Mendoza, [address] [address] [facility] Start: 05-06-2025 End: 05-06-2025 Patient encounter procedure 05/06/2025 8:30 AM EST Office Visit [facility] [address] [facility] [address] [address] Faina Mendoza, DO [address] [address] [facility] Start: 05-05-2024 End: 06-25-2025 DBT Breast - bilateral screening Bilateral screening mammogram with tomosynthesis Imaging Routine Other screening mammogram Expected: 05/05/2024, Expires: 06/25/2025 [facility] Comment on above: Expected: 05/05/2024 , Expires: 06/25/2025 Start: 05-05-2024 End: 04-24-2025 DXA Skeletal system Views for bone density DEXA bone density Imaging Routine Postmenopausal Expected: 05/05/2024, Expires: 04/24/2025 [facility] Comment on above: Expected: 05/05/2024 , Expires: 04/24/2025 THINPREP TIS PAP AND HPV MRNA E6/E7 WITH REFLEX TO HPV 16,18/45 THINPREP TIS PAP AND HPV MRNA E6/E7 WITH REFLEX TO HPV 16,18/45 Pathology and Cytology Routine Screening for malignant neoplasm of cervix Encounter for screening for human papillomavirus (HPV) Ordered: 05/05/2024 [facility] Work Phone: Comment on above: Ordered: 05/05/2024 Immunizations Immunization Date Immunization Notes Care Provider Fa cili 04-19-2022 influenza virus vaccine, unspecified formulation Jesse Ott [facility] 02-25-2020 influenza virus vaccine, unspecified formulation Jesse Ott [facility] 02-25-2019 influenza virus vaccine, unspecified formulation Jesse Ott [facility] 03-22-2018 influenza virus vaccine, unspecified formulation Jesse Ott [facility] 06-22-2000 Hep A, unspecified formulation Jesse Ott [facility] 06-22-2000 hepatitis B vaccine, adult dosage Jesse Pascalurany [facility] 01-20-2000 hepatitis B vaccine, adult dosage Jesse Mourany [facility] 12-15-1999 Hep A, unspecified formulation Jesse Mourany [facility] 12-15-1999 hepatitis B vaccine, adult dosage Jesse Mourany [facility] 12-15-1999 Td(adult) unspecifie d formulation Jesse Zuletay [facility] NEGATED: Highlighted row has not occurred!03-10-2024 influenza virus vaccine, unspecified formulation Ambrose Schraderbraden [facility] Payers Date Payer Category Payer Unknown [id number] 2022 Medicare MEDICARE [id number] 2022 [facility] [id number] 2022 Medicare [id number] 2022 Private Health Insurance [id number] 2022 Unknown [id number] 1959 Self-pay [id number] 1959 Unknown [id number] 1955 Unknown [id number] 2.16.840.1.493758.3.579.2 .593 1955 Unknown [id number] 2.16.840.1.414876.3.579.2 .727 1955 Unknown [id number] 2.16.840.1.051143.3.579.2 .727 1955 Unknown [id number] 2.16.840.1.943966.3.579.2 .727 1955 Unknown [id number] 2.16.840.1.094348.3.579.2 .727 1955 Unknown [id number] 2.16.840.1.629375.3.579.2 .727 1955 Unknown [id number] 2.16.840.1.069408.3.579.2 .1259 1955 Unknown [id number] 2.16.840.1.033088.3.579.2 .1259 1955 Unknown [id number] 2.16.840.1.740849.3.579.2 .727 1955 Unknown [id number] 2.16.840.1.043985.3.579.2 .727 1957 Unknown [id number] 2.16.840.1.872860.3.579.2 .727 1957 Unknown [id number] 2.16.840.1.705566.3.579.2 .727 1957 Unknown [id number] 2.16.840.1.457094.3.579.2 .727 1957 Unknown [id number] 2.16.840.1.973894.3.579.2 .727 1957 Unknown [id number] 2.16.840.1.854242.3.579.2 .727 1957 Unknown [id number] 2.16.840.1.829630.3.579.2 .727 1957 Unknown [id number] 2.16.840.1.932384.3.579.2 .727 1955 Unknown [id number] 2.16.840.1.948153.3.579.2 .727 1955 Unknown [id number] 2.16.840.1.952408.3.579.2 .727 Unknown [id number] 2.16.840.1.728303.3.579.2 .593 Unknown [id number] 2.16.840.1.097496.3.579.2 .593 Social History Date Type Detail Facility Start: 03-03-2024 End: 04-25-2024 Tobacco smoking status Never smoked tobacco (finding) [facility] Comment on above: denies use. Tobacco smoking status Never [facility] Start: 05-05-2024 Sex Assigned At Female F [facility] Start: 05-02-2023 Tobacco use and exposure Smokeless tobacco non-user [facility] Start: 05-05-2024 Alcoholic beverage intake Current drinker of alcohol (finding) [facility] Start: 05-05-2024 History of Social function [facility] How often to you hav e a drink containing alcohol? Monthly or less [facility] How many standard drinks containing alcohol do you have on a typical day? 1 or 2 [facility] How often do you hav e 6 or more drinks on 1 occasion? Never [facility] Start: 05-03-2023 Alcohol Comment caffeine intak e : 1-2 cups per day coffee [facility] Start: 1955 Sex assigned at Not on file N [facility] Start: 07-19-2022 Gender identity Identifies as female gender (finding) [facility] Medical Equipment Procedure Code Equipment Code Equipment Origin al Text Equipment Identifier Dates HERNIA REPAIR, Jesse Leonard MD 04/16/24 Non Biological Abdomen FDA Start: 04-16-2024 HERNIA REPAIR, Jesse Leonard MD 04/16/24 Non Biological Abdomen FDA Start: 04-16-2024 HERNIA REPAIR, Jesse Leonard MD 04/16/24 Non Biological Abdomen FDA Start: 04-16-2024 Functional Status Date Assessment Result Facility 06-07-2024 Functional Status N/A [facility] 04-01-2024 Functional Status No [facility] 03-03-2024 Functional Status N/A [facility] [place] Clinical Notes 03-03-2024 to 06-11-2024 Telephone Encounter - Vinicius Ferro - 06/09/2024 12:07 PM ESTTelephone Encounter - Vinicius Ferro - 06/09/2024 12:07 PM ESTTelephone Encounter - Vinicius Ferro - 06/09/2024 11:39 AM ESTRadiologyLaboratory Note Date & Type Note Facility 06-11-2024 Note Patient Education Endocrinology Hypothyroidism Hypothyroidism is when the thyroid gland does not make enough of certain hormones. This is called an underactive thyroid. The thyroid gland is a small gland located in the lower front part of the neck, just in front of the windpipe (trachea). This gland makes hormones that help control how the body uses food for energy (metabolism) as well as how the heart and brain function. These hormones also play a role in keeping your bones strong. When the thyroid is underactive, it produces too little of the hormones thyroxine (T4) and triiodothyronine (T3). What are the causes? This condition may be caused by: ??? Massiel's disease. This is a disease in which the body's disease-fighting system (immune system) attacks the thyroid gland. This is the most common cause. ??? Viral infections. ??? . ??? Certain medicines. ??? defects. ??? Problems with a gland in the center of the brain (pituitary gland). ??? Lack of enough iodine in the diet. Other causes may include: ??? Past radiation treatments to the head or neck for cancer. ??? Past treatment with radioactive iodine. ??? Past exposure to radiation in the environment. ??? Past surgical removal of part or all of the thyroid. What increases the risk? You are more likely to develop this condition if: ??? You are female. ??? You have a family history of thyroid conditions. ??? You use a medicine called lithium. ??? You take medicines that affect the immune system (immunosuppressants). What are the signs or symptoms? Common symptoms of this condition include: ??? Not being able to tolerate cold. ??? Feeling as though you have no energy (lethargy). ??? Lack of appetite. ??? Constipation. ??? Sadness or depression. ??? Weight gain that is not explained by a change in diet or exercise habits. ??? Menstrual irregularity. ??? Dry skin, coarse hair, or brittle nails. Other symptoms may include: ??? Muscle pain. ??? Slowing of thought processes. ??? Poor memory. How is this diagnosed? This condition may be diagnosed based on: ??? Your symptoms, your medical history, and a physical exam. ??? Blood tests. You may also have imaging tests, such as an ultrasound or MRI. How is this treated? This condition is treated with medicine that replaces the thyroid hormones that your body does not make. After you begin treatment, it may take several weeks for symptoms to go away. Follow these instructions at home: ??? Take ijho-jys-mjrxcey and prescription medicines only as told by your health care provider. ??? If you start taking any new medicines, tell your health care provider. ??? Keep all follow-up visits as told by your health care provider. This is important. ? As your condition improves, your dosage of thyroid hormone medicine may change. ? You will need to have blood tests regularly so that your health care provider can monitor your condition. Contact a health care provider if: ??? Your symptoms do not get better with treatment. ??? You are taking thyroid hormone replacement medicine and you: ? Sweat a lot. ? Have tremors. ? Feel anxious. ? Lose weight rapidly. ? Cannot tolerate heat. ? Have emotional swings. ? Have diarrhea. ? Feel weak. Get help right away if: ??? You have chest pain. ??? You have an irregular heartbeat. ??? You have a rapid heartbeat. ??? You have difficulty breathing. These symptoms may be an emergency. Get help right away. Call 911. ??? Do not wait to see if the symptoms will go away. ??? Do not drive yourself to the hospital. Summary ??? Hypothyroidism is when the thyroid gland does not make enough of certain hormones (it is underactive). ??? When the thyroid is underactive, it produces too little of the hormones thyroxine (T4) and triiodothyronine (T3). ??? The most common cause is Massiel's disease, a disease in which the body's disease-fighting system (immune system) attacks the thyroid gland. The condition can also be caused by viral infections, medicine, , or past radiation treatment to the head or neck. ??? Symptoms may include weight gain, dry skin, constipation, feeling as though you do not have energy, and not being able to tolerate cold. ??? This condition is treated with medicine to replace the thyroid hormones that your body does not make. This information is not intended to replace advice given to you by your health care provider. Make sure you discuss any questions you have with your health care provider. Document Revised: 04/25/2022 Document Reviewed: 04/25/2022 [employer] Patient Education ? 2023 [email or web address]. [facility] 06-09-2024 Telephone encounter Note scheduled [facility] 06-09-2024 Miscellaneous Notes scheduled LVM to return call to r/s 05/06 appt documented in this encounter [facility] 06-09-2024 Telephone encounter Note LVM to return call to r/s 05/06 appt [facility] 06-07-2024 Hospital Discharg e instructions Patient Education 06/07/2024 13:55:29 Hypertension, Adult Hypertension, Adult High blood pressure (hypertension) is when the force of blood pumping through the arteries is too strong. The arteries are the blood vessels that carry blood from the heart throughout the body. Hypertension forces the heart to work harder to pump blood and may cause arteries to become narrow or stiff. Untreated or uncontrolled hypertension can lead to a heart attack, heart failure, a stroke, kidney disease, and other problems. A blood pressure reading consists of a higher number over a lower number. Ideally, your blood pressure should be below 120/80. The first ( top ) number is called the systolic pressure. It is a measure of the pressure in your arteries as your heart beats. The second ( bottom ) number is called the diastolic pressure. It is a measure of the pressure in your arteries as the heart relaxes. What are the causes? The exact cause of this condition is not known. There are some conditions that result in high blood pressure. What increases the risk? Certain factors may make you more likely to develop high blood pressure. Some of these risk factors are under your control, including: Smoking. Not getting enough exercise or physical activity. Being overweight. Having too much fat, sugar, calories, or salt (sodium) in your diet. Drinking too much alcohol. Other risk factors include: Having a personal history of heart disease, diabetes, high cholesterol, or kidney disease. Stress. Having a family history of high blood pressure and high cholesterol. Having obstructive sleep apnea. Age. The risk increases with age. What are the signs or symptoms? High blood pressure may not cause symptoms. Very high blood pressure (hypertensive crisis) may cause: Headache. Fast or irregular heartbeats (palpitations). Shortness of breath. Nosebleed. Nausea and vomiting. Vision changes. Severe chest pain, dizziness, and seizures. How is this diagnosed? This condition is diagnosed by measuring your blood pressure while you are seated, with your arm resting on a flat surface, your legs uncrossed, and your feet flat on the floor. The cuff of the blood pressure monitor will be placed directly against the skin of your upper arm at the level of your heart. Blood pressure should be measured at least twice using the same arm. Certain conditions can cause a difference in blood pressure between your right and left arms. If you have a high blood pressure reading during one visit or you have normal blood pressure with other risk factors, you may be asked to: Return on a different day to have your blood pressure checked again. Monitor your blood pressure at home for 1 week or longer. If you are diagnosed with hypertension, you may have other blood or imaging tests to help your health care provider understand your overall risk for other conditions. How is this treated? This condition is treated by making healthy lifestyle changes, such as eating healthy foods, exercising more, and reducing your alcohol intake. You may be referred for counseling on a healthy diet and physical activity. Your health care provider may prescribe medicine if lifestyle changes are not enough to get your blood pressure under control and if: Your systolic blood pressure is above 130. Your diastolic blood pressure is above 80. Your personal target blood pressure may vary depending on your medical conditions, your age, and other factors. Follow these instructions at home: Eating and drinking Eat a diet that is high in fiber and potassium, and low in sodium, added sugar, and fat. An example of this eating plan is called the DASH diet. DASH stands for Dietary Approaches to Stop Hypertension. To eat this way: ?Eat plenty of fresh fruits and vegetables. Try to fill one half of your plate at each meal with fruits and vegetables. ?Eat whole grains, such as whole-wheat pasta, brown rice, or whole-grain bread. Fill about one fourth of your plate with whole grains. ?Eat or drink low-fat dairy products, such as skim milk or low-fat yogurt. ?Avoid fatty cuts of meat, processed or cured meats, and poultry with skin. Fill about one fourth of your plate with lean proteins, such as fish, chicken without skin, beans, eggs, or tofu. ?Avoid pre-made and processed foods. These tend to be higher in sodium, added sugar, and fat. Reduce your daily sodium intake. Many people with hypertension should eat less than 1,500 mg of sodium a day. Do not drink alcohol if: ?Your health care provider tells you not to drink. ?You are , may be , or are planning to become . If you drink alcohol: ?Limit how much you have to: ?0 1 drink a day for women. ?0 2 drinks a day for men. ?Know how much alcohol is in your drink. In the [place] one drink equals one 12 oz bottle of beer (355 mL), one 5 oz glass of wine (148 mL), or one 1 oz glass of hard liquor (44 mL). Lifestyle Work with your health care provider to maintain a healthy body weight or to lose weight. Ask what an ideal weight is for you. Get at least 30 minutes of exercise that causes your heart to beat faster (aerobic exercise) most days of the week. Activities may include walking, swimming, or biking. Include exercise to strengthen your muscles (resistance exercise), such as Pilates or lifting weights, as part of your weekly exercise routine. Try to do these types of exercises for 30 minutes at least 3 days a week. Do not use any products that contain nicotine or tobacco. These products include cigarettes, chewing tobacco, and vaping devices, such as e-cigarettes. If you need help quitting, ask your health care provider. Monitor your blood pressure at home as told by your health care provider. Keep all follow-up visits. This is important. Medicines Take yhwl-oaw-bruqhod and prescription medicines only as told by your health care provider. Follow directions carefully. Blood pressure medicines must be taken as prescribed. Do not skip doses of blood pressure medicine. Doing this puts you at risk for problems and can make the medicine less effective. Ask your health care provider about side effects or reactions to medicines that you should watch for. Contact a health care provider if you: Think you are having a reaction to a medicine you are taking. Have headaches that keep coming back (recurring). Feel dizzy. Have swelling in your ankles. Have trouble with your vision. Get help right away if you: Develop a severe headache or confusion. Have unusual weakness or numbness. Feel faint. Have severe pain in your chest or abdomen. Vomit repeatedly. Have trouble breathing. These symptoms may be an emergency. Get help right away. Call 911. Do not wait to see if the symptoms will go away. Do not drive yourself to the hospital. Summary Hypertension is when the force of blood pumping through your arteries is too strong. If this condition is not controlled, it may put you at risk for serious complications. Your personal target blood pressure may vary depending on your medical conditions, your age, and other factors. For most people, a normal blood pressure is less than 120/80. Hypertension is treated with lifestyle changes, medicines, or a combination of both. Lifestyle changes include losing weight, eating a healthy, low-sodium diet, exercising more, and limiting alcohol. This information is not intended to replace advice given to you by your health care provider. Make sure you discuss any questions you have with your health care provider. Document Revised: 02/28/2022 Document Reviewed: 02/28/2022 [employer] Patient Education 2023 [email or web address]. Follow Up Care 06/07/2024 12:15:59 With:Helen Ramirez Address: [address] [place], [place] [address] Business (1) When:06/10/2024 13:50:27 [facility] 06-07-2024 Note ED Patient Education Note Cardiovascular Hypertension, Adult High blood pressure (hypertension) is when the force of blood pumping through the arteries is too strong. The arteries are the blood vessels that carry blood from the heart throughout the body. Hypertension forces the heart to work harder to pump blood and may cause arteries to become narrow or stiff. Untreated or uncontrolled hypertension can lead to a heart attack, heart failure, a stroke, kidney disease, and other problems. A blood pressure reading consists of a higher number over a lower number. Ideally, your blood pressure should be below 120/80. The first ( top ) number is called the systolic pressure. It is a measure of the pressure in your arteries as your heart beats. The second ( bottom ) number is called the diastolic pressure. It is a measure of the pressure in your arteries as the heart relaxes. What are the causes? The exact cause of this condition is not known. There are some conditions that result in high blood pressure. What increases the risk? Certain factors may make you more likely to develop high blood pressure. Some of these risk factors are under your control, including: ??? Smoking. ??? Not getting enough exercise or physical activity. ??? Being overweight. ??? Having too much fat, sugar, calories, or salt (sodium) in your diet. ??? Drinking too much alcohol. Other risk factors include: ??? Having a personal history of heart disease, diabetes, high cholesterol, or kidney disease. ??? Stress. ??? Having a family history of high blood pressure and high cholesterol. ??? Having obstructive sleep apnea. ??? Age. The risk increases with age. What are the signs or symptoms? High blood pressure may not cause symptoms. Very high blood pressure (hypertensive crisis) may cause: ??? Headache. ??? Fast or irregular heartbeats (palpitations). ??? Shortness of breath. ??? Nosebleed. ??? Nausea and vomiting. ??? Vision changes. ??? Severe chest pain, dizziness, and seizures. How is this diagnosed? This condition is diagnosed by measuring your blood pressure while you are seated, with your arm resting on a flat surface, your legs uncrossed, and your feet flat on the floor. The cuff of the blood pressure monitor will be placed directly against the skin of your upper arm at the level of your heart. Blood pressure should be measured at least twice using the same arm. Certain conditions can cause a difference in blood pressure between your right and left arms. If you have a high blood pressure reading during one visit or you have normal blood pressure with other risk factors, you may be asked to: ??? Return on a different day to have your blood pressure checked again. ??? Monitor your blood pressure at home for 1 week or longer. If you are diagnosed with hypertension, you may have other blood or imaging tests to help your health care provider understand your overall risk for other conditions. How is this treated? This condition is treated by making healthy lifestyle changes, such as eating healthy foods, exercising more, and reducing your alcohol intake. You may be referred for counseling on a healthy diet and physical activity. Your health care provider may prescribe medicine if lifestyle changes are not enough to get your blood pressure under control and if: ??? Your systolic blood pressure is above 130. ??? Your diastolic blood pressure is above 80. Your personal target blood pressure may vary depending on your medical conditions, your age, and other factors. Follow these instructions at home: Eating and drinking ??? Eat a diet that is high in fiber and potassium, and low in sodium, added sugar, and fat. An example of this eating plan is called the DASH diet. DASH stands for Dietary Approaches to Stop Hypertension. To eat this way: ? Eat plenty of fresh fruits and vegetables. Try to fill one half of your plate at each meal with fruits and vegetables. ? Eat whole grains, such as whole-wheat pasta, brown rice, or whole-grain bread. Fill about one fourth of your plate with whole grains. ? Eat or drink low-fat dairy products, such as skim milk or low-fat yogurt. ? Avoid fatty cuts of meat, processed or cured meats, and poultry with skin. Fill about one fourth of your plate with lean proteins, such as fish, chicken without skin, beans, eggs, or tofu. ? Avoid pre-made and processed foods. These tend to be higher in sodium, added sugar, and fat. ??? Reduce your daily sodium intake. Many people with hypertension should eat less than 1,500 mg of sodium a day. ??? Do not drink alcohol if: ? Your health care provider tells you not to drink. ? You are , may be , or are planning to become . ??? If you drink alcohol: ? Limit how much you have to: ? 0?1 drink a day for women. ? 0?2 drinks a day for men. ? Know how much alcohol is in your drink. In the [place] one drink equals one 12 oz (more content not included)... [facility] 05-05-2024 History of Presen t illness Narrative Images from the original note were not included. Faina Mendoza DO Obstetrics and Gynecology Name: Milly Salazar Date/Time of Service:05/05/2024 10:38 AM :1955 Age: 68 y.o. Subjective Milly Salazar is a 68 y.o. female who is here for a routine exam. Gynecologic Exam (Last mammogram 04/23/23 Birads 2 neg, send order to [facility]/Last Dexa scan 04/29/22- send order to [facility]?/Last pap 04/12/22 neg/Colonoscopy: 2018, normal/Pt states she would like to continue discussion about bladder surgery./Pt does not need refills. Pt BP elevated last took BP pill at 4am. Will alert MJN. BP taken twice. ) Control Contraception: post menopausal status. LMP: No LMP recorded. Patient is postmenopausal. Last Mammogram Results for orders placed in visit on 04/12/22 Bilateral screening mammogram Narrative PERFORMED AT [facility] LOCATION:[id number] Bi-RAD 2 Current Outpatient Medications on File Prior to Visit Medication Sig Dispense Refill irbesartan-hydroCHLOROthiazide (Avalide) 150-12.5 MG tablet No current facility-administered medications on file prior to visit. Past Medical History: Diagnosis Date Cataract Dry eyes Hypertension (CMS/HCC) Past Surgical History: Procedure Laterality Date CATARACT EXTRACTION Bilateral 2017 Dr. Colby EYE SURGERY William cataract surgery HERNIA REPAIR 04/16/2024 VAGINAL DELIVERY x2 No family history on file. Social History Tobacco Use Smoking status: Never Smokeless tobacco: Never Vaping Use Vaping status: Never Used Substance Use Topics Alcohol use: Yes Alcohol/week: 1.0 - 2.0 standard drink of alcohol Types: 1 - 2 Standard drinks or equivalent per week Comment: caffeine intake : 1-2 cups per day coffee Drug use: Never OB History Para Term AB Living 2 2 2 SAB IAB Ectopic Multiple Live Births # Outcome Date GA Lbr Phillip/2nd Weight Sex Type Anes PTL Lv 2 Para 1 Para Allergies Allergen Reactions Amoxicillin Unknown Penicillin G Rash Review of Systems Constitutional: Negative. Respiratory: Negative. Cardiovascular: Negative. Gastrointestinal: Negative. Musculoskeletal: Negative. Skin: Negative. Neurological: Negative. Endocrine: Negative. Objective BP (!) 186/104 Wt 196 lb 6.4 oz BMI 33.19 kg/m Body mass index is 33.19 kg/m . Physical Exam Genitourinary: Urethral meatus normal. No lesions in the vagina. Genitourinary Comments: Valsalva revealed stage II-III cystocele, stage I-II rectocele Right Labia: No lesions. Left Labia: No lesions. No vaginal discharge. Anterior and posterior vaginal prolapse present. Moderate vaginal atrophy present. Right Adnexa: not tender and no mass present. Left Adnexa: not tender and no mass present. No cervical lesion. Uterus is not tender. Uterus is anteverted. No urethral stress urinary incontinence with cough stress test present. Bladder is not tender. Rectum: No rectovaginal septum nodularity. Breasts: Right: No mass, nipple discharge, skin change or tenderness. Left: No mass, nipple discharge, skin change or tenderness. HENT: Head: Normocephalic and atraumatic. Mouth/Throat: Mouth: Mucous membranes are moist. Cardiovascular: Rate and Rhythm: Normal rate and regular rhythm. Pulmonary: Effort: Pulmonary effort is normal. Breath sounds: Normal breath sounds. Abdominal: General: Bowel sounds are normal. Palpations: Abdomen is soft. Musculoskeletal: General: No tenderness. Cervical back: Neck supple. Neurological: Mental Status: She is alert and oriented to person, place, and time. Skin: General: Skin is warm and dry. Psychiatric: Mood and Affect: Mood normal. Vitals and nursing note reviewed. Assessment/Plan 1. Encounter for gynecological examination (general) (routine) with abnormal findings (Primary) Breast and pelvic exam performed. Discussed findings. Patient to contact the office with any changes to her gynecological condition. 2. Cystocele, midline Discussed findings, stable, continue to monitor. Stressed the importance of complete bladder emptying and avoiding long periods between voiding. Patient voiced understanding. Discussed treatment/management options: pessary use vs. Surgical treatment. Patient voiced interest in continue observation at this time 3. Rectocele Stable, continue to observe. Stressed the importance of avoiding constipation to avoid worsening of her condition 4. Screening for malignant neoplasm of cervix Cervical cytology and co-testing performed. Patient to contact the office for results - THINPREP TIS PAP AND HPV MRNA E6/E7 WITH REFLEX TO HPV 16,18/45 5. Encounter for screening for human papillomavirus (HPV) - THINPREP TIS PAP AND HPV MRNA E6/E7 WITH REFLEX TO HPV 16,18/45 6. Other screening mammogram Mammogram order sent. Patient to schedule appointment - Bilateral screening mammogram with tomosynthesis; Future 7. Postmenopausal DEXA scan order sent. Patient to schedule appointment. Will notify patient of result - DEXA bone density; Future ICD-10-CM 1. Encounter for gynecological examination (general) (routine) with abnormal findings Z01.411 2. Cystocele, midline N81.11 3. Rectocele N81.6 4. Screening for malignant neoplasm of cervix Z12.4 THINPREP TIS PAP AND HPV MRNA E6/E7 WITH REFLEX TO HPV 16,18/45 5. Encounter for screening for human papillomavirus (HPV) Z11.51 THINPREP TIS PAP AND HPV MRNA E6/E7 WITH REFLEX TO HPV 16,18/45 6. Other screening mammogram Z12.31 Bilateral screening mammogram with tomosynthesis 7. Postmenopausal Z78.0 DEXA bone density Follow up in about 1 year (around 05/05/2025) for Yearly. Faina Mendoza DO 05/05/2024 10:38 AM documented in this encounter [facility] 04-16-2024 Note Progress Note-Physic sean Patient: MILLY SALAZAR Age: 68 years Sex: Female : 1955 Associated Diagnoses: None Author: Elliot Whitehead MD Postoperative Information Postoperative disposition: Postoperative disposition: To PACU. Optimetrix number: Optimetrix number [id number]. Anesthetic utilized: General. Health Status Allergies: Allergic [...] when meets criteria ( To home ). [facility] Comment on above: Result Comment: Elec tronically Signed By: Elliot Whitehead MD\.br\Date and Time Signed: 04/16/24 13:41 EST 04-16-2024 [...] these instructions at home: Medicines ??? Take axms-ayh-frpposs and prescription medicines only as told by your health care provider. ??? Ask your health care provider if the medicine prescribed to you: ? Requires you to avoid driving or using machinery. ? Can cause constipation. You may need to take these actions to prevent or treat constipation: ? Drink enough fluid to keep your urine pale yellow. ? Take krgg-wuz-zvrpplo or prescription medicines. ? Eat foods that [...] and water are not available, use hand biomedical scientist. ? Change your dressing as told by [...] for signs of (more content not included)... [facility] 04-16-2024 Note H&P Update History and [...] Sister and Brother. Hypertension: Sister and Brother. [facility] 04-16-2024 Note Progress Note-Physic sean Patient: MILLY SALAZAR Age: 68 years Sex: Female : 1955 Associated Diagnoses: None Author: Elliot Whitehead MD Preoperative Information Anesthesia Preop Info: Time patient [...] tab(s), Refill(s) 0, TAKE 1 TABLET DAILY, [facility], 162.6, cm, 04/02/24 7:11:00 EST, [...] All Problems Abdominal hernia / SNOMED CT 76223805 / Confirmed BMI 35.0-35.9,adult / SNOMED CT 869571088 / Confirmed COVID-19 / SNOMED CT 2791228288 / Confirmed 04/27 Hypertension / SNOMED CT 4144956450 / Confirmed Nonsmoker / SNOMED CT 90424337 / Confirmed Right upper quadrant pain / SNOMED CT 045328243 / Confirmed Screening for hyperlipidemia / SNOMED CT 564471379 / Confirmed Ventral hernia / SNOMED CT 8097198144 / Confirmed Wellness examination / SNOMED CT 269274116 / Confirmed Canceled: BMI 34.0-34.9,adult / SNOMED CT 554343078 Canceled: Obesity (BMI 30.0-34.9) / SNOMED CT 329514563956780, Active Problems (9) Abdominal hernia BMI 35.0-35.9,adult COVID-19 Hypertension Nonsmoker Right upper quadrant pain Screening for hyperlipidemia Ventral hernia Wellness examination Histories Past Medical History: No active or resolved past medical history items have been selected or recorded. Family History: Hypertension Brother Sister Diabetes mellitus type 2 Sister Brother Alcoholism Father Procedure history: Colonoscopy ([id number]). Comments: 08/14/2022 13:52 BRIAN - Anu Bruno LPN 2017 Cataract surgery ([id number]). Social History Social & Psychosocial Habits Alcohol [...] 04/01/2024 Risk A (more content not included)... [facility] Comment on above: Result Comment: Elec [...] is also called a myocardial infarction, or [place]. If you think you are having a [...] these instructions at home: Medicines ??? Take yxil-ecn-kibzbru and prescription medicines only as told by [...] ??? You fe (more content not included)... 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 female here for abdominal hernia Helen YE referring Patient presented to PCP with large abdominal hernia visible through her shirt, no previous abdominal surgeries US abdomen done 12/13/2022 (imaging requested) History of Present Illness 68-year-old female referred to us from [facility] care for evaluation of an abdominal wall [...] obstructive symptoms. She plans to see her REAL ESTATE ASSOCIATE ATTORNEY for her hysterectomy consultation at the end of April just before leaving for vacation to [place] on May 07. She denies any previous [...] with her hysterectomy then her trip to [place] and undergo repair afterwards in the spring that is unless the CT scan shows that there is bowel in the hernia itself or she becomes symptomatic from the hernia or develop signs and symptoms of incarceration/strangulation. In which case we would proceed with a more expedient robotic repair. Ordered: CT Abdomen/Pelvis w/ Contrast E&M of New Patient Moderate 45-59 Min [id number] 2. BMI 34.0-34.9,adult (Z68.34: Body mass index [BMI] 34.0-34.9, adult) Education provided Ordered: CT Abdomen/Pelvis w/ Contrast E&M of New Patient Moderate 45-59 Min 59329 3. Obesity (BMI 30.0-34.9) (E66.9: Obesity, unspecified) As above Ordered: CT Abdomen/Pelvis w/ Contrast E&M of New Patient Moderate 45-59 Min [id number] Portions of this record may have been created with voice recognition artificial intelligence software, specifically Ofelia Feliz, [employer] and or [employer]. Substitutions may have occurred due to the [...] Recorded Hep A, unspecified formulation 12/15/1999 Recorded [facility] Comment on above: Result Comment: Elec tronically Signed By: Tru LIAO, Jesse Shin\.br\Date and Time Signed: 03/03/24 14:33 EDT Evaluation + Plan note Future Appointments Appointment Date:03/10/2024 08:00:00 AM Scheduled Provider: Location:[facility] Appointment Type: Medicare Wellness Subsequent Appointment Date:03/18/2024 11:00:00 AM Scheduled [facility] Type:CT Abdomen/Pelvis Combo (FT) Future Scheduled TestsCT Abdomen/Pelvis w/ Contrast 03/18/24 [facility] [place] Evaluation + Plan note Future Appointments Appointment Date:03/18/2024 11:00:00 AM Scheduled Provider: [facility] Type:CT Abdomen/Pelvis Combo (FT) Appointment Date:07/09/2024 08:20:00 AM Scheduled Provider:Helen Gay Location:[facility] Appointment Type: Open Appointment Date:03/16/2025 08:00:00 AM Scheduled Provider: Location:[facility] Appointment Type: Medicare Wellness Subsequent Future Scheduled TestsHCV Antibody RFX to Quant PCR 03/10/24CT Abdomen/Pelvis w/ Contrast 03/18/24 [facility] Evaluation + Plan note Future Appointments Appointment Date:07/09/2024 08:20:00 AM Scheduled Provider:Helen Gay Location:[facility] Appointment Type: Open Appointment Date:03/16/2025 08:00:00 AM Scheduled Provider: Location:[facility] Appointment Type:FM Medicare Wellness Subsequent Future Scheduled TestsHCV Antibody RFX to Quant PCR 03/10/24 [facility] Evaluation + Plan note Future Appointments Appointment Date:04/16/2024 10:00:00 AM Scheduled Provider: Location:[facility] Appointment Type:Surgery FT Appointment Date:04/25/2024 11:40:00 AM Scheduled Provider:Jesse Ott MD Location:[facility] Appointment Type:GS Post Op 15 Appointment Date:07/09/2024 08:20:00 AM Scheduled Provider:Helen Gay Location:[facility] Appointment Type: Open Appointment Date:03/16/2025 08:00:00 AM Scheduled Provider: Location:[facility] Appointment Type: Medicare Wellness Subsequent Future Scheduled TestsHCV Antibody RFX to Quant PCR 03/10/24 [facility] Evaluation note Diagnosis Encounter for gynecological examination (general) (routine) with abnormal findings- Primary Cystocele, midline Rectocele Screening for malignant neoplasm of cervix Screening for malignant neoplasm of the cervix Encounter for screening for human papillomavirus (HPV) Other screening mammogram Postmenopausal Asymptomatic postmenopausal status (age-related) (natural) [facility] N[facility] No data available for this section [facility] [place] Discharge instructions No data available for this section [facility] [place] Progress note No data available for this section [facility] [place] Summary Purpose Family History No Family History Records Found No data available for this section No data available for this section No Family History Records Found No data available [...] and content) DATE CREATED AUTHOR 04/28/2022 [facility] DATE CREATED AUTHOR AUTHOR'S ORGANIZ ATION 03/16/2024 [facility] DATE CREATED AUTHOR AUTHOR'S ORGANIZ ATION 04/04/2024 [facility] DATE CREATED AUTHOR AUTHOR'S ORGANIZ ATION 04/19/2024 [facility] DATE CREATED AUTHOR AUTHOR'S ORGANIZ ATION 04/21/2024 [facility] DATE CREATED AUTHOR AUTHOR'S ORGANIZ ATION 04/28/2024 [facility] DATE CREATED AUTHOR AUTHOR'S ORGANIZ ATION 05/06/2024 [facility] DATE CREATED AUTHOR AUTHOR'S ORGANIZ ATION 05/08/2024 [facility] DATE CREATED AUTHOR AUTHOR'S ORGANIZ ATION 06/09/2024 [facility] DATE CREATED AUTHOR AUTHOR'S ORGANIZ ATION 06/19/2024 [facility] DATE CREATED AUTHOR AUTHOR'S ORGANIZ ATION 06/21/2024 [facility] DATE CREATED AUTHOR AUTHOR'S ORGANIZ ATION 07/12/2024 [facility] Patient Care team informatio n (unrecognized section and content) 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 Start Date End Date Feliberto Flores MD [address] [place] [address] PCP - General Family Medicine 05/01/23 Faina Mendoza DO [address] [place] [address] Referring Physician Obstetrics and Gynecology 05/01/23 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 Pt BP elevated last took BP pill at 4am. Will alert [facility]. BP taken twice. FOR RECORDS PERTAINING TO PATIENTS WHO ARE [...] BE BASED ON THE PRIMARY CLINICAL RECORDS. [employer] provides no warranty or guarantee of the accuracy or completeness of information in this document.
[2024-08-06 08:27] LABS: Thyroid Stimulating Hormone 2.523 uIU/mL (0.358-3.740)
== END 2024-08-06 07:11 | disposition home or self-care (01) ==
LOC: LAB 07:10
PROVIDERS: PCP Nurse Practitioner; Visit Provider Nurse Practitioner
DX: E03.9 Hypothyroidism, unspecified (principal)
CPT/HCPCS: 36415; 84443

== ENCOUNTER 2025-04-27 07:28 | Outpatient (OUT) | payer MEDICARE, SELFPAY ==
--- OUTSIDE RECORDS SUMMARY | 2025-04-27 07:31 | XMS_ITS | Clinical Summary ---
Author Organization [facility] Address [address] [place] [address] Care Team Providers Care Nursery Hand Name Role Phone Esther Flores MD Primary Care Provider [phone] Faina Mendoza DO Unavailable [phone] Allergies Active AllergyReactionsCriticalityNoted QrbzXmmdxlvwWofmnjvztffOpkhykd67/21/2023 Penicillin ZRuogZgv31/04/2024 Medications MedicationSigDispense QuantityRefillsLast FilledStart DateEnd DateStatus irbesartan-hydroCHLOROthiazide (Avalide) 150-12.5 MG tablet 02/27/2023ctive Active Problems ProblemNoted DateDiagnosed DateBilateral posterior capsular opacification 10/09/2023 Family History RelationNameStatusCommentsBrother3 brothersDaughter1 daughterFatherDeceased MotherDeceasedOtherno family history of cancerSister2 sistersSon1 son Social History Tobacco UseTypesPacks/DayYears UsedDateSmoking Tobacco: NeverSmokeless Tobacco: NeverAlcohol UseStandard Drinks/WeekCommentsYes1 (1 standard drink = 0.6 oz pure alcohol)caffeine intake : 1-2 cups per day coffeeAUDIT-CAnswerDate RecordedQ1: How often do you have a drink containing alcohol?Monthly or less05/05/2024Q2: How many drinks containing alcohol do you have on a typical day when you are drinking?1 or Q3: How often do you have six or more drinks on one occasion?Never05/05/2024HQ-2AnswerDate RecordedPatient Health Questionnaire-2 Ngybb687/30/2024CommentsNoSex and Gender InformationValueDate Recorded Sex Assigned at BirthNot on fileLegal JrbNyrfet68/15/2023 6:53 PM EDTGender LujhforlHemkdj33/15/2023 6:53 PM EDTSexual OrientationNot on file Last Filed Vital Signs Vital SignReadingTime TakenCommentsBlood Rxbpeske250/9746105/05/2024 10:13 AM EST Pulse--Temperature--Respiratory Rate--Oxygen Saturation--Inhaled Oxygen Concentration--Ghuxvt15.1 kg (196 lb 6.4 oz)05/05/2024 10:13 AM PUOSzcgpq324.8 cm (5' 4.5 )04/12/2022 12:00 PM ESTBody Mass Index33.19106/13/2021 12:00 PM EST Plan of Treatment DateTypeDepartmentCare Team (Latest Contact Info)Fhfbjfcomwa79/16/2026 8:30 AM EDTOffice Visit [facility] [address] [address] Faina Mendoza DO [address] [phone] Insurance * Guarantor: Milly Salazar TypeRelation to PatientDate of BirthPhone Billing AddressPersonal/HpkgvvQrbl54[birth year][id number] [address] * Guarantor: Milly Salazar TypeRelation to PatientDate of BirthPhone Billing AddressPersonal/UwuwngCexq25/24/1956 [id number] [address] Care Teams Team MemberRelationshipSpecialtyStart DateEnd Date Esther Flores MD [address] [place] [address] PCP - GeneralFamily Oabbhxxo19/26/23 Faina Mendoza DO [address] [phone] Referring PhysicianObstetrics and Qupytcjifo03/26/23
--- NOTE | 2025-04-27 07:58 | MM_ITS ---
Patient Name: NATHALY FOSTER MR#: [id number] : 1955 Exam Date: 04/27/2025 Ordering Doctor: JULY SHAW . RADIOLOGY REPORT PROCEDURE: MM TOMOSYNTHESIS SCREENING BI COMPARISON: MM TOMOSYNTHESIS SCREENING BI, 04/25/2024. MM TOMOSYNTHESIS SCREENING BI, 04/23/2023. MG MAMM SCREEN 3D LORENZO CAD, 04/19/2022. MAMMO LORENZO SCREEN, 09/02/2008. INDICATIONS: Screening Calculator Name NCI Breast Cancer Risk Assessment Tool 5 Year Breast Cancer Risk 1.20% Lifetime Breast Cancer Risk 4.20% Personal Breast Cancer No Personal Ovarian Cancer No Treatments None Family Cancers None [facility]: [facility] BREAST COMPOSITION: There are scattered areas of fibroglandular density. FINDINGS: RIGHT BREAST: No significant suspicious finding. LEFT BREAST: No significant suspicious finding. DIAGNOSTIC CATEGORY 1--NEGATIVE. RECOMMENDATIONS: ROUTINE MAMMOGRAM AND CLINICAL EVALUATION IN 12 MONTHS. Dictated by: Denis Hendrickson MD on 04/27/2025 at 12:42 Approved by: Denis Hendrickson MD on 04/27/2025 at 12:45
== END 2025-04-27 07:29 | disposition home or self-care (01) ==
LOC: MAMMO 07:28
PROVIDERS: PCP Nurse Practitioner; Visit Provider Nurse Practitioner
DX: Z12.31 Encounter for screening mammogram for malignant neoplasm of breast (principal); E28.39 Other primary ovarian failure
CPT/HCPCS: 77063; 77067; 77080